=== PATIENT | female | born 1955 | race African-American/Black ===

== ENCOUNTER 2019-05-30 06:00 | Day surgery (SDC) | payer BC, MEDICARE ==
[~2019-05-30 06:00] MED LIST: CLINDAMYCIN 900MG PREMIX 50 ML IV ONE; LOSA25TA54 PO; METF500T16 PO; SIMV10TA15 PO
[2019-05-30] MEDS ORDERED: PROCHLORPERAZINE 10 MG/2 ML VIAL. IV PRN (07:00)
[2019-05-30] MEDS ORDERED: IV RINGERS,LACTATED 1000ML 1,000 ML IV SCH (07:00)
[2019-05-30] MEDS ORDERED: ONDANSETRON PF 4 MG/2 ML VIAL. IV PRN (07:00)
[2019-05-30] MEDS ORDERED: fentaNYL PF VIAL 100 MCG/2 ML VIAL IV PRN ×2 (07:00)
[2019-05-30 07:28] LABS: BASO % 1 % (0-3); EOS # 0.3 x10^3/uL (0.0-0.7); EOS % 6 % (0-3); HEMATOCRIT 36.9 % (36.0-47.0); LYMPH # 2.3 x10^3/uL (1.0-4.8); LYMPH % 49 % (24-48); MEAN CORPUSCULAR HEMOGLOBIN 26 pg (25-35); MEAN CORPUSCULAR HGB CONC 33 g/dL (31-37); MEAN CORPUSCULAR VOLUME 80 fL (79-100); MONO # 0.4 x10^3/uL (0.0-1.1); MONO % 8 % (0-9); NEUT # 1.7 x10^3/uL (1.8-7.7); NEUT % 37 % (31-73); PLATELET COUNT 319 x10^3/uL (140-400); RED BLOOD COUNT 4.61 x10^6/uL (3.50-5.40); RED CELL DISTRIBUTION WIDTH 14.4 % (11.5-14.5); WHITE BLOOD COUNT 4.8 x10^3/uL (4.0-11.0)
[2019-05-30 07:40] LABS: ALBUMIN 3.3 g/dL (3.4-5.0); ALBUMIN/GLOBULIN RATIO 0.9 (1.0-1.7); CALCIUM 9.1 mg/dL (8.5-10.1); CREATININE 0.9 mg/dL (0.6-1.0); GFR 76.3; POTASSIUM 4.2 mmol/L (3.5-5.1); TOTAL BILIRUBIN 0.1 mg/dL (0.2-1.0)
[2019-05-30] MEDS ORDERED: METHYLENE BLUE 0.5% 10ml AMPULE. IJ ONE (07:45)
--- NOTE | 2019-05-30 07:47 | HP ---
ADMIT DATE: HISTORY OF PRESENT ILLNESS: The patient is seen again for a right breast mass and pain. Apparently, she had a mammogram done, which shows a suspicious area in the upper outer quadrant of the right breast. PAST MEDICAL HISTORY: Shows no childhood diseases and she is not being treated for anything that she knows of. She did have a hysterectomy about a year ago and does not know what was done for. ALLERGIES: SHE DOES HAVE ALLERGIES TO PENICILLIN AND WHEN SHE TAKES CODEINE SHE STATES TO BE NAUSEATED. PAST SURGICAL HISTORY: The patient had a recent mammogram and it did show a suspicious area in the upper-outer quadrant of the right breast and that is why she was sent to us. FAMILY HISTORY: Noncontributory. No evidence of breast cancer. SOCIAL HISTORY: Shows that she does not use illicit drugs, smoke or drink alcoholic beverages. She has no children. a REVIEW OF SYSTEMS: Showed pain in the upper outer quadrant of both breasts, no masses are palpable and she has had no previous pathology of her breast to her knowledge. PHYSICAL EXAMINATION: GENERAL: Shows an alert female in no acute distress. HEAD, EYES, NOSE AND THROAT: Grossly normal. CHEST: Clear bilaterally to auscultation with no wheezing, rhonchi or other abnormalities. HEART: Heart had a rate of 70 beats per minute estimated and it was regular. No murmurs were noted. BREASTS: Showed as on the previous examination, no masses or other abnormalities and there was no nipple discharge. There was an ill-defined thickness in the folds but no ill-defined mass in the upper-outer quadrant of the breast. The axillary area was negative. ABDOMEN: Not examined. EXTREMITIES: Grossly normal. IMPRESSION: 1. Right breast mass. 2. She has diabetes. 3. Hypertension for which she has been treated. 4. She has hypercholesterolemia for which she takes statins. PLAN: The plan is to do a right breast biopsy. We did present the needle biopsy possibilities and explained those to her and let the radiologist do that. She wanted to have the mass removed and we will plan the same. CHALINO SAEZ MD DR: RENO/briana JOB#: [id number] / [id number] SEBLE
[2019-05-30 07:54] LABS: PROTHROMBIN TIME PATIENT 12.6 SEC (11.7-14.0)
[2019-05-30] MEDS ORDERED: METHYLENE BLUE 0.5% 10ml AMPULE. ONE (09:17)
--- NOTE | 2019-05-30 09:29 | PDOC ---
SURGICAL PROGRESS NOTE Subjective No change in dicated H&P. Vital Signs Vital Signs Date Time Temp Pulse Resp B/P (MAP) Pulse Ox O2 Delivery O2 Flow Rate FiO2 05/30/19 07:11 97.2 69 20 97 97.2 05/30/19 07:04 139/64 Room Air Labs Laboratory Tests Test 05/30/19 07:15 White Blood Count 4.8 x10^3/uL (4.0-11.0) Red Blood Count 4.61 x10^6/uL (3.50-5.40) Hemoglobin 12.0 g/dL (12.0-15.5) Hematocrit 36.9 % (36.0-47.0) Mean Corpuscular Volume 80 fL (79-100) Mean Corpuscular Hemoglobin 26 pg (25-35) Mean Corpuscular Hemoglobin Concent 33 g/dL (31-37) Red Cell Distribution Width 14.4 % (11.5-14.5) Platelet Count 319 x10^3/uL (140-400) Neutrophils (%) (Auto) 37 % (31-73) Lymphocytes (%) (Auto) 49 % (24-48) Monocytes (%) (Auto) 8 % (0-9) Eosinophils (%) (Auto) 6 % (0-3) Basophils (%) (Auto) 1 % (0-3) Neutrophils # (Auto) 1.7 x10^3/uL (1.8-7.7) Lymphocytes # (Auto) 2.3 x10^3/uL (1.0-4.8) Monocytes # (Auto) 0.4 x10^3/uL (0.0-1.1) Eosinophils # (Auto) 0.3 x10^3/uL (0.0-0.7) Basophils # (Auto) 0.0 x10^3/uL (0.0-0.2) Prothrombin Time 12.6 SEC (11.7-14.0) Prothromb Time International Ratio 1.0 (0.8-1.1) Activated Partial Thromboplast Time 28 SEC (24-38) Sodium Level 143 mmol/L (136-145) Potassium Level 4.2 mmol/L (3.5-5.1) Chloride Level 107 mmol/L (98-107) Carbon Dioxide Level 28 mmol/L (21-32) Anion Gap 8 (6-14) Blood Urea Nitrogen 13 mg/dL (7-20) Creatinine 0.9 mg/dL (0.6-1.0) Estimated GFR (Cockcroft-Gault) 76.3 BUN/Creatinine Ratio 14 (6-20) Glucose Level 165 mg/dL (70-99) Calcium Level 9.1 mg/dL (8.5-10.1) Total Bilirubin 0.1 mg/dL (0.2-1.0) Aspartate Amino Transf (AST/SGOT) 13 U/L (15-37) Alanine Aminotransferase (ALT/SGPT) 19 U/L (14-59) Alkaline Phosphatase 108 U/L (46-116) Total Protein 7.0 g/dL (6.4-8.2) Albumin 3.3 g/dL (3.4-5.0) Albumin/Globulin Ratio 0.9 (1.0-1.7) Laboratory Tests Test 05/30/19 07:15 White Blood Count 4.8 x10^3/uL (4.0-11.0) Red Blood Count 4.61 x10^6/uL (3.50-5.40) Hemoglobin 12.0 g/dL (12.0-15.5) Hematocrit 36.9 % (36.0-47.0) Mean Corpuscular Volume 80 fL (79-100) Mean Corpuscular Hemoglobin 26 pg (25-35) Mean Corpuscular Hemoglobin Concent 33 g/dL (31-37) Red Cell Distribution Width 14.4 % (11.5-14.5) Platelet Count 319 x10^3/uL (140-400) Neutrophils (%) (Auto) 37 % (31-73) Lymphocytes (%) (Auto) 49 % (24-48) Monocytes (%) (Auto) 8 % (0-9) Eosinophils (%) (Auto) 6 % (0-3) Basophils (%) (Auto) 1 % (0-3) Neutrophils # (Auto) 1.7 x10^3/uL (1.8-7.7) Lymphocytes # (Auto) 2.3 x10^3/uL (1.0-4.8) Monocytes # (Auto) 0.4 x10^3/uL (0.0-1.1) Eosinophils # (Auto) 0.3 x10^3/uL (0.0-0.7) Basophils # (Auto) 0.0 x10^3/uL (0.0-0.2) Prothrombin Time 12.6 SEC (11.7-14.0) Prothromb Time International Ratio 1.0 (0.8-1.1) Activated Partial Thromboplast Time 28 SEC (24-38) Sodium Level 143 mmol/L (136-145) Potassium Level 4.2 mmol/L (3.5-5.1) Chloride Level 107 mmol/L (98-107) Carbon Dioxide Level 28 mmol/L (21-32) Anion Gap 8 (6-14) Blood Urea Nitrogen 13 mg/dL (7-20) Creatinine 0.9 mg/dL (0.6-1.0) Estimated GFR (Cockcroft-Gault) 76.3 BUN/Creatinine Ratio 14 (6-20) Glucose Level 165 mg/dL (70-99) Calcium Level 9.1 mg/dL (8.5-10.1) Total Bilirubin 0.1 mg/dL (0.2-1.0) Aspartate Amino Transf (AST/SGOT) 13 U/L (15-37) Alanine Aminotransferase (ALT/SGPT) 19 U/L (14-59) Alkaline Phosphatase 108 U/L (46-116) Total Protein 7.0 g/dL (6.4-8.2) Albumin 3.3 g/dL (3.4-5.0) Albumin/Globulin Ratio 0.9 (1.0-1.7) CHALINO SAEZ MD May 30, 2019 09:29
--- NOTE | 2019-05-30 09:39 | PDOC ---
SURGICAL PROGRESS NOTE Subjective Surgeon: .................................................... ........................... Saez Pre-Op Diagnosis:................................................................... R Breast Biopsy Post-Op Diagnosis:................................................................. R Breast Biopsy Procedure:.......... .................................................................... R Breast Biopsy via needle localization Anesthesia:........ .....................................................................General Estimated Blood Loss: ............................. ...............................5cc [id number]......................................................................... ...........see anesthesia sheet Drains: ................................................................................ ...None Condition:... ............................................................................ Satisfactory Vital Signs Vital Signs Date Time Temp Pulse Resp B/P (MAP) Pulse Ox O2 Delivery O2 Flow Rate FiO2 05/30/19 07:11 97.2 69 20 97 97.2 05/30/19 07:04 139/64 Room Air Labs Laboratory Tests Test 05/30/19 07:15 White Blood Count 4.8 x10^3/uL (4.0-11.0) Red Blood Count 4.61 x10^6/uL (3.50-5.40) Hemoglobin 12.0 g/dL (12.0-15.5) Hematocrit 36.9 % (36.0-47.0) Mean Corpuscular Volume 80 fL (79-100) Mean Corpuscular Hemoglobin 26 pg (25-35) Mean Corpuscular Hemoglobin Concent 33 g/dL (31-37) Red Cell Distribution Width 14.4 % (11.5-14.5) Platelet Count 319 x10^3/uL (140-400) Neutrophils (%) (Auto) 37 % (31-73) Lymphocytes (%) (Auto) 49 % (24-48) Monocytes (%) (Auto) 8 % (0-9) Eosinophils (%) (Auto) 6 % (0-3) Basophils (%) (Auto) 1 % (0-3) Neutrophils # (Auto) 1.7 x10^3/uL (1.8-7.7) Lymphocytes # (Auto) 2.3 x10^3/uL (1.0-4.8) Monocytes # (Auto) 0.4 x10^3/uL (0.0-1.1) Eosinophils # (Auto) 0.3 x10^3/uL (0.0-0.7) Basophils # (Auto) 0.0 x10^3/uL (0.0-0.2) Prothrombin Time 12.6 SEC (11.7-14.0) Prothromb Time International Ratio 1.0 (0.8-1.1) Activated Partial Thromboplast Time 28 SEC (24-38) Sodium Level 143 mmol/L (136-145) Potassium Level 4.2 mmol/L (3.5-5.1) Chloride Level 107 mmol/L (98-107) Carbon Dioxide Level 28 mmol/L (21-32) Anion Gap 8 (6-14) Blood Urea Nitrogen 13 mg/dL (7-20) Creatinine 0.9 mg/dL (0.6-1.0) Estimated GFR (Cockcroft-Gault) 76.3 BUN/Creatinine Ratio 14 (6-20) Glucose Level 165 mg/dL (70-99) Calcium Level 9.1 mg/dL (8.5-10.1) Total Bilirubin 0.1 mg/dL (0.2-1.0) Aspartate Amino Transf (AST/SGOT) 13 U/L (15-37) Alanine Aminotransferase (ALT/SGPT) 19 U/L (14-59) Alkaline Phosphatase 108 U/L (46-116) Total Protein 7.0 g/dL (6.4-8.2) Albumin 3.3 g/dL (3.4-5.0) Albumin/Globulin Ratio 0.9 (1.0-1.7) Laboratory Tests Test 05/30/19 07:15 White Blood Count 4.8 x10^3/uL (4.0-11.0) Red Blood Count 4.61 x10^6/uL (3.50-5.40) Hemoglobin 12.0 g/dL (12.0-15.5) Hematocrit 36.9 % (36.0-47.0) Mean Corpuscular Volume 80 fL (79-100) Mean Corpuscular Hemoglobin 26 pg (25-35) Mean Corpuscular Hemoglobin Concent 33 g/dL (31-37) Red Cell Distribution Width 14.4 % (11.5-14.5) Platelet Count 319 x10^3/uL (140-400) Neutrophils (%) (Auto) 37 % (31-73) Lymphocytes (%) (Auto) 49 % (24-48) Monocytes (%) (Auto) 8 % (0-9) Eosinophils (%) (Auto) 6 % (0-3) Basophils (%) (Auto) 1 % (0-3) Neutrophils # (Auto) 1.7 x10^3/uL (1.8-7.7) Lymphocytes # (Auto) 2.3 x10^3/uL (1.0-4.8) Monocytes # (Auto) 0.4 x10^3/uL (0.0-1.1) Eosinophils # (Auto) 0.3 x10^3/uL (0.0-0.7) Basophils # (Auto) 0.0 x10^3/uL (0.0-0.2) Prothrombin Time 12.6 SEC (11.7-14.0) Prothromb Time International Ratio 1.0 (0.8-1.1) Activated Partial Thromboplast Time 28 SEC (24-38) Sodium Level 143 mmol/L (136-145) Potassium Level 4.2 mmol/L (3.5-5.1) Chloride Level 107 mmol/L (98-107) Carbon Dioxide Level 28 mmol/L (21-32) Anion Gap 8 (6-14) Blood Urea Nitrogen 13 mg/dL (7-20) Creatinine 0.9 mg/dL (0.6-1.0) Estimated GFR (Cockcroft-Gault) 76.3 BUN/Creatinine Ratio 14 (6-20) Glucose Level 165 mg/dL (70-99) Calcium Level 9.1 mg/dL (8.5-10.1) Total Bilirubin 0.1 mg/dL (0.2-1.0) Aspartate Amino Transf (AST/SGOT) 13 U/L (15-37) Alanine Aminotransferase (ALT/SGPT) 19 U/L (14-59) Alkaline Phosphatase 108 U/L (46-116) Total Protein 7.0 g/dL (6.4-8.2) Albumin 3.3 g/dL (3.4-5.0) Albumin/Globulin Ratio 0.9 (1.0-1.7) CHALINO SAEZ MD May 30, 2019 09:39
[2019-05-30] MEDS ORDERED: LIDOCAINE 2% PF 5 ML VIAL. ONE (10:05)
[2019-05-30] MEDS ORDERED: PROPOFOL 20 ML IV ONE (10:05)
[2019-05-30] MEDS ORDERED: fentaNYL PF VIAL 100 MCG/2 ML VIAL ONE ×3 (10:05→12:20)
[2019-05-30] MEDS ORDERED: FAMOTIDINE 20 MG/2 ML VIAL ONE (10:16)
[2019-05-30] MEDS ORDERED: ONDANSETRON PF 4 MG/2 ML VIAL. ONE (10:16)
[2019-05-30] MEDS ORDERED: DEXAMETHASONE SOD PHOS 4 MG/ML VIAL ONE (10:16)
[2019-05-30] MEDS ORDERED: DESFLURANE 61 TO 120 MINUTES IH ONE (10:51)
[2019-05-30] MEDS ORDERED: ePHEDrine PF IN SALINE 50 MG/10 ML SYRINGE. IV ONE (10:58)
[2019-05-30] MEDS ORDERED: HYDR-2759 PO (12:02)
[2019-05-30 12:30] VITALS: BP 116/54
[2019-05-30] MEDS ORDERED: PROCHLORPERAZINE 10 MG/2 ML VIAL. ONE (12:44)
--- NOTE | 2019-05-30 14:07 | RAD ---
Specimen radiograph INDICATION: 63-year-old woman recalled from screening for developing right breast calcifications and recommended for biopsy. Patient elects surgical biopsy over needle core biopsy. She is status post needle localization earlier the same day with subsequent surgical biopsy. Specimen radiograph requested to assess for presence of targeted calcifications. FINDINGS: Single radiograph of the surgical specimen indicates the presence of calcifications clustered over the 11 C grid [place]. IMPRESSION: The calcifications targeted by needle localization are clustered over the 11 C grid position. Electronically signed by: Guzman Mtz MD (05/30/2019 2:04 PM) [facility]
--- NOTE | 2019-05-30 21:58 | OP ---
DATE OF SURGERY: 05/30/2019 SURGEON: Gabriel Saez MD PREOPERATIVE DIAGNOSIS: Suspicious microcalcifications of the right breast. POSTOPERATIVE DIAGNOSIS: Suspicious microcalcifications the right breast. PROCEDURE: Right breast biopsy with needle localization. ANESTHESIA: General. TECHNIQUE: Under general anesthesia, the patient was properly prepped and draped in a routine fashion. She had needle localization of a suspicious area done and the guidewire went into the inferior lateral portion of the right breast. We therefore made an incision close to the guidewire, following the skin lines in the lateral portion of the right breast. We carried this down through the skin with a 15 blade. We then delivered the wire into the subcutaneous and out into the wound. We pulled away the skin edges using Sadiq retractors and grasped the tissue and the guidewire with a clamp. We slowly divided the tissue around the guidewire from the patient using cautery. As it got deeper, we used Lozada retractors and we were able to get probably 2-3 cm in all directions around the guidewire and followed it down past its tip. We did see the methylene blue that had been injected and therefore the area of suspicion was removed. We removed it totally using cautery and bleeding was minimal, probably only 4-5 mL. The specimen was sent to x-ray and I talked to the radiologist who looked at the specimen and had the x-ray of it and the suspicious calcifications seen in the patient preop had been removed and when the specimen that had been removed from her breast. This having been done, we inspected the wound and then approximated the deeper tissues using 3-0 and 4-0 Vicryl, obliterating the space. Once this was done, we used 5-0 subcuticular Vicryl to close the skin. A sterile dressing was applied and the procedure was terminated as she had a good cosmetic result. The blood loss as stated before was about 5 mL or less. No drains were used. FLUIDS GIVEN: Can be obtained from the anesthesia sheet. CONDITION OF THE PATIENT: Satisfactory as she has returned to the recovery room. GABRIEL SAEZ MD DR: RENO/briana JOB#: [id number] / [id number] MTDD
--- NOTE | 2019-05-31 08:32 | RAD ---
Examination: Mammographically guided right breast needle localization INDICATION: Right breast developing calcifications requested for needle localization prior to surgical excisional biopsy. COMPARISON: Bilateral screening mammogram of 03/14/2019 and right diagnostic mammogram of 03/14/2019 TECHNIQUE AND FINDINGS: The annotated cluster of calcifications recommended for biopsy are located in the posterior lateral right breast based on the outside films provided. They are a loose cluster of fine pleomorphic calcifications approximately 9 mm in maximum span that are amenable to stereotactic core needle biopsy but out of deference to patient preference, are targeted for needle localization for excisional biopsy at this visit. I performed an initial right diagnostic preprocedural planning mammogram with 2-D and 3-D technique to confirm the visibility and accessibility of the cluster of calcifications for needle localization as well as determine the optimal procedural approach. Following review of the preprocedural images, I elected to proceed with needle localization from a lateral medial approach. Informed consent was obtained and an appropriate procedural pause observed. Then using standard sterile technique, local anesthesia and mammographic imaging guidance, a 5 Amharic [place] needle was advanced from a lateral approach into the cluster of calcifications in the lateral posterior right breast. Per the referring surgeon's request, a small amount (0.4 mL) of methylene blue was injected through the needle into the planned operative cavity and a hookwire was deployed through the small cluster of calcifications requested for excisional biopsy. Postprocedural CC and LM views of the right breast with 2-D technique confirmed satisfactory positioning of the wire through the cluster of calcifications with no postprocedural complications. Patient was then transported in stable condition to the perioperative anesthesia care unit for further care and management in anticipation of surgery later the same day. IMPRESSION: Successful mammographically guided right breast needle localization of a cluster of calcifications in the lateral posterior right breast. A specimen radiograph is recommended. It should contain the targeted calcifications and localizing wire. No biopsy clip is expected as the targeted calcifications have not previously been biopsied. Discussed with Dr. Montero in person at approximately 9:55 AM on May 30, 2019.
--- NOTE | 2019-06-05 15:52 | PATHOLOGY ---
[facility] Accession Number: [id number] . 01 Material submitted: . breast - RIGHT BREAST MASS. Modifiers: right . 01 Clinical history: . Breast tumor. . 02 Diagnosis: Breast tissue, wire localized right breast biopsy: - Ancient fibroadenoma, with associated calcifications. - Fibrocystic changes, focal, with mild duct ectasia and apocrine metaplasia. . (JPM:mml; 06/01/2019) [facility] 06/05/2019 1419 Local . 02 Comment: There is no atypia or evidence of malignancy. . (JPM:mml; 06/01/2019) . 02 Electronically signed: . Deshawn Reyes MD, Pathologist NPI- [id number] . 01 Gross description: . Received in formalin labeled "Lauren Pinto, right breast mass calcs at 11-C see rad report" is an unoriented lumpectomy specimen weighing 21 g and measuring 6.5 x 6.1 x 1.0 cm. Green ink is used to indicate the area of calcifications seen on radiograph. The remainder of the external surface is inked black. A guidewire extends from one aspect of the specimen. The specimen is serially sectioned into 11 slices to reveal a yellow-rausch homogeneous cut surface without definitive lesions or masses. The area of calcifications seen on radiograph is located within slices 6-9. No biopsy clips are grossly identified. The specimen is submitted entirely as follows: A1-A2 slice 1, perpendicular sections A3-A4 slice 2 A5-A6 slice 3 A7-A8 slice 4 A9-A10 slice 5 A11-A12 slice 6 A13-A14 slice 7 A15-A16 slice 8 A17 slice 9 A18 slice 10 A19-A20 slice 11, perpendicular sections The specimen is removed from the patient at 1049 and placed in formalin at 1120 on 05/30/2019. The specimen is removed from formalin at 2340 on 05/30/2019. ([facility]; 05/30/2019) [facility] 05/30/2019 1719 Local . 02 Pathologist provided ICD-10: D24.1, N60.11, N60.41, N60.81 . 02 CPT . 026812 Specimen Comment: A courtesy copy of this report has been sent to [phone], [phone] Specimen Comment: [id number] Specimen Comment: Report sent to / DR VENTURA Performed at: 01 [facility] [address], [place] [id number] MD Wilberto Odell MD Phone: [phone] Performed at: 02 [facility] [address], [place] [id number] MD Deshawn Reyes MD Phone: [phone]
== END 2019-05-30 13:25 | disposition home or self-care (01) ==
LOC: US 06:00
PROVIDERS: ATTEND Specialist
DX: R92.0 Mammographic microcalcification found on diagnostic imaging of breast (principal); D24.1 Benign neoplasm of right breast; N60.11 Diffuse cystic mastopathy of right breast; E11.9 Type 2 diabetes mellitus without complications; I10 Essential (primary) hypertension; E78.00 Pure hypercholesterolemia, unspecified; Z79.01 Long term (current) use of anticoagulants; Z88.0 Allergy status to penicillin; Z79.84 Long term (current) use of oral hypoglycemic drugs
CPT/HCPCS: 19281; 19301; 36415; 76098; 80053; 85025; 85610; 85730; 88307; A7015; J0171; J0780; J1100; J2001; J2405; J2704; J3010; J3490; J7120

== ENCOUNTER 2019-09-29 16:57 | Inpatient (IN) | payer BC ==
[~2019-09-29] VITALS: Ht 167.6 cm; Wt 81.8 kg
[~2019-09-29 16:57] MED LIST changes: -CLINDAMYCIN 900MG PREMIX 50 ML IV ONE; +HYDR-2759 PO
[2019-09-29] MEDS ORDERED: fentaNYL PF VIAL 100 MCG/2 ML VIAL IVP ONE ×2 (17:45→19:45)
[2019-09-29] MEDS ORDERED: FAMOTIDINE 20 MG/2 ML VIAL IVP ONE (17:45)
[2019-09-29] MEDS ORDERED: IV NORMAL SALINE 1000ML BAG 1,000 ML IV ONE ×2 (17:45→21:30)
[2019-09-29 17:54] LABS: BASO # 0.1 x10^3/uL (0.0-0.2); BASO % 1 % (0-3); EOS % 0 % (0-3); HEMATOCRIT 38.9 % (36.0-47.0); HEMOGLOBIN 12.8 g/dL (12.0-15.5); LYMPH # 1.3 x10^3/uL (1.0-4.8); LYMPH % 14 % (24-48); MEAN CORPUSCULAR HEMOGLOBIN 27 pg (25-35); MEAN CORPUSCULAR HGB CONC 33 g/dL (31-37); MEAN CORPUSCULAR VOLUME 81 fL (79-100); MONO # 0.7 x10^3/uL (0.0-1.1); MONO % 7 % (0-9); NEUT # 7.6 x10^3/uL (1.8-7.7); NEUT % 79 % (31-73); PLATELET COUNT 316 x10^3/uL (140-400); RED BLOOD COUNT 4.83 x10^6/uL (3.50-5.40); RED CELL DISTRIBUTION WIDTH 13.9 % (11.5-14.5); WHITE BLOOD COUNT 9.7 x10^3/uL (4.0-11.0)
[2019-09-29 18:36] LABS: CALCIUM 8.8 mg/dL (8.5-10.1); CREATININE 0.9 mg/dL (0.6-1.0); POTASSIUM 3.8 mmol/L (3.5-5.1)
[2019-09-29 18:42] LABS: ALBUMIN 3.5 g/dL (3.4-5.0); MAGNESIUM 1.1 mg/dL (1.8-2.4); TOTAL BILIRUBIN 0.4 mg/dL (0.2-1.0); TOTAL PROTEIN 6.9 g/dL (6.4-8.2)
[2019-09-29] MEDS ORDERED: IOHEXOL 300 MG/ML 100ML VIAL. IV ONE (19:00)
[2019-09-29] MEDS ORDERED: CONTRAST GIVEN. MC PRN (19:00)
[2019-09-29 19:27] LABS: BILIRUBIN,URINE NEGATIVE (NEG); CLARITY,URINE CLEAR; COLOR,URINE YELLOW; NITRITE,URINE NEGATIVE (NEG); PROTEIN,URINE NEGATIVE (NEG-TRACE); UROBILINOGEN,URINE 0.2 mg/dL (0.2 mg/dL)
[2019-09-29] MEDS ORDERED: MAGNESIUM SULFATE 1GM 100 ML IV ONE (19:30)
[2019-09-29 19:32] LABS: BARBITURATES NEG (NEG); BENZODIAZEPINES NEG (NEG); CANNABINOIDS NEG (NEG); COCAINE NEG (NEG); METHADONE NEG (NEG); OPIATES NEG (NEG); PHENCYCLIDINE NEG (NEG)
[2019-09-29 19:37] LABS: AMPHETAMINE/METHAMPHETAMINE NEG (NEG); BACTERIA,URINE FEW /HPF (0-FEW); RBC,URINE RARE /HPF (0-2); SQUAMOUS EPITHELIAL CELL,UR FEW /LPF; WBC,URINE RARE /HPF (0-4)
--- NOTE | 2019-09-29 19:45 | PHYS DOC ---
Past Medical History Past Medical History: Bipolar, Diabetes-Type II, GERD, Hypertension, Other Additional Past Medical Histor: stomach ulcers (JOSE EDUARDO WILEY APRN) Past Surgical History: Hysterectomy, Other Additional Past Surgical Histo: Hernia (JOSE EDUARDO WILEY APRN) Smoking Status: Former Smoker Alcohol Use: None Drug Use: None (JOSE EDUARDO WILEY APRN) General Adult EDM: Chief Complaint: NAUSEA/VOMITING/DIARRHA HPI: HPI: Patient is a 64 year old female with history of acid reflux, stomach ulcers, diabetes type 2, hypertension, bipolar, who presents the ED today complaining of nausea, vomiting, diarrhea, symptoms began 2 weeks ago. Patient denies any hematemesis or melena. She reports following up with her PCP who put her on medication but she states is not helping. She is also complaining of mild intermittent abdominal pain described as mild burning. (JOSE EDUARDO WILEY APRN) Review of Systems: Review of Systems: Constitutional: Denies fever or chills. [] Eyes: Denies change in visual acuity. [] HENT: Denies nasal congestion or sore throat. [] Respiratory: Denies cough or shortness of breath. [] Cardiovascular: Denies chest pain or edema. [] GI: Reports abdominal pain, nausea vomiting and diarrhea [] : Denies dysuria. [] Musculoskeletal: Denies back pain or joint pain. [] Integument: Denies rash. [] Neurologic: Denies headache, focal weakness or sensory changes. [] Psychiatric: Denies depression or anxiety. [] (JOSE EDUARDO WILEY APRN) Heart Score: Risk Factors: Risk Factors: DM, Current or recent (<one month) smoker, HTN, HLP, family history of CAD, obesity. Risk Scores: Score 0 - 3: 2.5% MACE over next 6 weeks - Discharge Home Score 4 - 6: 20.3% MACE over next 6 weeks - Admit for Clinical Observation Score 7 - 10: 72.7% MACE over next 6 weeks - Early Invasive Strategies (JOSE EDUARDO WILEY APRN) Current Medications: Current Medications Medications (Trade) Dose Ordered Sig/Ketty Start Time Stop Time Status Last Admin Dose Admin Famotidine (Pepcid Vial) 20 mg 1X ONCE 09/29/19 17:45 09/29/19 17:46 DC 09/29/19 18:01 20 MG Fentanyl Citrate (Fentanyl 2ml Vial) 50 mcg 1X ONCE 09/29/19 19:45 09/29/19 19:46 Info (CONTRAST GIVEN -- Rx MONITORING) 1 each PRN DAILY PRN 09/29/19 19:00 10/01/19 18:59 Iohexol (Omnipaque 300 Mg/ml) 75 ml 1X ONCE 09/29/19 19:00 09/29/19 19:01 DC 09/29/19 19:26 75 ML Magnesium Sulfate/ Dextrose 100 ml @ 100 mls/hr 1X ONCE 09/29/19 19:30 09/29/19 20:29 Sodium Chloride 1,000 ml @ 1,000 mls/hr 1X ONCE 09/29/19 17:45 09/29/19 18:44 DC 09/29/19 17:59 1,000 MLS/HR (MUTUNGA,JOSE EDUARDO DENT[employer] APPLIANCE MECHANIC) Allergies: Allergies: Allergies Coded Allergies Type Severity Reaction Last Updated Verified Penicillins Allergy Intermediate 05/30/19 Yes codeine Allergy Intermediate 05/30/19 Yes (MUTUNGA,JOSE EDUARDO [employer] APPLIANCE MECHANIC) Physical Exam: PE: Constitutional: Well developed, well nourished, no acute distress, non-toxic appearance. [] HENT: Normocephalic, atraumatic, bilateral external ears normal, oropharynx moist, no oral exudates, nose normal. [] Eyes: PERRLA, EOMI, conjunctiva normal, no discharge. [] Neck: Normal range of motion, no tenderness, supple, no stridor. [] Cardiovascular:Heart rate regular rhythm, no murmur [] Lungs & Thorax: Bilateral breath sounds clear to auscultation [] Abdomen: Bowel sounds normal, soft, no tenderness, no masses, no pulsatile masses. [] Skin: Warm, dry, no erythema, no rash. [] Back: No tenderness, no CVA tenderness. [] Extremities: No tenderness, no cyanosis, no clubbing, ROM intact, no edema. [] Neurologic: Alert and oriented X 3, normal motor function, normal sensory function, no focal deficits noted. [] Psychologic: Flat affect (MUTUNGA,JOSE EDUARDO [employer] APPLIANCE MECHANIC) Current Patient Data: Labs: Laboratory Tests Test 09/29/19 17:30 09/29/19 18:15 09/29/19 19:15 White Blood Count 9.7 x10^3/uL (4.0-11.0) Red Blood Count 4.83 x10^6/uL (3.50-5.40) Hemoglobin 12.8 g/dL (12.0-15.5) Hematocrit 38.9 % (36.0-47.0) Mean Corpuscular Volume 81 fL (79-100) Mean Corpuscular Hemoglobin 27 pg (25-35) Mean Corpuscular Hemoglobin Concent 33 g/dL (31-37) Red Cell Distribution Width 13.9 % (11.5-14.5) Platelet Count 316 x10^3/uL (140-400) Neutrophils (%) (Auto) 79 % (31-73) H Lymphocytes (%) (Auto) 14 % (24-48) L Monocytes (%) (Auto) 7 % (0-9) Eosinophils (%) (Auto) 0 % (0-3) Basophils (%) (Auto) 1 % (0-3) Neutrophils # (Auto) 7.6 x10^3/uL (1.8-7.7) Lymphocytes # (Auto) 1.3 x10^3/uL (1.0-4.8) Monocytes # (Auto) 0.7 x10^3/uL (0.0-1.1) Eosinophils # (Auto) 0.0 x10^3/uL (0.0-0.7) Basophils # (Auto) 0.1 x10^3/uL (0.0-0.2) Sodium Level 136 mmol/L (136-145) Potassium Level 3.8 mmol/L (3.5-5.1) Chloride Level 102 mmol/L (98-107) Carbon Dioxide Level 26 mmol/L (21-32) Anion Gap 8 (6-14) Blood Urea Nitrogen 9 mg/dL (7-20) Creatinine 0.9 mg/dL (0.6-1.0) Estimated GFR (Cockcroft-Gault) 76.0 BUN/Creatinine Ratio 10 (6-20) Glucose Level 205 mg/dL (70-99) H Calcium Level 8.8 mg/dL (8.5-10.1) Magnesium Level 1.1 mg/dL (1.8-2.4) L Total Bilirubin 0.4 mg/dL (0.2-1.0) Aspartate Amino Transferase (AST) 14 U/L (15-37) L Alanine Aminotransferase (ALT) 22 U/L (14-59) Alkaline Phosphatase 99 U/L (46-116) Total Protein 6.9 g/dL (6.4-8.2) Albumin 3.5 g/dL (3.4-5.0) Albumin/Globulin Ratio 1.0 (1.0-1.7) Lipase 280 U/L (73-393) Ethyl Alcohol Level < 10 mg/dL (0-10) Urine Collection Type Void Urine Color Yellow Urine Clarity Clear Urine pH 6.0 (<5.0-8.0) Urine Specific Truman 1.020 (1.000-1.030) Urine Protein Negative mg/dL (NEG-TRACE) Urine Glucose (UA) 500 mg/dL (NEG) Urine Ketones (Stick) 15 mg/dL (NEG) Urine Blood Negative (NEG) Urine Nitrite Negative (NEG) Urine Bilirubin Negative (NEG) Urine Urobilinogen Dipstick 0.2 mg/dL (0.2 mg/dL) Urine Leukocyte Esterase Negative (NEG) Urine RBC Rare /HPF (0-2) Urine WBC Rare /HPF (0-4) Urine Squamous Epithelial Cells Few /LPF Urine Bacteria Few /HPF (0-FEW) Urine Mucus Slight /LPF Urine Opiates Screen Neg (NEG) Urine Methadone Screen Neg (NEG) Urine Barbiturates Neg (NEG) Urine Phencyclidine Screen Neg (NEG) Urine Amphetamine/Methamphetamine Neg (NEG) Urine Benzodiazepines Screen Neg (NEG) Urine Cocaine Screen Neg (NEG) Urine Cannabinoids Screen Neg (NEG) Urine Ethyl Alcohol Neg (NEG) Laboratory Tests 09/29/19 17:30 Laboratory Tests 09/29/19 18:15 Vital Signs: Vital Signs Date Time Temp Pulse Resp B/P (MAP) Pulse Ox O2 Delivery O2 Flow Rate FiO2 09/29/19 18:02 24 98 Room Air 09/29/19 17:20 98.4 82 203/93 (129) 98.4 (JOSE EDUARDO WILEY APRN) EKG: EKG: [] (JOSE EDUARDO WILEY APRN) Radiology/Procedures: Radiology/Procedures: []PROCEDURE: CT ABD PELV W/ IV CONTRST ONLY CT SCAN OF THE ABDOMEN AND PELVIS WITH IV CONTRAST. History: Nausea and vomiting Comparison:January 23, 2014. Procedure: Contiguous axial images of the abdomen and pelvis were performed after the administration of 75 cc of Omni 300 IV contrast. Oral contrast: No. Findings: There is mild pleural effusions in the lung bases. The gallbladder is distended and is mild wall thickening and enhancement with minimal surrounding inflammation. The appendix is normal. There is mild wall thickening of the left colon. There is a trace of free fluid in the pelvis. Liver: Unremarkable Spleen: Unremarkable Pancreas: Unremarkable Adrenal Glands: Unremarkable Kidneys: Unremarkable There is no mass or lymphadenopathy. There is no free air. The urinary bladder appears normal. Impression: 1. Mild acute cholecystitis. 2. Mild wall thickening of the left colon could be secondary to inflammatory or infectious colitis. There is no diverticulitis. There is no air in colon suggest ischemic colitis. 3. Mild bilateral pleural effusions. 4. Trace of free fluid in the pelvis. End impression PQRS Compliance Statement: One or more of the following individualized dose reduction techniques were utilized for this examination: 1. Automated exposure control 2. Adjustment of the mA and/or kV according to patient size 3. Use of iterative reconstruction technique Electronically signed by: Ryan Stinson III, MD (09/29/2019 7:52 PM) [id number] DICTATED and SIGNED BY: RYAN STINSON III, MD DATE: 09/29/191951 (JOSE EDUARDO WILEY APRN) Course & Med Decision Making: Course & Med Decision Making Pertinent Labs and Imaging studies reviewed. (See chart for details) This is a 64-year-old female patient presenting to the ED today complaining of nausea vomiting abdominal pain and diarrhea that began 2 weeks ago. Has been seen by the PCP. Reports no improvement in symptoms. CBC, UA-no acute findings, glucose 205, anion gap is normal. History of diabetes type 2 BPs 200s/[address] of the abdomen and pelvis was positive for acute cholecystitis. Started on levaquin and flagyl allergic to PCN spoke with Dr. Jacobson general surgery Spoke with Dr. Caballero who accepted patient for admission COVID 19 testing ordered for pre-op (JOSE EDUARDO WILEY APRN) Bernadine Disclaimer: Bernadine Disclaimer: This electronic medical record was generated, in whole or in part, using a voice recognition dictation system. (JOSE EDUARDO WILEY APRN) Departure Departure Impression: Primary Impression: Acute cholecystitis Additional Impression: Hyperglycemia Disposition: 09 ADMITTED INPATIENT Condition: STABLE Referrals: JODIE VENTURA (PCP) Justicifation of Admission Dx: Justifications for Admission: Justification of Admission Dx: Yes Comments: acute cholecystitis. (JOSE EDUARDO WILEY APRN) Attending Signature Attending Signature I have participated in the care of this patient and I have reviewed and agree with all pertinent clinical information above including history, exam, and recommendations. (ROSIE EAST DO) JOSE EDUARDO WILEY APRN Sep 29, 2019 19:45 ROSIE EAST DO Sep 29, 2019 22:29
--- NOTE | 2019-09-29 19:55 | RAD ---
CT SCAN OF THE ABDOMEN AND PELVIS WITH IV CONTRAST. History: Nausea and vomiting Comparison:January 23, 2014. Procedure: Contiguous axial images of the abdomen and pelvis were performed after the administration of 75 cc of Omni 300 IV contrast. Oral contrast: No. Findings: There is mild pleural effusions in the lung bases. The gallbladder is distended and is mild wall thickening and enhancement with minimal surrounding inflammation. The appendix is normal. There is mild wall thickening of the left colon. There is a trace of free fluid in the pelvis. Liver: Unremarkable Spleen: Unremarkable Pancreas: Unremarkable Adrenal Glands: Unremarkable Kidneys: Unremarkable There is no mass or lymphadenopathy. There is no free air. The urinary bladder appears normal. Impression: 1. Mild acute cholecystitis. 2. Mild wall thickening of the left colon could be secondary to inflammatory or infectious colitis. There is no diverticulitis. There is no air in colon suggest ischemic colitis. 3. Mild bilateral pleural effusions. 4. Trace of free fluid in the pelvis. End impression PQRS Compliance Statement: One or more of the following individualized dose reduction techniques were utilized for this examination: 1. Automated exposure control 2. Adjustment of the mA and/or kV according to patient size 3. Use of iterative reconstruction technique Electronically signed by: Parrish Norton III, MD (09/29/2019 7:52 PM) [id number]
[2019-09-29] MEDS ORDERED: ONDANSETRON PF 4 MG/2 ML VIAL. IV PRN (21:15)
[2019-09-29] MEDS ORDERED: LABETALOL 20 MG/4 ML DISP.SYRIN. IVP PRN (21:15)
[2019-09-29] MEDS ORDERED: LABETALOL 20 MG/4 ML DISP.SYRIN. IVP ONE (21:30)
[2019-09-29 21:45] VITALS: BP 165/87
--- NOTE | 2019-09-29 21:58 | HP ---
ADMIT DATE: 09/29/2019 CHIEF COMPLAINT: Nausea, vomiting, and diarrhea. HISTORY OF PRESENT ILLNESS: The patient is a pleasant 64-year-old female who presented with nausea, vomiting, and diarrhea that has been occurring for a couple of days, worse with food, better with no food. She states she has not ate since yesterday. While in the ER, we noted that her abdominal CT is showing cholecystitis. I discussed the case with ER physician. We are going to admit the patient and consult General Surgery. PAST MEDICAL HISTORY: Bipolar, diabetes, gastroesophageal reflux disease, hypertension, peptic ulcer disease, hysterectomy and hernia repair. ALLERGIES: PENICILLIN AND CODEINE. FAMILY HISTORY: Diabetes. SOCIAL HISTORY: She does not drink, smoke or take drugs. MEDICATIONS: Reviewed. Please refer to the MRAD. REVIEW OF SYSTEMS: GENERAL: No history of weight change, weakness or fevers. SKIN: No bruising, hair changes or rashes. EYES: No blurred, double or loss of vision. NOSE AND THROAT: No history of nosebleeds, hoarseness or sore throat. HEART: No history of palpitations, chest pain or shortness of breath on exertion. LUNGS: Denies cough, hemoptysis, wheezing or shortness of breath. GASTROINTESTINAL: She complains of nausea, vomiting, and abdominal pain. GENITOURINARY: No history of frequency, urgency, hesitancy or nocturia. NEUROLOGIC: Denies history of numbness, tingling, tremor or weakness. PSYCHIATRIC: No history of panic, anxiety or depression. ENDOCRINE: No history of heat or cold intolerance, polyuria or polydipsia. EXTREMITIES: Denies muscle weakness, joint pain, pain on walking or stiffness. PHYSICAL EXAMINATION: VITALS: Within normal limits and are stable. GENERAL: No apparent distress. Alert and oriented. HEENT: Normal cephalic atraumatic, external auditory canals are patent EYES: Extraocular muscles are intact, pupils are equally round and reactive to light and accommodation MUSCULOSKELETAL: Well developed, well nourished, good range of motion ENDOCRINE: No thyromegaly was palpated LYMPHATICS: No cervical chain or axillary nodes were noted HEMATOPOIETIC: No bruising NECK: Supple, no JVD, no thyromegaly was noted. LUNGS: Clear to auscultation in all lung del real without rhonchi or wheezing. HEART: RRR, S1, S2 present. Peripheral pulses intact, no obvious murmurs were noted. ABDOMEN: She has decreased bowel sounds and it is tender to touch. EXTREMITIES: Without any cyanosis, clubbing, or edema. Pedal pulses intact, Homans sign is negative. NEUROLOGIC: Normal speech, normal tone. A & O x3, moves all extremities, no obvious focal deficits. PSYCHIATRIC: Normal affect, normal mood. Stable. SKIN: No ulcerations or rashes, good skin turgor, no jaundice. VASCULAR: Good capillary refill, neurovascular bundle appears to be intact. LABORATORY DATA: White count 9. Electrolytes are normal. Drug screen negative. Urinalysis negative. CT of the abdomen is showing cholecystitis and possible colitis. ASSESSMENT AND PLAN: Cholecystitis. The patient will be admitted. We are consulting General Surgery. IV antibiotics, IV fluids, home meds, and DVT prophylaxis. Full code. MARIA ESTHER CHA DO DR: DEVAUGHN/briana JOB#: [id number] / [id number]
[2019-09-29] MEDS: fentaNYL PF VIAL 100 MCG/2 ML VIAL IV PRN (22:20)
[2019-09-29 23:00] VITALS: BP 160/78
[2019-09-30] VITALS (7 sets, daily range): BP systolic 135–198; BP diastolic 63–87
[2019-09-30] MEDS: fentaNYL PF VIAL 100 MCG/2 ML VIAL IV PRN ×8 (00:29→20:09)
[2019-09-30] MEDS ORDERED: HYDR25CA75 PO (04:26)
[2019-09-30] MEDS ORDERED: ILOP6TAB2 PO (04:26)
[2019-09-30] MEDS ORDERED: OMEP40CA45 PO (04:26)
[2019-09-30 10:32] LABS: BASO % 0 % (0-3); EOS % 0 % (0-3); HEMATOCRIT 35.2 % (36.0-47.0); HEMOGLOBIN 11.7 g/dL (12.0-15.5); LYMPH # 0.8 x10^3/uL (1.0-4.8); LYMPH % 8 % (24-48); MEAN CORPUSCULAR HEMOGLOBIN 26 pg (25-35); MEAN CORPUSCULAR HGB CONC 33 g/dL (31-37); MEAN CORPUSCULAR VOLUME 80 fL (79-100); MONO % 10 % (0-9); NEUT # 8.2 x10^3/uL (1.8-7.7); NEUT % 82 % (31-73); PLATELET COUNT 291 x10^3/uL (140-400); RED BLOOD COUNT 4.42 x10^6/uL (3.50-5.40); RED CELL DISTRIBUTION WIDTH 13.7 % (11.5-14.5)
[2019-09-30 10:40] LABS: CALCIUM 8.4 mg/dL (8.5-10.1); CREATININE 0.8 mg/dL (0.6-1.0); GFR 87.1; POTASSIUM 4.1 mmol/L (3.5-5.1)
--- NOTE | 2019-09-30 11:13 | PDOC ---
PROGRESS NOTES History of Present Illness History of Present Illness ASSESSMENT AND PLAN: ACUTE Cholecystitis. DIABETES admitted. consult General Surgery. IV antibiotics, IV fluids, home meds, DVT prophylaxis. Full code. GLUCOSE CONTROL d/w RN Vitals Vitals Vital Signs Date Time Temp Pulse Resp B/P (MAP) Pulse Ox O2 Delivery O2 Flow Rate FiO2 09/30/19 09:03 96 Room Air 09/30/19 08:22 95 198/87 09/30/19 07:00 99.5 16 99.5 Physical Exam Physical Exam ITALS: Within normal limits and are stable. GENERAL: No apparent distress. Alert and oriented. HEENT: Normal cephalic atraumatic, external auditory canals are patent EYES: Extraocular muscles are intact, pupils are equally round and reactive to light and accommodation MUSCULOSKELETAL: Well developed, well nourished, good range of motion ENDOCRINE: No thyromegaly was palpated LYMPHATICS: No cervical chain or axillary nodes were noted HEMATOPOIETIC: No bruising NECK: Supple, no JVD, no thyromegaly was noted. LUNGS: Clear to auscultation in all lung del real without rhonchi or wheezing. HEART: RRR, S1, S2 present. Peripheral pulses intact, no obvious murmurs were noted. ABDOMEN: She has decreased bowel sounds and it is tender to touch. EXTREMITIES: Without any cyanosis, clubbing, or edema. Pedal pulses intact, Homans sign is negative. NEUROLOGIC: Normal speech, normal tone. A & O x3, moves all extremities, no obvious focal deficits. PSYCHIATRIC: Normal affect, normal mood. Stable. SKIN: No ulcerations or rashes, good skin turgor, no jaundice. VASCULAR: Good capillary refill, neurovascular bundle appears to be intact. General: Alert, Oriented X3, Cooperative, No acute distress Heart: Regular rate Lungs: Clear Abdomen: Normal bowel sounds Extremities: No clubbing, No cyanosis Labs LABS CT SCAN OF THE ABDOMEN AND PELVIS WITH IV CONTRAST. History: Nausea and vomiting Comparison:January 23, 2014. Procedure: Contiguous axial images of the abdomen and pelvis were performed after the administration of 75 cc of Omni 300 IV contrast. Oral contrast: No. Findings: There is mild pleural effusions in the lung bases. The gallbladder is distended and is mild wall thickening and enhancement with minimal surrounding inflammation. The appendix is normal. There is mild wall thickening of the left colon. There is a trace of free fluid in the pelvis. Liver: Unremarkable Spleen: Unremarkable Pancreas: Unremarkable Adrenal Glands: Unremarkable Kidneys: Unremarkable There is no mass or lymphadenopathy. There is no free air. The urinary bladder appears normal. Impression: 1. Mild acute cholecystitis. 2. Mild wall thickening of the left colon could be secondary to inflammatory or infectious colitis. There is no diverticulitis. There is no air in colon suggest ischemic colitis. 3. Mild bilateral pleural effusions. 4. Trace of free fluid in the pelvis. End impression PQRS Compliance Statement: Laboratory Tests Test 09/29/19 17:30 09/29/19 18:15 09/29/19 19:15 09/30/19 07:33 White Blood Count 9.7 x10^3/uL (4.0-11.0) Red Blood Count 4.83 x10^6/uL (3.50-5.40) Hemoglobin 12.8 g/dL (12.0-15.5) Hematocrit 38.9 % (36.0-47.0) Mean Corpuscular Volume 81 fL (79-100) Mean Corpuscular Hemoglobin 27 pg (25-35) Mean Corpuscular Hemoglobin Concent 33 g/dL (31-37) Red Cell Distribution Width 13.9 % (11.5-14.5) Platelet Count 316 x10^3/uL (140-400) Neutrophils (%) (Auto) 79 % (31-73) Lymphocytes (%) (Auto) 14 % (24-48) Monocytes (%) (Auto) 7 % (0-9) Eosinophils (%) (Auto) 0 % (0-3) Basophils (%) (Auto) 1 % (0-3) Neutrophils # (Auto) 7.6 x10^3/uL (1.8-7.7) Lymphocytes # (Auto) 1.3 x10^3/uL (1.0-4.8) Monocytes # (Auto) 0.7 x10^3/uL (0.0-1.1) Eosinophils # (Auto) 0.0 x10^3/uL (0.0-0.7) Basophils # (Auto) 0.1 x10^3/uL (0.0-0.2) Sodium Level 136 mmol/L (136-145) Potassium Level 3.8 mmol/L (3.5-5.1) Chloride Level 102 mmol/L (98-107) Carbon Dioxide Level 26 mmol/L (21-32) Anion Gap 8 (6-14) Blood Urea Nitrogen 9 mg/dL (7-20) Creatinine 0.9 mg/dL (0.6-1.0) Estimated GFR (Cockcroft-Gault) 76.0 BUN/Creatinine Ratio 10 (6-20) Glucose Level 205 mg/dL (70-99) Calcium Level 8.8 mg/dL (8.5-10.1) Magnesium Level 1.1 mg/dL (1.8-2.4) Total Bilirubin 0.4 mg/dL (0.2-1.0) Aspartate Amino Transf (AST/SGOT) 14 U/L (15-37) Alanine Aminotransferase (ALT/SGPT) 22 U/L (14-59) Alkaline Phosphatase 99 U/L (46-116) Total Protein 6.9 g/dL (6.4-8.2) Albumin 3.5 g/dL (3.4-5.0) Albumin/Globulin Ratio 1.0 (1.0-1.7) Lipase 280 U/L (73-393) Ethyl Alcohol Level < 10 mg/dL (0-10) Urine Collection Type Void Urine Color Yellow Urine Clarity Clear Urine pH 6.0 (<5.0-8.0) Urine Specific [place] 1.020 (1.000-1.030) Urine Protein Negative mg/dL (NEG-TRACE) Urine Glucose (UA) 500 mg/dL (NEG) Urine Ketones (Stick) 15 mg/dL (NEG) Urine Blood Negative (NEG) Urine Nitrite Negative (NEG) Urine Bilirubin Negative (NEG) Urine Urobilinogen Dipstick 0.2 mg/dL (0.2 mg/dL) Urine Leukocyte Esterase Negative (NEG) Urine RBC Rare /HPF (0-2) Urine WBC Rare /HPF (0-4) Urine Squamous Epithelial Cells Few /LPF Urine Bacteria Few /HPF (0-FEW) Urine Mucus Slight /LPF Urine Opiates Screen Neg (NEG) Urine Methadone Screen Neg (NEG) Urine Barbiturates Neg (NEG) Urine Phencyclidine Screen Neg (NEG) Urine Amphetamine/Methamphetamine Neg (NEG) Urine Benzodiazepines Screen Neg (NEG) Urine Cocaine Screen Neg (NEG) Urine Cannabinoids Screen Neg (NEG) Urine Ethyl Alcohol Neg (NEG) Glucose (Fingerstick) 187 mg/dL (70-99) Test 09/30/19 10:15 White Blood Count 10.0 x10^3/uL (4.0-11.0) Red Blood Count 4.42 x10^6/uL (3.50-5.40) Hemoglobin 11.7 g/dL (12.0-15.5) Hematocrit 35.2 % (36.0-47.0) Mean Corpuscular Volume 80 fL (79-100) Mean Corpuscular Hemoglobin 26 pg (25-35) Mean Corpuscular Hemoglobin Concent 33 g/dL (31-37) Red Cell Distribution Width 13.7 % (11.5-14.5) Platelet Count 291 x10^3/uL (140-400) Neutrophils (%) (Auto) 82 % (31-73) Lymphocytes (%) (Auto) 8 % (24-48) Monocytes (%) (Auto) 10 % (0-9) Eosinophils (%) (Auto) 0 % (0-3) Basophils (%) (Auto) 0 % (0-3) Neutrophils # (Auto) 8.2 x10^3/uL (1.8-7.7) Lymphocytes # (Auto) 0.8 x10^3/uL (1.0-4.8) Monocytes # (Auto) 1.0 x10^3/uL (0.0-1.1) Eosinophils # (Auto) 0.0 x10^3/uL (0.0-0.7) Basophils # (Auto) 0.0 x10^3/uL (0.0-0.2) Sodium Level 133 mmol/L (136-145) Potassium Level 4.1 mmol/L (3.5-5.1) Chloride Level 98 mmol/L (98-107) Carbon Dioxide Level 24 mmol/L (21-32) Anion Gap 11 (6-14) Blood Urea Nitrogen 6 mg/dL (7-20) Creatinine 0.8 mg/dL (0.6-1.0) Estimated GFR (Cockcroft-Gault) 87.1 Glucose Level 208 mg/dL (70-99) Calcium Level 8.4 mg/dL (8.5-10.1) Assessment and Plan Assessmemt and Plan Problems Medical Problems: (1) Acute cholecystitis Status: Acute (2) Hyperglycemia Status: Acute Comment Review of Relevant I have reviewed the following items coleman (where applicable) has been applied. Labs Laboratory Tests Test 09/29/19 17:30 09/29/19 18:15 09/29/19 19:15 09/30/19 07:33 White Blood Count 9.7 x10^3/uL (4.0-11.0) Red Blood Count 4.83 x10^6/uL (3.50-5.40) Hemoglobin 12.8 g/dL (12.0-15.5) Hematocrit 38.9 % (36.0-47.0) Mean Corpuscular Volume 81 fL (79-100) Mean Corpuscular Hemoglobin 27 pg (25-35) Mean Corpuscular Hemoglobin Concent 33 g/dL (31-37) Red Cell Distribution Width 13.9 % (11.5-14.5) Platelet Count 316 x10^3/uL (140-400) Neutrophils (%) (Auto) 79 % (31-73) Lymphocytes (%) (Auto) 14 % (24-48) Monocytes (%) (Auto) 7 % (0-9) Eosinophils (%) (Auto) 0 % (0-3) Basophils (%) (Auto) 1 % (0-3) Neutrophils # (Auto) 7.6 x10^3/uL (1.8-7.7) Lymphocytes # (Auto) 1.3 x10^3/uL (1.0-4.8) Monocytes # (Auto) 0.7 x10^3/uL (0.0-1.1) Eosinophils # (Auto) 0.0 x10^3/uL (0.0-0.7) Basophils # (Auto) 0.1 x10^3/uL (0.0-0.2) Sodium Level 136 mmol/L (136-145) Potassium Level 3.8 mmol/L (3.5-5.1) Chloride Level 102 mmol/L (98-107) Carbon Dioxide Level 26 mmol/L (21-32) Anion Gap 8 (6-14) Blood Urea Nitrogen 9 mg/dL (7-20) Creatinine 0.9 mg/dL (0.6-1.0) Estimated GFR (Cockcroft-Gault) 76.0 BUN/Creatinine Ratio 10 (6-20) Glucose Level 205 mg/dL (70-99) Calcium Level 8.8 mg/dL (8.5-10.1) Magnesium Level 1.1 mg/dL (1.8-2.4) Total Bilirubin 0.4 mg/dL (0.2-1.0) Aspartate Amino Transf (AST/SGOT) 14 U/L (15-37) Alanine Aminotransferase (ALT/SGPT) 22 U/L (14-59) Alkaline Phosphatase 99 U/L (46-116) Total Protein 6.9 g/dL (6.4-8.2) Albumin 3.5 g/dL (3.4-5.0) Albumin/Globulin Ratio 1.0 (1.0-1.7) Lipase 280 U/L (73-393) Ethyl Alcohol Level < 10 mg/dL (0-10) Urine Collection Type Void Urine Color Yellow Urine Clarity Clear Urine pH 6.0 (<5.0-8.0) Urine Specific [place] 1.020 (1.000-1.030) Urine Protein Negative mg/dL (NEG-TRACE) Urine Glucose (UA) 500 mg/dL (NEG) Urine Ketones (Stick) 15 mg/dL (NEG) Urine Blood Negative (NEG) Urine Nitrite Negative (NEG) Urine Bilirubin Negative (NEG) Urine Urobilinogen Dipstick 0.2 mg/dL (0.2 mg/dL) Urine Leukocyte Esterase Negative (NEG) Urine RBC Rare /HPF (0-2) Urine WBC Rare /HPF (0-4) Urine Squamous Epithelial Cells Few /LPF Urine Bacteria Few /HPF (0-FEW) Urine Mucus Slight /LPF Urine Opiates Screen Neg (NEG) Urine Methadone Screen Neg (NEG) Urine Barbiturates Neg (NEG) Urine Phencyclidine Screen Neg (NEG) Urine Amphetamine/Methamphetamine Neg (NEG) Urine Benzodiazepines Screen Neg (NEG) Urine Cocaine Screen Neg (NEG) Urine Cannabinoids Screen Neg (NEG) Urine Ethyl Alcohol Neg (NEG) Glucose (Fingerstick) 187 mg/dL (70-99) Test 09/30/19 10:15 White Blood Count 10.0 x10^3/uL (4.0-11.0) Red Blood Count 4.42 x10^6/uL (3.50-5.40) Hemoglobin 11.7 g/dL (12.0-15.5) Hematocrit 35.2 % (36.0-47.0) Mean Corpuscular Volume 80 fL (79-100) Mean Corpuscular Hemoglobin 26 pg (25-35) Mean Corpuscular Hemoglobin Concent 33 g/dL (31-37) Red Cell Distribution Width 13.7 % (11.5-14.5) Platelet Count 291 x10^3/uL (140-400) Neutrophils (%) (Auto) 82 % (31-73) Lymphocytes (%) (Auto) 8 % (24-48) Monocytes (%) (Auto) 10 % (0-9) Eosinophils (%) (Auto) 0 % (0-3) Basophils (%) (Auto) 0 % (0-3) Neutrophils # (Auto) 8.2 x10^3/uL (1.8-7.7) Lymphocytes # (Auto) 0.8 x10^3/uL (1.0-4.8) Monocytes # (Auto) 1.0 x10^3/uL (0.0-1.1) Eosinophils # (Auto) 0.0 x10^3/uL (0.0-0.7) Basophils # (Auto) 0.0 x10^3/uL (0.0-0.2) Sodium Level 133 mmol/L (136-145) Potassium Level 4.1 mmol/L (3.5-5.1) Chloride Level 98 mmol/L (98-107) Carbon Dioxide Level 24 mmol/L (21-32) Anion Gap 11 (6-14) Blood Urea Nitrogen 6 mg/dL (7-20) Creatinine 0.8 mg/dL (0.6-1.0) Estimated GFR (Cockcroft-Gault) 87.1 Glucose Level 208 mg/dL (70-99) Calcium Level 8.4 mg/dL (8.5-10.1) Laboratory Tests Test 09/29/19 17:30 09/29/19 18:15 09/29/19 19:15 09/30/19 07:33 White Blood Count 9.7 x10^3/uL (4.0-11.0) Red Blood Count 4.83 x10^6/uL (3.50-5.40) Hemoglobin 12.8 g/dL (12.0-15.5) Hematocrit 38.9 % (36.0-47.0) Mean Corpuscular Volume 81 fL (79-100) Mean Corpuscular Hemoglobin 27 pg (25-35) Mean Corpuscular Hemoglobin Concent 33 g/dL (31-37) Red Cell Distribution Width 13.9 % (11.5-14.5) Platelet Count 316 x10^3/uL (140-400) Neutrophils (%) (Auto) 79 % (31-73) Lymphocytes (%) (Auto) 14 % (24-48) Monocytes (%) (Auto) 7 % (0-9) Eosinophils (%) (Auto) 0 % (0-3) Basophils (%) (Auto) 1 % (0-3) Neutrophils # (Auto) 7.6 x10^3/uL (1.8-7.7) Lymphocytes # (Auto) 1.3 x10^3/uL (1.0-4.8) Monocytes # (Auto) 0.7 x10^3/uL (0.0-1.1) Eosinophils # (Auto) 0.0 x10^3/uL (0.0-0.7) Basophils # (Auto) 0.1 x10^3/uL (0.0-0.2) Sodium Level 136 mmol/L (136-145) Potassium Level 3.8 mmol/L (3.5-5.1) Chloride Level 102 mmol/L (98-107) Carbon Dioxide Level 26 mmol/L (21-32) Anion Gap 8 (6-14) Blood Urea Nitrogen 9 mg/dL (7-20) Creatinine 0.9 mg/dL (0.6-1.0) Estimated GFR (Cockcroft-Gault) 76.0 BUN/Creatinine Ratio 10 (6-20) Glucose Level 205 mg/dL (70-99) Calcium Level 8.8 mg/dL (8.5-10.1) Magnesium Level 1.1 mg/dL (1.8-2.4) Total Bilirubin 0.4 mg/dL (0.2-1.0) Aspartate Amino Transf (AST/SGOT) 14 U/L (15-37) Alanine Aminotransferase (ALT/SGPT) 22 U/L (14-59) Alkaline Phosphatase 99 U/L (46-116) Total Protein 6.9 g/dL (6.4-8.2) Albumin 3.5 g/dL (3.4-5.0) Albumin/Globulin Ratio 1.0 (1.0-1.7) Lipase 280 U/L (73-393) Ethyl Alcohol Level < 10 mg/dL (0-10) Urine Collection Type Void Urine Color Yellow Urine Clarity Clear Urine pH 6.0 (<5.0-8.0) Urine Specific [place] 1.020 (1.000-1.030) Urine Protein Negative mg/dL (NEG-TRACE) Urine Glucose (UA) 500 mg/dL (NEG) Urine Ketones (Stick) 15 mg/dL (NEG) Urine Blood Negative (NEG) Urine Nitrite Negative (NEG) Urine Bilirubin Negative (NEG) Urine Urobilinogen Dipstick 0.2 mg/dL (0.2 mg/dL) Urine Leukocyte Esterase Negative (NEG) Urine RBC Rare /HPF (0-2) Urine WBC Rare /HPF (0-4) Urine Squamous Epithelial Cells Few /LPF Urine Bacteria Few /HPF (0-FEW) Urine Mucus Slight /LPF Urine Opiates Screen Neg (NEG) Urine Methadone Screen Neg (NEG) Urine Barbiturates Neg (NEG) Urine Phencyclidine Screen Neg (NEG) Urine Amphetamine/Methamphetamine Neg (NEG) Urine Benzodiazepines Screen Neg (NEG) Urine Cocaine Screen Neg (NEG) Urine Cannabinoids Screen Neg (NEG) Urine Ethyl Alcohol Neg (NEG) Glucose (Fingerstick) 187 mg/dL (70-99) Test 09/30/19 10:15 White Blood Count 10.0 x10^3/uL (4.0-11.0) Red Blood Count 4.42 x10^6/uL (3.50-5.40) Hemoglobin 11.7 g/dL (12.0-15.5) Hematocrit 35.2 % (36.0-47.0) Mean Corpuscular Volume 80 fL (79-100) Mean Corpuscular Hemoglobin 26 pg (25-35) Mean Corpuscular Hemoglobin Concent 33 g/dL (31-37) Red Cell Distribution Width 13.7 % (11.5-14.5) Platelet Count 291 x10^3/uL (140-400) Neutrophils (%) (Auto) 82 % (31-73) Lymphocytes (%) (Auto) 8 % (24-48) Monocytes (%) (Auto) 10 % (0-9) Eosinophils (%) (Auto) 0 % (0-3) Basophils (%) (Auto) 0 % (0-3) Neutrophils # (Auto) 8.2 x10^3/uL (1.8-7.7) Lymphocytes # (Auto) 0.8 x10^3/uL (1.0-4.8) Monocytes # (Auto) 1.0 x10^3/uL (0.0-1.1) Eosinophils # (Auto) 0.0 x10^3/uL (0.0-0.7) Basophils # (Auto) 0.0 x10^3/uL (0.0-0.2) Sodium Level 133 mmol/L (136-145) Potassium Level 4.1 mmol/L (3.5-5.1) Chloride Level 98 mmol/L (98-107) Carbon Dioxide Level 24 mmol/L (21-32) Anion Gap 11 (6-14) Blood Urea Nitrogen 6 mg/dL (7-20) Creatinine 0.8 mg/dL (0.6-1.0) Estimated GFR (Cockcroft-Gault) 87.1 Glucose Level 208 mg/dL (70-99) Calcium Level 8.4 mg/dL (8.5-10.1) Medications Current Medications Sodium Chloride 1,000 ml @ 1,000 mls/hr 1X ONCE IV Last administered on 09/29/19at 17:59; Start 09/29/19 at 17:45; Stop 09/29/19 at 18:44; Status DC Famotidine (Pepcid Vial) 20 mg 1X ONCE IVP Last administered on 09/29/19at 18:01; Start 09/29/19 at 17:45; Stop 09/29/19 at 17:46; Status DC Fentanyl Citrate (Fentanyl 2ml Vial) 50 mcg 1X ONCE IVP Last administered on 09/29/19at 18:02; Start 09/29/19 at 17:45; Stop 09/29/19 at 17:46; Status DC Iohexol (Omnipaque 300 Mg/ml) 75 ml 1X ONCE IV Last administered on 09/29/19at 19:26; Start 09/29/19 at 19:00; Stop 09/29/19 at 19:01; Status DC Info (CONTRAST GIVEN -- Rx MONITORING) 1 each PRN DAILY PRN MC SEE COMMENTS; Start 09/29/19 at 19:00; Stop 10/01/19 at 18:59 Magnesium Sulfate/ Dextrose 100 ml @ 100 mls/hr 1X ONCE IV Last administered on 09/29/19at 19:43; Start 09/29/19 at 19:30; Stop 09/29/19 at 20:29; Status DC Fentanyl Citrate (Fentanyl 2ml Vial) 50 mcg 1X ONCE IVP Last administered on 09/29/19at 19:50; Start 09/29/19 at 19:45; Stop 09/29/19 at 19:46; Status DC Levofloxacin/ Dextrose 100 ml @ 100 mls/hr 1X ONCE IV Last administered on 09/29/19at 21:30; Start 09/29/19 at 21:30; Stop 09/29/19 at 22:29; Status DC Ondansetron HCl (Zofran) 4 mg PRN Q8HRS PRN IV NAUSEA/VOMITING; Start 09/29/19 at 21:15; Stop 09/30/19 at 21:14 Fentanyl Citrate (Fentanyl 2ml Vial) 50 mcg PRN Q1HR PRN IV SEVERE PAIN 7-10 Last administered on 09/30/19at 08:19; Start 09/29/19 at 21:15; Stop 09/30/19 at 21:14 Sodium Chloride 1,000 ml @ 125 mls/hr 1X ONCE IV Last administered on 09/29/19at 21:30; Start 09/29/19 at 21:30; Stop 09/30/19 at 05:29; Status DC Labetalol HCl (Normodyne Iv Push) 10 mg PRN Q6HRS PRN IVP HYPERTENSION Last administered on 09/30/19at 08:22; Start 09/29/19 at 21:15 Labetalol HCl (Normodyne Iv Push) 10 mg 1X ONCE IVP Last administered on 09/29/19at 21:29; Start 09/29/19 at 21:30; Stop 09/29/19 at 21:31; Status DC Levofloxacin/ Dextrose 100 ml @ 100 mls/hr Q24H IV ; Start 09/30/19 at 21:00 Metronidazole 100 ml @ 100 mls/hr Q12HR IV Last administered on 09/30/19at 09:12; Start 09/30/19 at 09:00 Fentanyl Citrate (Fentanyl 2ml Vial) 25 mcg PRN Q5MIN PRN IV MILD PAIN 1-3; Start 10/01/19 at 07:00; Stop 10/02/19 at 06:59 Fentanyl Citrate (Fentanyl 2ml Vial) 50 mcg PRN Q5MIN PRN IV MODERATE TO SEVERE PAIN; Start 10/01/19 at 07:00; Stop 10/02/19 at 06:59 Ringer's Solution 1,000 ml @ 30 mls/hr Q24H IV ; Start 10/01/19 at 07:00; Stop 10/01/19 at 18:59 Prochlorperazine Edisylate (Compazine) 5 mg PACU PRN PRN IV NAUSEA, MRX1; Start 10/01/19 at 07:00; Stop 10/02/19 at 06:59 Insulin Human Lispro (HumaLOG VIAL for OP,RR ONLY) 0-10 units PRN Q1HR PRN SQ PER PROTOCOL; Start 09/30/19 at 09:30; Stop 10/01/19 at 09:29 Active Scripts Active Reported Hydroxyzine Pamoate 25 Mg Capsule 25 Mg PO QIDPRN PRN Omeprazole 40 Mg Capsule.dr 1 Cap PO DAILY Fanapt (Iloperidone) 6 Mg Tablet 1 Tab PO HS 30 Days Losartan Potassium (Losartan Potassium) 25 Mg Tablet 25 Mg PO DAILY Simvastatin 10 Mg Tablet 10 Mg PO HS Metformin Hcl 500 Mg Tablet 500 Mg PO BIDWMEALS Vitals/I & O Vital Sign - Last 24 Hours 09/29/19 09/29/19 09/29/19 09/29/19 17:20 17:52 17:56 18:02 Temp 98.4 98.4 Pulse 82 84 80 Resp 16 16 19 24 B/P (MAP) 203/93 (129) 212/86 (128) 205/84 (124) Pulse Ox 97 98 97 98 O2 Delivery Room Air Room Air Room Air Room Air 09/29/19 09/29/19 09/29/19 09/29/19 18:22 18:52 19:50 20:08 Pulse 80 72 74 Resp 24 21 17 20 B/P (MAP) 200/83 (122) 209/84 (125) 200/84 (122) Pulse Ox 97 98 99 98 O2 Delivery Room Air Room Air Room Air Room Air 09/29/19 09/29/19 09/29/19 09/29/19 20:31 21:01 21:29 21:31 Pulse 87 Resp 21 18 18 B/P (MAP) 195/78 (117) 195/84 (121) 195/84 204/84 (124) Pulse Ox 98 98 99 O2 Delivery Room Air Room Air Room Air 09/29/19 09/29/19 09/29/19 09/29/19 21:45 21:45 22:20 23:00 Temp 98.9 99.0 98.9 99.0 Pulse 80 80 Resp 18 16 B/P (MAP) 165/87 (113) 160/78 (105) Pulse Ox 98 98 O2 Delivery Room Air Room Air 09/30/19 09/30/19 09/30/19 09/30/19 00:29 00:31 01:33 02:00 O2 Delivery Room Air Room Air Room Air Room Air 09/30/19 09/30/19 09/30/19 09/30/19 02:30 03:00 03:41 05:11 Temp 99.4 99.4 Pulse 92 Resp 18 B/P (MAP) 167/82 (110) Pulse Ox 96 O2 Delivery Room Air Room Air Room Air 09/30/19 09/30/19 09/30/19 09/30/19 05:14 05:48 07:00 07:42 Temp 99.5 99.5 Pulse 95 Resp 16 B/P (MAP) 198/87 (124) Pulse Ox 97 O2 Delivery Room Air Room Air Room Air Room Air 09/30/19 09/30/19 09/30/19 08:19 08:22 09:03 Pulse 95 B/P (MAP) 198/87 Pulse Ox 96 96 O2 Delivery Room Air Room Air Intake and Output 09/29/19 09/29/19 09/30/19 15:00 23:00 07:00 Intake Total 1100 ml 0 ml Balance 1100 ml 0 ml VIJI OLSON MD Sep 30, 2019 11:13
--- NOTE | 2019-09-30 12:24 | PDOC2 ---
CONSULT Date of Consult Date of Consult DATE: 09/30/19 TIME: 12:20 History of Present Illness Reason for Visit: The patient is a 64 year old female who reported to the ER with upper abdominal and jaw pain. The pain has been present for about 2 weeks. The pain was off and on, but now is more severe and persistent. The pain does radiate to her chest and back. Past Medical History Past Medical History HTN, DM, Bipolar, hypercholesterolemia Past Surgical History Past Surgical History hysterectomy, umbilical hernia repair Social History No Lives: Alone Current Problem List Problem List Problems Medical Problems: (1) Acute cholecystitis Status: Acute (2) Hyperglycemia Status: Acute Current Medications Current Medications Current Medications Sodium Chloride 1,000 ml @ 1,000 mls/hr 1X ONCE IV Last administered on 09/29/19at 17:59; Start 09/29/19 at 17:45; Stop 09/29/19 at 18:44; Status DC Famotidine (Pepcid Vial) 20 mg 1X ONCE IVP Last administered on 09/29/19at 18:01; Start 09/29/19 at 17:45; Stop 09/29/19 at 17:46; Status DC Fentanyl Citrate (Fentanyl 2ml Vial) 50 mcg 1X ONCE IVP Last administered on 09/29/19at 18:02; Start 09/29/19 at 17:45; Stop 09/29/19 at 17:46; Status DC Iohexol (Omnipaque 300 Mg/ml) 75 ml 1X ONCE IV Last administered on 09/29/19at 19:26; Start 09/29/19 at 19:00; Stop 09/29/19 at 19:01; Status DC Info (CONTRAST GIVEN -- Rx MONITORING) 1 each PRN DAILY PRN MC SEE COMMENTS; Start 09/29/19 at 19:00; Stop 10/01/19 at 18:59 Magnesium Sulfate/ Dextrose 100 ml @ 100 mls/hr 1X ONCE IV Last administered on 09/29/19at 19:43; Start 09/29/19 at 19:30; Stop 09/29/19 at 20:29; Status DC Fentanyl Citrate (Fentanyl 2ml Vial) 50 mcg 1X ONCE IVP Last administered on 09/29/19at 19:50; Start 09/29/19 at 19:45; Stop 09/29/19 at 19:46; Status DC Levofloxacin/ Dextrose 100 ml @ 100 mls/hr 1X ONCE IV Last administered on 09/29/19at 21:30; Start 09/29/19 at 21:30; Stop 09/29/19 at 22:29; Status DC Ondansetron HCl (Zofran) 4 mg PRN Q8HRS PRN IV NAUSEA/VOMITING; Start 09/29/19 at 21:15; Stop 09/30/19 at 21:14 Fentanyl Citrate (Fentanyl 2ml Vial) 50 mcg PRN Q1HR PRN IV SEVERE PAIN 7-10 Last administered on 09/30/19at 08:19; Start 09/29/19 at 21:15; Stop 09/30/19 at 21:14 Sodium Chloride 1,000 ml @ 125 mls/hr 1X ONCE IV Last administered on 09/29/19at 21:30; Start 09/29/19 at 21:30; Stop 09/30/19 at 05:29; Status DC Labetalol HCl (Normodyne Iv Push) 10 mg PRN Q6HRS PRN IVP HYPERTENSION Last administered on 09/30/19at 08:22; Start 09/29/19 at 21:15 Labetalol HCl (Normodyne Iv Push) 10 mg 1X ONCE IVP Last administered on 09/29/19at 21:29; Start 09/29/19 at 21:30; Stop 09/29/19 at 21:31; Status DC Levofloxacin/ Dextrose 100 ml @ 100 mls/hr Q24H IV ; Start 09/30/19 at 21:00 Metronidazole 100 ml @ 100 mls/hr Q12HR IV Last administered on 09/30/19at 09:12; Start 09/30/19 at 09:00 Fentanyl Citrate (Fentanyl 2ml Vial) 25 mcg PRN Q5MIN PRN IV MILD PAIN 1-3; Start 10/01/19 at 07:00; Stop 10/02/19 at 06:59 Fentanyl Citrate (Fentanyl 2ml Vial) 50 mcg PRN Q5MIN PRN IV MODERATE TO SEVERE PAIN; Start 10/01/19 at 07:00; Stop 10/02/19 at 06:59 Ringer's Solution 1,000 ml @ 30 mls/hr Q24H IV ; Start 10/01/19 at 07:00; Stop 10/01/19 at 18:59 Prochlorperazine Edisylate (Compazine) 5 mg PACU PRN PRN IV NAUSEA, MRX1; Start 10/01/19 at 07:00; Stop 10/02/19 at 06:59 Insulin Human Lispro (HumaLOG VIAL for OP,RR ONLY) 0-10 units PRN Q1HR PRN SQ PER PROTOCOL; Start 09/30/19 at 09:30; Stop 10/01/19 at 09:29 Active Scripts Active Reported Hydroxyzine Pamoate 25 Mg Capsule 25 Mg PO QIDPRN PRN Omeprazole 40 Mg Capsule.dr 1 Cap PO DAILY Fanapt (Iloperidone) 6 Mg Tablet 1 Tab PO HS 30 Days Losartan Potassium (Losartan Potassium) 25 Mg Tablet 25 Mg PO DAILY Simvastatin 10 Mg Tablet 10 Mg PO HS Metformin Hcl 500 Mg Tablet 500 Mg PO BIDWMEALS Allergies Allergies: Coded Allergies: Penicillins (Verified Allergy, Intermediate, 05/30/19) codeine (Verified Allergy, Intermediate, 05/30/19) ROS General: No: Chills, Night Sweats, Fatigue, Malaise, Appetite, Other PSYCHOLOGICAL ROS: No: Anxiety, Behavioral Disorder, Concentration difficultie, Decreased libido, Depression, Disorientation, Hallucinations, Hostility, Irritablity, Memory difficulties, Mood Swings, Obsessive thoughts, Physical abuse, Sexual abuse, Sleep disturbances, Suicidal ideation, Other Eyes: No Blurry vision, No Decreased vision, No Double vision, No Dry eyes, No Excessive tearing, No Eye Pain, No Itchy Eyes, No Loss of vision, No Photophobia, No Scotomata, No Uses contacts, No Uses glasses, No Other HEENT: No: Heacaches, Visual Changes, Hearing change, Nasal congestion, Nasal discharge, Oral lesions, Sinus pain, Sore Throat, Epistaxis, Sneezing, Snoring, Tinnitus, Vertigo, Vocal changes, Other ALLERGY AND IMMUNOLOGY: No: Hives, Insect Bite Sensitivity, Itchy/Watery Eyes, Nasal Congestion, Post Nasal Drip, Seasonal Allergies, Other Hematological and Lymphatic: No: Bleeding Problems, Blood Clots, Blood Transfusions, Brusing, Night Sweats, Pallor, Swollen Lymph Nodes, Other ENDOCRINE: No: Breast Changes, Galactorrhea, Hair Pattern Changes, Hot Flashes, Malaise/lethargy, Mood Swings, Palpitations, Polydipsia/polyuria, Skin Changes, Temperature Intolerance, Unexpected Weight Changes, Other Respiratory: No: Cough, Hemoptysis, Orthopnea, Pleuritic Pain, Shortness of breath, SOB with excertion, Sputum Changes, Stridor, Tachypnea, Wheezing, Other Cardiovascular: yes Chest Pain Gastrointestinal: Yes Nausea, Yes Abdominal Pain Genitourinary: No Dysuria, No Frequency, No Incontinence, No Hematuria, No Retention, No Discharge, No Urgency, No Pain, No Flank Pain, No Other, No , No , No , No , No , No , No Musculoskeletal: No Gait Disturbance, No Joint Pain, No Joint Stiffness, No Joint Swelling, No Muscle Pain, No Muscular Weakness, No Pain In:, No Swelling In:, No Other Neurological: No Behavorial Changes, No Bowel/Bladder ControlChng, No Confusion, No Dizziness, No Gait Disturbance, No Headaches, No Impaired Coord/balance, No Memory Loss, No Numbness/Tingling, No Seizures, No Speech Problems, No Tremors, No Visual Changes, No Weakness, No Other Skin: No Dry Skin, No Eczema, No Hair Changes, No Lumps, No Mole Changes, No Mottling, No Nail Changes, No Pruritus, No Rash, No Skin Lesion Changes, No Other, No Acne Physical Exam General: Alert, Cooperative HEENT: PERRLA Lungs: Clear to auscultation Heart: Regular rate Abdomen: Soft (tender RUQ) Extremities: No clubbing, No cyanosis Skin: No rashes Neuro: Normal speech Psych/Mental Status: Mental status NL MUSCULOSKELETAL: No joint tenderness Vitals VITALS Vital Signs Date Time Temp Pulse Resp B/P (MAP) Pulse Ox O2 Delivery O2 Flow Rate FiO2 09/30/19 11:46 99 168/86 (113) 09/30/19 11:00 99.7 18 100 Room Air 99.7 Labs Labs Laboratory Tests Test 09/29/19 17:30 09/29/19 18:15 09/29/19 19:15 09/30/19 07:33 White Blood Count 9.7 x10^3/uL (4.0-11.0) Red Blood Count 4.83 x10^6/uL (3.50-5.40) Hemoglobin 12.8 g/dL (12.0-15.5) Hematocrit 38.9 % (36.0-47.0) Mean Corpuscular Volume 81 fL (79-100) Mean Corpuscular Hemoglobin 27 pg (25-35) Mean Corpuscular Hemoglobin Concent 33 g/dL (31-37) Red Cell Distribution Width 13.9 % (11.5-14.5) Platelet Count 316 x10^3/uL (140-400) Neutrophils (%) (Auto) 79 % (31-73) Lymphocytes (%) (Auto) 14 % (24-48) Monocytes (%) (Auto) 7 % (0-9) Eosinophils (%) (Auto) 0 % (0-3) Basophils (%) (Auto) 1 % (0-3) Neutrophils # (Auto) 7.6 x10^3/uL (1.8-7.7) Lymphocytes # (Auto) 1.3 x10^3/uL (1.0-4.8) Monocytes # (Auto) 0.7 x10^3/uL (0.0-1.1) Eosinophils # (Auto) 0.0 x10^3/uL (0.0-0.7) Basophils # (Auto) 0.1 x10^3/uL (0.0-0.2) Sodium Level 136 mmol/L (136-145) Potassium Level 3.8 mmol/L (3.5-5.1) Chloride Level 102 mmol/L (98-107) Carbon Dioxide Level 26 mmol/L (21-32) Anion Gap 8 (6-14) Blood Urea Nitrogen 9 mg/dL (7-20) Creatinine 0.9 mg/dL (0.6-1.0) Estimated GFR (Cockcroft-Gault) 76.0 BUN/Creatinine Ratio 10 (6-20) Glucose Level 205 mg/dL (70-99) Calcium Level 8.8 mg/dL (8.5-10.1) Magnesium Level 1.1 mg/dL (1.8-2.4) Total Bilirubin 0.4 mg/dL (0.2-1.0) Aspartate Amino Transf (AST/SGOT) 14 U/L (15-37) Alanine Aminotransferase (ALT/SGPT) 22 U/L (14-59) Alkaline Phosphatase 99 U/L (46-116) Total Protein 6.9 g/dL (6.4-8.2) Albumin 3.5 g/dL (3.4-5.0) Albumin/Globulin Ratio 1.0 (1.0-1.7) Lipase 280 U/L (73-393) Ethyl Alcohol Level < 10 mg/dL (0-10) Urine Collection Type Void Urine Color Yellow Urine Clarity Clear Urine pH 6.0 (<5.0-8.0) Urine Specific [place] 1.020 (1.000-1.030) Urine Protein Negative mg/dL (NEG-TRACE) Urine Glucose (UA) 500 mg/dL (NEG) Urine Ketones (Stick) 15 mg/dL (NEG) Urine Blood Negative (NEG) Urine Nitrite Negative (NEG) Urine Bilirubin Negative (NEG) Urine Urobilinogen Dipstick 0.2 mg/dL (0.2 mg/dL) Urine Leukocyte Esterase Negative (NEG) Urine RBC Rare /HPF (0-2) Urine WBC Rare /HPF (0-4) Urine Squamous Epithelial Cells Few /LPF Urine Bacteria Few /HPF (0-FEW) Urine Mucus Slight /LPF Urine Opiates Screen Neg (NEG) Urine Methadone Screen Neg (NEG) Urine Barbiturates Neg (NEG) Urine Phencyclidine Screen Neg (NEG) Urine Amphetamine/Methamphetamine Neg (NEG) Urine Benzodiazepines Screen Neg (NEG) Urine Cocaine Screen Neg (NEG) Urine Cannabinoids Screen Neg (NEG) Urine Ethyl Alcohol Neg (NEG) Glucose (Fingerstick) 187 mg/dL (70-99) Test 09/30/19 10:15 09/30/19 11:55 White Blood Count 10.0 x10^3/uL (4.0-11.0) Red Blood Count 4.42 x10^6/uL (3.50-5.40) Hemoglobin 11.7 g/dL (12.0-15.5) Hematocrit 35.2 % (36.0-47.0) Mean Corpuscular Volume 80 fL (79-100) Mean Corpuscular Hemoglobin 26 pg (25-35) Mean Corpuscular Hemoglobin Concent 33 g/dL (31-37) Red Cell Distribution Width 13.7 % (11.5-14.5) Platelet Count 291 x10^3/uL (140-400) Neutrophils (%) (Auto) 82 % (31-73) Lymphocytes (%) (Auto) 8 % (24-48) Monocytes (%) (Auto) 10 % (0-9) Eosinophils (%) (Auto) 0 % (0-3) Basophils (%) (Auto) 0 % (0-3) Neutrophils # (Auto) 8.2 x10^3/uL (1.8-7.7) Lymphocytes # (Auto) 0.8 x10^3/uL (1.0-4.8) Monocytes # (Auto) 1.0 x10^3/uL (0.0-1.1) Eosinophils # (Auto) 0.0 x10^3/uL (0.0-0.7) Basophils # (Auto) 0.0 x10^3/uL (0.0-0.2) Sodium Level 133 mmol/L (136-145) Potassium Level 4.1 mmol/L (3.5-5.1) Chloride Level 98 mmol/L (98-107) Carbon Dioxide Level 24 mmol/L (21-32) Anion Gap 11 (6-14) Blood Urea Nitrogen 6 mg/dL (7-20) Creatinine 0.8 mg/dL (0.6-1.0) Estimated GFR (Cockcroft-Gault) 87.1 Glucose Level 208 mg/dL (70-99) Calcium Level 8.4 mg/dL (8.5-10.1) Glucose (Fingerstick) 192 mg/dL (70-99) Laboratory Tests Test 09/29/19 17:30 09/29/19 18:15 09/29/19 19:15 09/30/19 07:33 White Blood Count 9.7 x10^3/uL (4.0-11.0) Red Blood Count 4.83 x10^6/uL (3.50-5.40) Hemoglobin 12.8 g/dL (12.0-15.5) Hematocrit 38.9 % (36.0-47.0) Mean Corpuscular Volume 81 fL (79-100) Mean Corpuscular Hemoglobin 27 pg (25-35) Mean Corpuscular Hemoglobin Concent 33 g/dL (31-37) Red Cell Distribution Width 13.9 % (11.5-14.5) Platelet Count 316 x10^3/uL (140-400) Neutrophils (%) (Auto) 79 % (31-73) Lymphocytes (%) (Auto) 14 % (24-48) Monocytes (%) (Auto) 7 % (0-9) Eosinophils (%) (Auto) 0 % (0-3) Basophils (%) (Auto) 1 % (0-3) Neutrophils # (Auto) 7.6 x10^3/uL (1.8-7.7) Lymphocytes # (Auto) 1.3 x10^3/uL (1.0-4.8) Monocytes # (Auto) 0.7 x10^3/uL (0.0-1.1) Eosinophils # (Auto) 0.0 x10^3/uL (0.0-0.7) Basophils # (Auto) 0.1 x10^3/uL (0.0-0.2) Sodium Level 136 mmol/L (136-145) Potassium Level 3.8 mmol/L (3.5-5.1) Chloride Level 102 mmol/L (98-107) Carbon Dioxide Level 26 mmol/L (21-32) Anion Gap 8 (6-14) Blood Urea Nitrogen 9 mg/dL (7-20) Creatinine 0.9 mg/dL (0.6-1.0) Estimated GFR (Cockcroft-Gault) 76.0 BUN/Creatinine Ratio 10 (6-20) Glucose Level 205 mg/dL (70-99) Calcium Level 8.8 mg/dL (8.5-10.1) Magnesium Level 1.1 mg/dL (1.8-2.4) Total Bilirubin 0.4 mg/dL (0.2-1.0) Aspartate Amino Transf (AST/SGOT) 14 U/L (15-37) Alanine Aminotransferase (ALT/SGPT) 22 U/L (14-59) Alkaline Phosphatase 99 U/L (46-116) Total Protein 6.9 g/dL (6.4-8.2) Albumin 3.5 g/dL (3.4-5.0) Albumin/Globulin Ratio 1.0 (1.0-1.7) Lipase 280 U/L (73-393) Ethyl Alcohol Level < 10 mg/dL (0-10) Urine Collection Type Void Urine Color Yellow Urine Clarity Clear Urine pH 6.0 (<5.0-8.0) Urine Specific Alanson 1.020 (1.000-1.030) Urine Protein Negative mg/dL (NEG-TRACE) Urine Glucose (UA) 500 mg/dL (NEG) Urine Ketones (Stick) 15 mg/dL (NEG) Urine Blood Negative (NEG) Urine Nitrite Negative (NEG) Urine Bilirubin Negative (NEG) Urine Urobilinogen Dipstick 0.2 mg/dL (0.2 mg/dL) Urine Leukocyte Esterase Negative (NEG) Urine RBC Rare /HPF (0-2) Urine WBC Rare /HPF (0-4) Urine Squamous Epithelial Cells Few /LPF Urine Bacteria Few /HPF (0-FEW) Urine Mucus Slight /LPF Urine Opiates Screen Neg (NEG) Urine Methadone Screen Neg (NEG) Urine Barbiturates Neg (NEG) Urine Phencyclidine Screen Neg (NEG) Urine Amphetamine/Methamphetamine Neg (NEG) Urine Benzodiazepines Screen Neg (NEG) Urine Cocaine Screen Neg (NEG) Urine Cannabinoids Screen Neg (NEG) Urine Ethyl Alcohol Neg (NEG) Glucose (Fingerstick) 187 mg/dL (70-99) Test 09/30/19 10:15 09/30/19 11:55 White Blood Count 10.0 x10^3/uL (4.0-11.0) Red Blood Count 4.42 x10^6/uL (3.50-5.40) Hemoglobin 11.7 g/dL (12.0-15.5) Hematocrit 35.2 % (36.0-47.0) Mean Corpuscular Volume 80 fL (79-100) Mean Corpuscular Hemoglobin 26 pg (25-35) Mean Corpuscular Hemoglobin Concent 33 g/dL (31-37) Red Cell Distribution Width 13.7 % (11.5-14.5) Platelet Count 291 x10^3/uL (140-400) Neutrophils (%) (Auto) 82 % (31-73) Lymphocytes (%) (Auto) 8 % (24-48) Monocytes (%) (Auto) 10 % (0-9) Eosinophils (%) (Auto) 0 % (0-3) Basophils (%) (Auto) 0 % (0-3) Neutrophils # (Auto) 8.2 x10^3/uL (1.8-7.7) Lymphocytes # (Auto) 0.8 x10^3/uL (1.0-4.8) Monocytes # (Auto) 1.0 x10^3/uL (0.0-1.1) Eosinophils # (Auto) 0.0 x10^3/uL (0.0-0.7) Basophils # (Auto) 0.0 x10^3/uL (0.0-0.2) Sodium Level 133 mmol/L (136-145) Potassium Level 4.1 mmol/L (3.5-5.1) Chloride Level 98 mmol/L (98-107) Carbon Dioxide Level 24 mmol/L (21-32) Anion Gap 11 (6-14) Blood Urea Nitrogen 6 mg/dL (7-20) Creatinine 0.8 mg/dL (0.6-1.0) Estimated GFR (Cockcroft-Gault) 87.1 Glucose Level 208 mg/dL (70-99) Calcium Level 8.4 mg/dL (8.5-10.1) Glucose (Fingerstick) 192 mg/dL (70-99) Assessment/Plan Assessment/Plan 64 year old female with abdominal pain, CT showing cholecystitis; recommend lap anurag; Covid test pending, will add on for tomorrow GROVER PARIS MD Sep 30, 2019 12:24
[2019-09-30] MEDS ORDERED: hydrALAZINE 20 MG/ML VIAL. IVP PRN (12:45)
[2019-09-30] MEDS ORDERED: 0.9 % SODIUM CHLORIDE 10 ML DISP.SYRIN. IV PRN (13:30)
[2019-09-30] MEDS ORDERED: ACETAMINOPHEN 650 MG SUPP.RECT. PR PRN (13:30)
[2019-09-30] MEDS ORDERED: guaiFENesin ORAL 200 MG/10 ML LIQUID. PO PRN (13:30)
[2019-09-30] MEDS ORDERED: DOCUSATE SODIUM 100 MG CAPSULE. PO PRN (13:30)
[2019-09-30] MEDS ORDERED: cloNIDine HCL 0.1 MG TABLET PO PRN (13:30)
[2019-09-30] MEDS ORDERED: SODIUM PHOSPHATES 19/7GM 133 ML ENEMA. PR PRN (13:30)
[2019-09-30] MEDS: IV NORMAL SALINE 1000ML BAG 1,000 ML IV SCH (13:48)
[2019-09-30] MEDS: LOSARTAN POTASSIUM 25 MG TABLET. PO SCH (13:48)
[2019-09-30] MEDS: ENOXAPARIN 40 MG/0.4 ML SYRINGE. SQ SCH (13:50)
--- NOTE | 2019-09-30 14:22 | EKG ---
[facility] [address] [place] [address] Test Date: 2019-09-30 Test Time: 14:14:51 Pat Name: JEANNIE LEWIS Department: Room: 434 1 Gender: F [employer] Loan [employer]: : 1955 Requested By: EVI CASIANO Order Number: [id number] Reading MD: Ganesh Knox MD Measurements Intervals [place] Rate: 104 P: 11 SC: 184 QRS: 39 QRSD: 78 T: 47 QT: 388 QTc: 517 Interpretive Statements SINUS TACHYCARDIA Electronically Signed On 10-05-2019 11:46:30 CDT by Ganesh Knox MD
[2019-09-30] MEDS: ACETAMINOPHEN 325 MG TABLET. PO PRN ×2 (16:08→23:56)
[2019-09-30] MEDS: PANTOPRAZOLE 40 MG TABLET.DR. PO SCH (16:08)
[2019-09-30] MEDS: SIMVASTATIN 10 MG TABLET PO SCH (20:11)
[2019-09-30] MEDS: ILOPERIDONE 6 MG PO SCH (20:11)
[2019-10-01] VITALS (11 sets, daily range): BP systolic 100–157; BP diastolic 45–73
[2019-10-01] MEDS ORDERED: IV RINGERS,LACTATED 1000ML 1,000 ML IV SCH (07:00)
[2019-10-01] MEDS ORDERED: PROCHLORPERAZINE 10 MG/2 ML VIAL. IV PRN (07:00)
[2019-10-01] MEDS: PANTOPRAZOLE 40 MG TABLET.DR. PO SCH (07:30)
[2019-10-01] MEDS: ACETAMINOPHEN 325 MG TABLET. PO PRN (07:40)
[2019-10-01] MEDS: LOSARTAN POTASSIUM 25 MG TABLET. PO SCH (08:01)
[2019-10-01] MEDS: IV NORMAL SALINE 1000ML BAG 1,000 ML IV SCH ×2 (08:13→20:06)
[2019-10-01] MEDS ORDERED: DEXAMETHASONE SOD PHOS 4 MG/ML VIAL ONE (08:34)
[2019-10-01] MEDS ORDERED: LIDOCAINE 2% PF 5 ML VIAL. ONE (08:34)
[2019-10-01] MEDS ORDERED: ONDANSETRON PF 4 MG/2 ML VIAL. ONE (08:34)
[2019-10-01] MEDS ORDERED: PROPOFOL 10 MG/ML (20ML) VIAL. IV ONE (08:34)
[2019-10-01] MEDS ORDERED: GLYCOPYRROLATE 1 MG/5 ML VIAL. ONE ×2 (08:35→12:03)
[2019-10-01] MEDS ORDERED: ePHEDrine PF IN SALINE 50 MG/10 ML SYRINGE. IV ONE (08:35)
[2019-10-01] MEDS ORDERED: NEOSTIGMINE METHYLSULFATE 5 MG/5 ML SYRINGE. ONE ×2 (08:38→12:02)
[2019-10-01] MEDS ORDERED: ROCURONIUM 50 MG/5 ML VIAL. ONE (08:38)
[2019-10-01] MEDS ORDERED: SUCCINYLCHOLINE 200 MG/10 ML VIAL. ONE (08:39)
[2019-10-01] MEDS ORDERED: fentaNYL PF VIAL 100 MCG/2 ML VIAL ONE ×3 (08:40→13:31)
[2019-10-01] MEDS ORDERED: IOHEXOL 300 MG/ML 50 ML VIAL. ONE (10:24)
[2019-10-01] MEDS ORDERED: SURGICEL HEMOSTAT 4X8 EACH. ONE (10:24)
[2019-10-01] MEDS ORDERED: BUPIVACAINE MPF 0.5% 30 ML VIAL. ONE (10:24)
[2019-10-01] MEDS: INSULIN LISPRO 100 UNIT/ML 3ML VIAL for OP,RR ONLY. SQ PRN ×2 (10:37→13:47)
[2019-10-01] MEDS ORDERED: VASOPRESSIN 20 UNIT/ML VIAL. ONE (11:13)
--- NOTE | 2019-10-01 11:31 | PDOC ---
PROGRESS NOTES History of Present Illness History of Present Illness ASSESSMENT AND PLAN: ACUTE Cholecystitis. DIABETES admitted. consult General Surgery. IV antibiotics, IV fluids, home meds, DVT prophylaxis. Full code. GLUCOSE CONTROL d/w RN Operative Note Operative Note Operative Note: Preoperative Diagnosis: Acute cholecystitis Postoperative Diagnosis: Severe acute cholecystitis Procedure: Laparoscopic cholecystectomy with intraoperative cholangiogram Surgeons: Kavon Staff Midwife: Isaura HEARD Anesthesia: Gen. Estimated Blood Loss: 40 mL Specimen: Gallbladder to pathology Drains: None Complications: None Vitals Vitals Vital Signs Date Time Temp Pulse Resp B/P (MAP) Pulse Ox O2 Delivery O2 Flow Rate FiO2 10/01/19 07:31 Room Air 10/01/19 07:00 101.1 119 18 157/64 (95) 97 101.1 Physical Exam Physical Exam ITALS: Within normal limits and are stable. GENERAL: No apparent distress. Alert and oriented. HEENT: Normal cephalic atraumatic, external auditory canals are patent EYES: Extraocular muscles are intact, pupils are equally round and reactive to light and accommodation MUSCULOSKELETAL: Well developed, well nourished, good range of motion ENDOCRINE: No thyromegaly was palpated LYMPHATICS: No cervical chain or axillary nodes were noted HEMATOPOIETIC: No bruising NECK: Supple, no JVD, no thyromegaly was noted. LUNGS: Clear to auscultation in all lung del real without rhonchi or wheezing. HEART: RRR, S1, S2 present. Peripheral pulses intact, no obvious murmurs were noted. ABDOMEN: She has decreased bowel sounds and it is tender to touch. EXTREMITIES: Without any cyanosis, clubbing, or edema. Pedal pulses intact, Homans sign is negative. NEUROLOGIC: Normal speech, normal tone. A & O x3, moves all extremities, no obvious focal deficits. PSYCHIATRIC: Normal affect, normal mood. Stable. SKIN: No ulcerations or rashes, good skin turgor, no jaundice. VASCULAR: Good capillary refill, neurovascular bundle appears to be intact. General: Alert, Oriented X3, Cooperative, No acute distress Heart: Regular rate, Normal S1 Lungs: Clear Abdomen: Normal bowel sounds Extremities: No clubbing, No cyanosis Skin: No rashes Labs LABS CT SCAN OF THE ABDOMEN AND PELVIS WITH IV CONTRAST. History: Nausea and vomiting Comparison:January 23, 2014. Procedure: Contiguous axial images of the abdomen and pelvis were performed after the administration of 75 cc of Omni 300 IV contrast. Oral contrast: No. Findings: There is mild pleural effusions in the lung bases. The gallbladder is distended and is mild wall thickening and enhancement with minimal surrounding inflammation. The appendix is normal. There is mild wall thickening of the left colon. There is a trace of free fluid in the pelvis. Liver: Unremarkable Spleen: Unremarkable Pancreas: Unremarkable Adrenal Glands: Unremarkable Kidneys: Unremarkable There is no mass or lymphadenopathy. There is no free air. The urinary bladder appears normal. Impression: 1. Mild acute cholecystitis. 2. Mild wall thickening of the left colon could be secondary to inflammatory or infectious colitis. There is no diverticulitis. There is no air in colon suggest ischemic colitis. 3. Mild bilateral pleural effusions. 4. Trace of free fluid in the pelvis. End impression PQRS Compliance Statement: One or more of the following individualized dose reduction techniques were utilized for this examination: 1. Automated exposure control 2. Adjustment of the mA and/or kV according to patient size 3. Use of iterative reconstruction technique Electronically signed by: Ryan Stinson III, MD (09/29/2019 7:52 PM) [id number] DICTATED and SIGNED BY: RYAN STINSON III, MD DATE: 09/29/191951 Laboratory Tests Test 09/30/19 11:55 09/30/19 16:41 09/30/19 20:24 10/01/19 01:15 Glucose (Fingerstick) 192 mg/dL (70-99) 213 mg/dL (70-99) 165 mg/dL (70-99) Lactic Acid Level 1.5 mmol/L (0.4-2.0) Test 10/01/19 07:45 10/01/19 10:31 Glucose (Fingerstick) 179 mg/dL (70-99) 162 mg/dL (70-99) Assessment and Plan Assessmemt and Plan Problems Medical Problems: (1) Acute cholecystitis Status: Acute (2) Hyperglycemia Status: Acute Comment Review of Relevant I have reviewed the following items coleman (where applicable) has been applied. Labs Laboratory Tests Test 09/29/19 17:30 09/29/19 18:15 09/29/19 19:15 09/29/19 21:35 White Blood Count 9.7 x10^3/uL (4.0-11.0) Red Blood Count 4.83 x10^6/uL (3.50-5.40) Hemoglobin 12.8 g/dL (12.0-15.5) Hematocrit 38.9 % (36.0-47.0) Mean Corpuscular Volume 81 fL (79-100) Mean Corpuscular Hemoglobin 27 pg (25-35) Mean Corpuscular Hemoglobin Concent 33 g/dL (31-37) Red Cell Distribution Width 13.9 % (11.5-14.5) Platelet Count 316 x10^3/uL (140-400) Neutrophils (%) (Auto) 79 % (31-73) Lymphocytes (%) (Auto) 14 % (24-48) Monocytes (%) (Auto) 7 % (0-9) Eosinophils (%) (Auto) 0 % (0-3) Basophils (%) (Auto) 1 % (0-3) Neutrophils # (Auto) 7.6 x10^3/uL (1.8-7.7) Lymphocytes # (Auto) 1.3 x10^3/uL (1.0-4.8) Monocytes # (Auto) 0.7 x10^3/uL (0.0-1.1) Eosinophils # (Auto) 0.0 x10^3/uL (0.0-0.7) Basophils # (Auto) 0.1 x10^3/uL (0.0-0.2) Sodium Level 136 mmol/L (136-145) Potassium Level 3.8 mmol/L (3.5-5.1) Chloride Level 102 mmol/L (98-107) Carbon Dioxide Level 26 mmol/L (21-32) Anion Gap 8 (6-14) Blood Urea Nitrogen 9 mg/dL (7-20) Creatinine 0.9 mg/dL (0.6-1.0) Estimated GFR (Cockcroft-Gault) 76.0 BUN/Creatinine Ratio 10 (6-20) Glucose Level 205 mg/dL (70-99) Calcium Level 8.8 mg/dL (8.5-10.1) Magnesium Level 1.1 mg/dL (1.8-2.4) Total Bilirubin 0.4 mg/dL (0.2-1.0) Aspartate Amino Transf (AST/SGOT) 14 U/L (15-37) Alanine Aminotransferase (ALT/SGPT) 22 U/L (14-59) Alkaline Phosphatase 99 U/L (46-116) Total Protein 6.9 g/dL (6.4-8.2) Albumin 3.5 g/dL (3.4-5.0) Albumin/Globulin Ratio 1.0 (1.0-1.7) Lipase 280 U/L (73-393) Ethyl Alcohol Level < 10 mg/dL (0-10) Urine Collection Type Void Urine Color Yellow Urine Clarity Clear Urine pH 6.0 (<5.0-8.0) Urine Specific [place] 1.020 (1.000-1.030) Urine Protein Negative mg/dL (NEG-TRACE) Urine Glucose (UA) 500 mg/dL (NEG) Urine Ketones (Stick) 15 mg/dL (NEG) Urine Blood Negative (NEG) Urine Nitrite Negative (NEG) Urine Bilirubin Negative (NEG) Urine Urobilinogen Dipstick 0.2 mg/dL (0.2 mg/dL) Urine Leukocyte Esterase Negative (NEG) Urine RBC Rare /HPF (0-2) Urine WBC Rare /HPF (0-4) Urine Squamous Epithelial Cells Few /LPF Urine Bacteria Few /HPF (0-FEW) Urine Mucus Slight /LPF Urine Opiates Screen Neg (NEG) Urine Methadone Screen Neg (NEG) Urine Barbiturates Neg (NEG) Urine Phencyclidine Screen Neg (NEG) Urine Amphetamine/Methamphetamine Neg (NEG) Urine Benzodiazepines Screen Neg (NEG) Urine Cocaine Screen Neg (NEG) Urine Cannabinoids Screen Neg (NEG) Urine Ethyl Alcohol Neg (NEG) Coronavirus (COVID-19)(PCR) Negative (NEGATIVE) Test 09/30/19 07:33 09/30/19 10:15 09/30/19 11:55 09/30/19 16:41 Glucose (Fingerstick) 187 mg/dL (70-99) 192 mg/dL (70-99) 213 mg/dL (70-99) White Blood Count 10.0 x10^3/uL (4.0-11.0) Red Blood Count 4.42 x10^6/uL (3.50-5.40) Hemoglobin 11.7 g/dL (12.0-15.5) Hematocrit 35.2 % (36.0-47.0) Mean Corpuscular Volume 80 fL (79-100) Mean Corpuscular Hemoglobin 26 pg (25-35) Mean Corpuscular Hemoglobin Concent 33 g/dL (31-37) Red Cell Distribution Width 13.7 % (11.5-14.5) Platelet Count 291 x10^3/uL (140-400) Neutrophils (%) (Auto) 82 % (31-73) Lymphocytes (%) (Auto) 8 % (24-48) Monocytes (%) (Auto) 10 % (0-9) Eosinophils (%) (Auto) 0 % (0-3) Basophils (%) (Auto) 0 % (0-3) Neutrophils # (Auto) 8.2 x10^3/uL (1.8-7.7) Lymphocytes # (Auto) 0.8 x10^3/uL (1.0-4.8) Monocytes # (Auto) 1.0 x10^3/uL (0.0-1.1) Eosinophils # (Auto) 0.0 x10^3/uL (0.0-0.7) Basophils # (Auto) 0.0 x10^3/uL (0.0-0.2) Sodium Level 133 mmol/L (136-145) Potassium Level 4.1 mmol/L (3.5-5.1) Chloride Level 98 mmol/L (98-107) Carbon Dioxide Level 24 mmol/L (21-32) Anion Gap 11 (6-14) Blood Urea Nitrogen 6 mg/dL (7-20) Creatinine 0.8 mg/dL (0.6-1.0) Estimated GFR (Cockcroft-Gault) 87.1 Glucose Level 208 mg/dL (70-99) Calcium Level 8.4 mg/dL (8.5-10.1) Test 09/30/19 20:24 10/01/19 01:15 10/01/19 07:45 10/01/19 10:31 Glucose (Fingerstick) 165 mg/dL (70-99) 179 mg/dL (70-99) 162 mg/dL (70-99) Lactic Acid Level 1.5 mmol/L (0.4-2.0) Laboratory Tests Test 09/30/19 11:55 09/30/19 16:41 09/30/19 20:24 10/01/19 01:15 Glucose (Fingerstick) 192 mg/dL (70-99) 213 mg/dL (70-99) 165 mg/dL (70-99) Lactic Acid Level 1.5 mmol/L (0.4-2.0) Test 10/01/19 07:45 10/01/19 10:31 Glucose (Fingerstick) 179 mg/dL (70-99) 162 mg/dL (70-99) Medications Current Medications Sodium Chloride 1,000 ml @ 1,000 mls/hr 1X ONCE IV Last administered on 09/29/19at 17:59; Start 09/29/19 at 17:45; Stop 09/29/19 at 18:44; Status DC Famotidine (Pepcid Vial) 20 mg 1X ONCE IVP Last administered on 09/29/19at 18:01; Start 09/29/19 at 17:45; Stop 09/29/19 at 17:46; Status DC Fentanyl Citrate (Fentanyl 2ml Vial) 50 mcg 1X ONCE IVP Last administered on 09/29/19at 18:02; Start 09/29/19 at 17:45; Stop 09/29/19 at 17:46; Status DC Iohexol (Omnipaque 300 Mg/ml) 75 ml 1X ONCE IV Last administered on 09/29/19at 19:26; Start 09/29/19 at 19:00; Stop 09/29/19 at 19:01; Status DC Info (CONTRAST GIVEN -- Rx MONITORING) 1 each PRN DAILY PRN MC SEE COMMENTS; Start 09/29/19 at 19:00; Stop 10/01/19 at 18:59 Magnesium Sulfate/ Dextrose 100 ml @ 100 mls/hr 1X ONCE IV Last administered on 09/29/19at 19:43; Start 09/29/19 at 19:30; Stop 09/29/19 at 20:29; Status DC Fentanyl Citrate (Fentanyl 2ml Vial) 50 mcg 1X ONCE IVP Last administered on 09/29/19at 19:50; Start 09/29/19 at 19:45; Stop 09/29/19 at 19:46; Status DC Levofloxacin/ Dextrose 100 ml @ 100 mls/hr 1X ONCE IV Last administered on 09/29/19at 21:30; Start 09/29/19 at 21:30; Stop 09/29/19 at 22:29; Status DC Ondansetron HCl (Zofran) 4 mg PRN Q8HRS PRN IV NAUSEA/VOMITING; Start 09/29/19 at 21:15; Stop 09/30/19 at 21:14; Status DC Fentanyl Citrate (Fentanyl 2ml Vial) 50 mcg PRN Q1HR PRN IV SEVERE PAIN 7-10 Last administered on 09/30/19at 20:09; Start 09/29/19 at 21:15; Stop 09/30/19 at 21:14; Status DC Sodium Chloride 1,000 ml @ 125 mls/hr 1X ONCE IV Last administered on 09/29/19at 21:30; Start 09/29/19 at 21:30; Stop 09/30/19 at 05:29; Status DC Labetalol HCl (Normodyne Iv Push) 10 mg PRN Q6HRS PRN IVP HYPERTENSION Last administered on 09/30/19at 08:22; Start 09/29/19 at 21:15 Labetalol HCl (Normodyne Iv Push) 10 mg 1X ONCE IVP Last administered on 09/29/19at 21:29; Start 09/29/19 at 21:30; Stop 09/29/19 at 21:31; Status DC Levofloxacin/ Dextrose 100 ml @ 100 mls/hr Q24H IV Last administered on 10/01/19at 00:37; Start 09/30/19 at 21:00 Metronidazole 100 ml @ 100 mls/hr Q12HR IV Last administered on 10/01/19at 08:14; Start 09/30/19 at 09:00 Fentanyl Citrate (Fentanyl 2ml Vial) 25 mcg PRN Q5MIN PRN IV MILD PAIN 1-3; Start 10/01/19 at 07:00; Stop 10/01/19 at 19:00 Fentanyl Citrate (Fentanyl 2ml Vial) 50 mcg PRN Q5MIN PRN IV MODERATE TO SEVERE PAIN; Start 10/01/19 at 07:00; Stop 10/01/19 at 19:00 Ringer's Solution 1,000 ml @ 30 mls/hr Q24H IV ; Start 10/01/19 at 07:00; Stop 10/01/19 at 18:59 Prochlorperazine Edisylate (Compazine) 5 mg PACU PRN PRN IV NAUSEA, MRX1; Start 10/01/19 at 07:00; Stop 10/01/19 at 19:00 Insulin Human Lispro (HumaLOG VIAL for OP,RR ONLY) 0-10 units PRN Q1HR PRN SQ PER PROTOCOL Last administered on 10/01/19at 10:37; Start 09/30/19 at 09:30; Stop 10/01/19 at 19:00 Hydralazine HCl (Apresoline Inj) 10 mg PRN Q4HRS PRN IVP ELEVATED BP, SEE COMMENTS Last administered on 09/30/19at 15:48; Start 09/30/19 at 12:45 Sodium Chloride (Normal Saline Flush) 3 ml QSHIFT PRN IV AFTER MEDS AND BLOOD DRAWS; Start 09/30/19 at 13:30 Sodium Chloride 1,000 ml @ 65 mls/hr [id number] IV Last administered on 10/01/19at 08:13; Start 09/30/19 at 13:18 Acetaminophen (Tylenol Supp) 650 mg PRN Q4HRS PRN MT TEMP OVER 100.4F OR MILD PAIN; Start 09/30/19 at 13:30 Clonidine HCl (Catapres) 0.1 mg PRN Q6HRS PRN PO SBP>160 OR DBP>90; Start 09/30/19 at 13:30 Sodium Monofluorophosphate (Fleet Adult) 133 ml PRN DAILY PRN MT CONSTIPATION; Start 09/30/19 at 13:30 Docusate Sodium (Colace) 100 mg PRN BID PRN PO HARD STOOLS; Start 09/30/19 at 13:30 Albuterol Sulfate (Ventolin Neb Soln) 2.5 mg PRN Q4HRS PRN NEB SHORTNESS OF BREATH; Start 09/30/19 at 13:30 Guaifenesin (Robitussin) 200 mg PRN Q4HRS PRN PO COUGH; Start 09/30/19 at 13:30 Enoxaparin Sodium (Lovenox 40mg Syringe) 40 mg Q24H SQ Last administered on 09/30/19at 13:50; Start 09/30/19 at 14:00 Losartan Potassium (Cozaar) 25 mg DAILY PO Last administered on 09/30/19at 13:48; Start 09/30/19 at 14:00 Simvastatin (Zocor) 10 mg HS PO Last administered on 6/6/20at 20:11; Start 09/30/19 at 21:00 Hydroxyzine HCl (Atarax) 25 mg PRN QID PRN PO ITCHING; Start 09/30/19 at 14:00 Non-Formulary Medication (Iloperidone (Fanapt)) 1 tab HS PO Last administered on 09/30/19at 20:11; Start 09/30/19 at 21:00 Pantoprazole Sodium (Protonix) 40 mg DAILYAC PO Last administered on 09/30/19at 16:08; Start 09/30/19 at 16:30 Acetaminophen (Tylenol) 650 mg PRN Q4HRS PRN PO MILD PAIN 1-3 Last administered on 10/01/19at 07:40; Start 09/30/19 at 16:15 Propofol (Diprivan) 200 mg STK-MED ONCE IV ; Start 10/01/19 at 08:34; Stop 10/01/19 at 08:35; Status DC Lidocaine HCl (Lidocaine Pf 2% Vial) 5 ml STK-MED ONCE .ROUTE ; Start 10/01/19 at 08:34; Stop 10/01/19 at 08:35; Status DC Dexamethasone Sodium Phosphate (Decadron) 4 mg STK-MED ONCE .ROUTE ; Start 10/01/19 at 08:34; Stop 10/01/19 at 08:35; Status DC Ondansetron HCl (Zofran) 4 mg STK-MED ONCE .ROUTE ; Start 10/01/19 at 08:34; Stop 10/01/19 at 08:35; Status DC Ephedrine Sulfate (ePHEDrine PF IN SALINE SYRINGE) 50 mg STK-MED ONCE IV ; Start 10/01/19 at 08:35; Stop 10/01/19 at 08:36; Status DC Glycopyrrolate (Robinul) 1 mg STK-MED ONCE .ROUTE ; Start 10/01/19 at 08:35; Stop 10/01/19 at 08:36; Status DC Neostigmine [place] (Neostigmine Methylsulfate) 5 mg STK-MED ONCE .ROUTE ; Start 10/01/19 at 08:38; Stop 10/01/19 at 08:39; Status DC Rocuronium [place] (Zemuron) 50 mg STK-MED ONCE .ROUTE ; Start 10/01/19 at 08:38; Stop 10/01/19 at 08:39; Status DC Succinylcholine Chloride (Anectine) 200 mg STK-MED ONCE .ROUTE ; Start 10/01/19 at 08:39; Stop 10/01/19 at 08:39; Status DC Fentanyl Citrate (Fentanyl 2ml Vial) 100 mcg STK-MED ONCE .ROUTE ; Start 10/01/19 at 08:40; Stop 10/01/19 at 08:40; Status DC Iohexol (Omnipaque 300 Mg/ml) 50 ml STK-MED ONCE .ROUTE ; Start 10/01/19 at 10:24; Stop 10/01/19 at 10:24; Status DC Cellulose (Surgicel Hemostat 4x8) 1 each STK-MED ONCE .ROUTE ; Start 10/01/19 at 10:24; Stop 10/01/19 at 10:24; Status DC Bupivacaine HCl (Sensorcaine Mpf 0.5%) 30 ml STK-MED ONCE .ROUTE ; Start 10/01/19 at 10:24; Stop 10/01/19 at 10:25; Status DC Vasopressin (Vasostrict) 20 unit STK-MED ONCE .ROUTE ; Start 10/01/19 at 11:13; Stop 10/01/19 at 11:13; Status DC Active Scripts Active Reported Hydroxyzine Pamoate 25 Mg Capsule 25 Mg PO QIDPRN PRN Omeprazole 40 Mg Capsule.dr 1 Cap PO DAILY Fanapt (Iloperidone) 6 Mg Tablet 1 Tab PO HS 30 Days Losartan Potassium (Losartan Potassium) 25 Mg Tablet 25 Mg PO DAILY Simvastatin 10 Mg Tablet 10 Mg PO HS Metformin Hcl 500 Mg Tablet 500 Mg PO BIDWMEALS Vitals/I & O Vital Sign - Last 24 Hours 09/30/19 09/30/19 09/30/19 09/30/19 11:46 13:48 15:00 15:48 Temp 100.1 100.1 Pulse 99 99 103 111 Resp 18 B/P (MAP) 168/86 (113) 168/86 178/81 (113) 178/81 Pulse Ox 97 09/30/19 09/30/19 09/30/19 09/30/19 16:18 16:48 18:43 19:00 Temp 99.0 99.0 Pulse 113 Resp 22 B/P (MAP) 157/68 (97) Pulse Ox 97 97 97 97 O2 Delivery Room Air Room Air Room Air Room Air 09/30/19 09/30/19 09/30/19 09/30/19 19:30 19:53 20:09 23:00 Temp 101.1 101.1 Pulse 121 Resp 20 B/P (MAP) 135/63 (87) Pulse Ox 99 O2 Delivery Room Air Room Air Room Air Room Air 10/01/19 10/01/19 10/01/19 10/01/19 00:45 01:56 03:00 07:00 Temp 100.1 99.7 97.9 101.1 100.1 99.7 97.9 101.1 Pulse 117 119 Resp 20 18 B/P (MAP) 135/57 (83) 157/64 (95) Pulse Ox 98 97 O2 Delivery Room Air Room Air 10/01/19 07:31 O2 Delivery Room Air Intake and Output 09/30/19 09/30/19 10/01/19 15:00 23:00 07:00 Intake Total 240 ml 240 ml 100 ml Output Total 1 ml Balance 240 ml 239 ml 100 ml VIJI OLSON MD Oct 01, 2019 11:31
[2019-10-01] MEDS ORDERED: SEVOFLURANE 61 TO 120 MINUTES. IH ONE (12:02)
--- NOTE | 2019-10-01 12:52 | RAD ---
Intraoperative cholangiogram fluoroscopy 10/01/2019 12:00 AM INDICATION: Cholangiogram COMPARISON: CT abdomen/pelvis September 29, 2019 TECHNIQUE: 3 fluoroscopic spot views are provided. Fluoroscopy time: 0.3 minutes FINDINGS: Fluoroscopy is provided for intraoperative use. Contrast opacification of the biliary tree including the cystic duct, hepatic ducts and common bile duct. There is extrinsic mass effect on the junction of the hepatic duct and common bile duct which may be secondary to an adjacent bowel loop. There is minimal filling of the main pancreatic duct. No intrinsic filling defects are visualized. IMPRESSION: 1. Intraoperative cholangiogram utilizing fluoroscopy. 2. Please refer to the separate operative report for further details. Electronically signed by: Cristal Powers MD (10/01/2019 12:49 PM) BRANDY
--- NOTE | 2019-10-01 13:01 | PDOC4 ---
Operative Note Operative Note Operative Note: Preoperative Diagnosis: Acute cholecystitis Postoperative Diagnosis: Severe acute cholecystitis Procedure: Laparoscopic cholecystectomy with intraoperative cholangiogram Surgeons: Kavon Jackhammer Operator: Isaura HEARD Anesthesia: Gen. Estimated Blood Loss: 40 mL Specimen: Gallbladder to pathology Drains: None Complications: None Indications: The patient is a 64-year-old female presented with abdominal pain. Her evaluation is consistent with acute cholecystitis. Surgical treatment was offered by means of a laparoscopic cholecystectomy. The risks of surgery were discussed which include bleeding, infection, bile duct injury, bile leak, pain, the potential for additional surgeries or procedures. The patient understands and would like to proceed. Description: The patient was taken to the operating room and laid supine on the operating table. General anesthesia was performed. The abdomen was prepped with ChloraPrep and draped in a standard surgical fashion. A small infraumbilical incision was made with a scalpel. The Veress needle was then inserted and a pneumoperitoneum was then created. A 5 mm trocar was then inserted and the laparoscope was introduced. In the upper midabdomen a 12 mm trocar was inserted and in the right upper quadrant two 5 mm trocar were inserted. The gallbladder was initially obscured by adherent omentum. This was peeled away revealing a markedly inflamed fibrotic and distended gallbladder. The gallbladder was aspirated with retrieval of derek pus. The gallbladder was retracted cephalad which was difficult due to the fibrotic changes of the wall. We began dissection along the inferior aspect of the gallbladder. The region of the cystic duct showed marked inflammatory change as well. This made clear identification of the cystic duct very difficult. We were able to dissect around the area of the cystic duct. It was very fibrotic and enlarged and we attempted to control it with a stapler device as we didn't feel that clips would hold. The tissues fractured however and the duct remained open. Through the op ening we did obtain a cholangiogram. This did confirm that this was a cystic duct and no other major ductal abnormalities were identified. Contrast did pass into the duodenum. The clip and catheter were both withdrawn and we were able to secure the cystic duct with large clips. The cystic artery was then identified, dissected free, doubly clipped and divided as well. The gallbladder was then mobilized away from the liver with cautery. A Surgicel pack was placed on the gallbladder fossa to assist with hemostasis. A 19 Greek round Mitchell drain was left in the right upper quadrant with an exit site in the right lateral port. This was secured to the skin with 2-0 silk. The gallbladder was then placed in an endoscopic bag and extracted at the superior incisional site. The fascia there was closed with an 0 PDS sutures. All blood and irrigation fluid was suctioned and hemostasis was good. The remaining ports were removed and the pneumoperitoneum was relieved. The skin incisions were injected with half percent Marcaine with epinephrine, and all were closed using 4-0 Monocryl suture. Steri-Strips and dressings were then applied. The patient tolerated the procedure well and was sent to the recovery room in stable condition. At the end of the case all counts were correct. GROVER PARIS MD Oct 01, 2019 13:01
[2019-10-01] MEDS: fentaNYL PF VIAL 100 MCG/2 ML VIAL IV PRN ×5 (13:10→13:44)
[2019-10-01] MEDS: HYDROcodone/APAP 5/325MG 1 TAB TABLET PO PRN ×3 (15:00→21:59)
[2019-10-01] MEDS: SIMVASTATIN 10 MG TABLET PO SCH (20:38)
[2019-10-01] MEDS: ENOXAPARIN 40 MG/0.4 ML SYRINGE. SQ SCH (21:00)
[2019-10-01] MEDS: ILOPERIDONE 6 MG PO SCH (21:55)
[2019-10-02] MEDS: HYDROcodone/APAP 5/325MG 1 TAB TABLET PO PRN ×4 (02:47→16:22)
[2019-10-02 03:00] VITALS: BP 125/60
[2019-10-02 06:01] LABS: BASO % 0 % (0-3); EOS % 0 % (0-3); HEMATOCRIT 29.1 % (36.0-47.0); HEMOGLOBIN 9.9 g/dL (12.0-15.5); LYMPH # 0.7 x10^3/uL (1.0-4.8); LYMPH % 7 % (24-48); MEAN CORPUSCULAR HEMOGLOBIN 27 pg (25-35); MEAN CORPUSCULAR HGB CONC 34 g/dL (31-37); MEAN CORPUSCULAR VOLUME 79 fL (79-100); MONO % 10 % (0-9); NEUT # 8.4 x10^3/uL (1.8-7.7); NEUT % 83 % (31-73); PLATELET COUNT 255 x10^3/uL (140-400); RED BLOOD COUNT 3.67 x10^6/uL (3.50-5.40); RED CELL DISTRIBUTION WIDTH 14.2 % (11.5-14.5); WHITE BLOOD COUNT 10.1 x10^3/uL (4.0-11.0)
[2019-10-02 06:03] LABS: ALBUMIN 2.3 g/dL (3.4-5.0); ALBUMIN/GLOBULIN RATIO 0.5 (1.0-1.7); CALCIUM 8.4 mg/dL (8.5-10.1); CREATININE 0.9 mg/dL (0.6-1.0); POTASSIUM 3.7 mmol/L (3.5-5.1); TOTAL BILIRUBIN 0.2 mg/dL (0.2-1.0); TOTAL PROTEIN 6.5 g/dL (6.4-8.2)
[2019-10-02] MEDS: PANTOPRAZOLE 40 MG TABLET.DR. PO SCH (06:30)
[2019-10-02] MEDS: IV NORMAL SALINE 1000ML BAG 1,000 ML IV SCH ×2 (06:41→23:47)
[2019-10-02 07:10] VITALS: BP 140/62
[2019-10-02] MEDS: LOSARTAN POTASSIUM 25 MG TABLET. PO SCH (08:28)
--- NOTE | 2019-10-02 09:26 | PDOC ---
MARLEY DUNNE GASOLINE ATTENDANT 10/02/19 0925: SURGICAL PROGRESS NOTE Subjective nausea after breakfast pain managed Vital Signs Vital Signs Date Time Temp Pulse Resp B/P (MAP) Pulse Ox O2 Delivery O2 Flow Rate FiO2 10/02/19 08:28 84 140/62 10/02/19 07:53 Room Air 10/02/19 07:10 98.4 20 94 98.4 10/01/19 21:59 3.0 I&O Intake and Output 10/02/19 07:00 Intake Total 680 ml Output Total 190 ml Balance 490 ml Intake Oral 680 ml Output Urine Total 150 ml Estimated Blood Loss 40 ml # Voids 3 General: Alert, Oriented X3, Cooperative Abdomen: Soft, Other (lap dressings dry, drain serosang) Labs Laboratory Tests Test 09/30/19 10:15 09/30/19 11:55 09/30/19 16:41 09/30/19 20:24 White Blood Count 10.0 x10^3/uL (4.0-11.0) Red Blood Count 4.42 x10^6/uL (3.50-5.40) Hemoglobin 11.7 g/dL (12.0-15.5) Hematocrit 35.2 % (36.0-47.0) Mean Corpuscular Volume 80 fL (79-100) Mean Corpuscular Hemoglobin 26 pg (25-35) Mean Corpuscular Hemoglobin Concent 33 g/dL (31-37) Red Cell Distribution Width 13.7 % (11.5-14.5) Platelet Count 291 x10^3/uL (140-400) Neutrophils (%) (Auto) 82 % (31-73) Lymphocytes (%) (Auto) 8 % (24-48) Monocytes (%) (Auto) 10 % (0-9) Eosinophils (%) (Auto) 0 % (0-3) Basophils (%) (Auto) 0 % (0-3) Neutrophils # (Auto) 8.2 x10^3/uL (1.8-7.7) Lymphocytes # (Auto) 0.8 x10^3/uL (1.0-4.8) Monocytes # (Auto) 1.0 x10^3/uL (0.0-1.1) Eosinophils # (Auto) 0.0 x10^3/uL (0.0-0.7) Basophils # (Auto) 0.0 x10^3/uL (0.0-0.2) Sodium Level 133 mmol/L (136-145) Potassium Level 4.1 mmol/L (3.5-5.1) Chloride Level 98 mmol/L (98-107) Carbon Dioxide Level 24 mmol/L (21-32) Anion Gap 11 (6-14) Blood Urea Nitrogen 6 mg/dL (7-20) Creatinine 0.8 mg/dL (0.6-1.0) Estimated GFR (Cockcroft-Gault) 87.1 Glucose Level 208 mg/dL (70-99) Calcium Level 8.4 mg/dL (8.5-10.1) Glucose (Fingerstick) 192 mg/dL (70-99) 213 mg/dL (70-99) 165 mg/dL (70-99) Test 10/01/19 01:15 10/01/19 07:45 10/01/19 10:31 10/01/19 13:43 Lactic Acid Level 1.5 mmol/L (0.4-2.0) Glucose (Fingerstick) 179 mg/dL (70-99) 162 mg/dL (70-99) 178 mg/dL (70-99) Test 10/01/19 16:55 10/01/19 20:25 10/02/19 05:23 10/02/19 07:11 Glucose (Fingerstick) 145 mg/dL (70-99) 195 mg/dL (70-99) 160 mg/dL (70-99) White Blood Count 10.1 x10^3/uL (4.0-11.0) Red Blood Count 3.67 x10^6/uL (3.50-5.40) Hemoglobin 9.9 g/dL (12.0-15.5) Hematocrit 29.1 % (36.0-47.0) Mean Corpuscular Volume 79 fL (79-100) Mean Corpuscular Hemoglobin 27 pg (25-35) Mean Corpuscular Hemoglobin Concent 34 g/dL (31-37) Red Cell Distribution Width 14.2 % (11.5-14.5) Platelet Count 255 x10^3/uL (140-400) Neutrophils (%) (Auto) 83 % (31-73) Lymphocytes (%) (Auto) 7 % (24-48) Monocytes (%) (Auto) 10 % (0-9) Eosinophils (%) (Auto) 0 % (0-3) Basophils (%) (Auto) 0 % (0-3) Neutrophils # (Auto) 8.4 x10^3/uL (1.8-7.7) Lymphocytes # (Auto) 0.7 x10^3/uL (1.0-4.8) Monocytes # (Auto) 1.0 x10^3/uL (0.0-1.1) Eosinophils # (Auto) 0.0 x10^3/uL (0.0-0.7) Basophils # (Auto) 0.0 x10^3/uL (0.0-0.2) Sodium Level 138 mmol/L (136-145) Potassium Level 3.7 mmol/L (3.5-5.1) Chloride Level 105 mmol/L (98-107) Carbon Dioxide Level 24 mmol/L (21-32) Anion Gap 9 (6-14) Blood Urea Nitrogen 9 mg/dL (7-20) Creatinine 0.9 mg/dL (0.6-1.0) Estimated GFR (Cockcroft-Gault) 76.0 BUN/Creatinine Ratio 10 (6-20) Glucose Level 180 mg/dL (70-99) Calcium Level 8.4 mg/dL (8.5-10.1) Total Bilirubin 0.2 mg/dL (0.2-1.0) Aspartate Amino Transf (AST/SGOT) 43 U/L (15-37) Alanine Aminotransferase (ALT/SGPT) 59 U/L (14-59) Alkaline Phosphatase 88 U/L (46-116) Total Protein 6.5 g/dL (6.4-8.2) Albumin 2.3 g/dL (3.4-5.0) Albumin/Globulin Ratio 0.5 (1.0-1.7) Laboratory Tests Test 10/01/19 10:31 10/01/19 13:43 10/01/19 16:55 10/01/19 20:25 Glucose (Fingerstick) 162 mg/dL (70-99) 178 mg/dL (70-99) 145 mg/dL (70-99) 195 mg/dL (70-99) Test 10/02/19 05:23 10/02/19 07:11 White Blood Count 10.1 x10^3/uL (4.0-11.0) Red Blood Count 3.67 x10^6/uL (3.50-5.40) Hemoglobin 9.9 g/dL (12.0-15.5) Hematocrit 29.1 % (36.0-47.0) Mean Corpuscular Volume 79 fL (79-100) Mean Corpuscular Hemoglobin 27 pg (25-35) Mean Corpuscular Hemoglobin Concent 34 g/dL (31-37) Red Cell Distribution Width 14.2 % (11.5-14.5) Platelet Count 255 x10^3/uL (140-400) Neutrophils (%) (Auto) 83 % (31-73) Lymphocytes (%) (Auto) 7 % (24-48) Monocytes (%) (Auto) 10 % (0-9) Eosinophils (%) (Auto) 0 % (0-3) Basophils (%) (Auto) 0 % (0-3) Neutrophils # (Auto) 8.4 x10^3/uL (1.8-7.7) Lymphocytes # (Auto) 0.7 x10^3/uL (1.0-4.8) Monocytes # (Auto) 1.0 x10^3/uL (0.0-1.1) Eosinophils # (Auto) 0.0 x10^3/uL (0.0-0.7) Basophils # (Auto) 0.0 x10^3/uL (0.0-0.2) Sodium Level 138 mmol/L (136-145) Potassium Level 3.7 mmol/L (3.5-5.1) Chloride Level 105 mmol/L (98-107) Carbon Dioxide Level 24 mmol/L (21-32) Anion Gap 9 (6-14) Blood Urea Nitrogen 9 mg/dL (7-20) Creatinine 0.9 mg/dL (0.6-1.0) Estimated GFR (Cockcroft-Gault) 76.0 BUN/Creatinine Ratio 10 (6-20) Glucose Level 180 mg/dL (70-99) Calcium Level 8.4 mg/dL (8.5-10.1) Total Bilirubin 0.2 mg/dL (0.2-1.0) Aspartate Amino Transf (AST/SGOT) 43 U/L (15-37) Alanine Aminotransferase (ALT/SGPT) 59 U/L (14-59) Alkaline Phosphatase 88 U/L (46-116) Total Protein 6.5 g/dL (6.4-8.2) Albumin 2.3 g/dL (3.4-5.0) Albumin/Globulin Ratio 0.5 (1.0-1.7) Glucose (Fingerstick) 160 mg/dL (70-99) Problem List Problems Medical Problems: (1) Acute cholecystitis Status: Acute (2) Hyperglycemia Status: Acute Assessment/Plan s/p anurag drain nausea meds Justicifation of Admission Dx: Justifications for Admission: Justification of Admission Dx: Yes Comments: cholecystitis GROVER PARIS MD 10/02/19 1234: SURGICAL PROGRESS NOTE Assessment/Plan Agree with above MARLEY DUNNE APRN Oct 02, 2019 09:25 GROVER PARIS MD Oct 02, 2019 12:34
[2019-10-02] MEDS ORDERED: ONDANSETRON PF 4 MG/2 ML VIAL. IVP PRN (09:30)
[2019-10-02] MEDS: ACETAMINOPHEN 325 MG TABLET. PO PRN ×2 (09:30→14:41)
[2019-10-02 10:31] VITALS: BP 126/62
[2019-10-02] MEDS ORDERED: fentaNYL PF VIAL 100 MCG/2 ML VIAL IVP PRN (14:15)
[2019-10-02 15:00] VITALS: BP 128/63
[2019-10-02] MEDS: FLUTICASONE 50MCG/NASAL SPRAY 16GM BOTTLE. NS SCH (17:43)
[2019-10-02] MEDS: ALBUTEROL SULFATE 2.5 MG/3 ML NEBU. NEB PRN (18:06)
[2019-10-02 19:00] VITALS: BP 121/56
[2019-10-02] MEDS: ILOPERIDONE 6 MG PO SCH (21:00)
[2019-10-02] MEDS: SIMVASTATIN 10 MG TABLET PO SCH (21:05)
[2019-10-02] MEDS: LACTOBACILLUS RHAMNOSUS GG 1 CAPSULE. PO SCH (21:05)
[2019-10-02] MEDS: ENOXAPARIN 40 MG/0.4 ML SYRINGE. SQ SCH (21:08)
[2019-10-02 23:00] VITALS: BP 151/74
[2019-10-03 03:00] VITALS: BP 153/61
[2019-10-03 06:50] VITALS: BP 143/65
[2019-10-03] MEDS: PANTOPRAZOLE 40 MG TABLET.DR. PO SCH (07:26)
[2019-10-03] MEDS: HYDROcodone/APAP 5/325MG 1 TAB TABLET PO PRN ×2 (07:26→16:36)
[2019-10-03] MEDS: LACTOBACILLUS RHAMNOSUS GG 1 CAPSULE. PO SCH ×2 (08:35→21:22)
[2019-10-03] MEDS: FLUTICASONE 50MCG/NASAL SPRAY 16GM BOTTLE. NS SCH (08:36)
[2019-10-03] MEDS: LOSARTAN POTASSIUM 25 MG TABLET. PO SCH (08:36)
[2019-10-03] MEDS: hydrOXYzine 25 MG TABLET PO PRN ×2 (08:41→18:02)
[2019-10-03 10:23] VITALS: BP 129/55
--- NOTE | 2019-10-03 12:58 | PDOC ---
PROGRESS NOTES Chief Complaint Chief Complaint LATE ENTRY, seen 10/02 ACUTE Cholecystitis. severe noted on surg note, DIABETES 2 overweight, BMI 29 weakness, and nausea and pain History of Present Illness History of Present Illness s/p surg on 09/30 pain, nausea : Laparoscopic cholecystectomy with intraoperative cholangiogram Vitals Vitals Vital Signs Date Time Temp Pulse Resp B/P (MAP) Pulse Ox O2 Delivery O2 Flow Rate FiO2 10/03/19 10:23 98.5 106 17 129/55 (79) 94 Room Air 98.5 Physical Exam Physical Exam ITALS: Within normal limits and are stable. GENERAL: No apparent distress. Alert and oriented. HEENT: Normal cephalic atraumatic, external auditory canals are patent EYES: Extraocular muscles are intact, pupils are equally round and reactive to light and accommodation MUSCULOSKELETAL: Well developed, well nourished, good range of motion ENDOCRINE: No thyromegaly was palpated LYMPHATICS: No cervical chain or axillary nodes were noted HEMATOPOIETIC: No bruising NECK: Supple, no JVD, no thyromegaly was noted. LUNGS: Clear to auscultation in all lung del real without rhonchi or wheezing. HEART: RRR, S1, S2 present. Peripheral pulses intact, no obvious murmurs were noted. ABDOMEN: She has decreased bowel sounds and it is tender to touch. EXTREMITIES: Without any cyanosis, clubbing, or edema. Pedal pulses intact, Homans sign is negative. NEUROLOGIC: Normal speech, normal tone. A & O x3, moves all extremities, no obvious focal deficits. PSYCHIATRIC: Normal affect, normal mood. Stable. SKIN: No ulcerations or rashes, good skin turgor, no jaundice. VASCULAR: Good capillary refill, neurovascular bundle appears to be intact. General: Alert, Oriented X3, Cooperative Heart: Regular rate, Normal S1 Lungs: Clear Abdomen: Soft, Other (lap dressings dry, drain serosang) Extremities: No clubbing, No cyanosis Skin: No rashes Labs LABS Laboratory Tests Test 10/02/19 16:47 10/02/19 20:41 10/03/19 06:56 10/03/19 11:22 Glucose (Fingerstick) 148 mg/dL (70-99) 154 mg/dL (70-99) 143 mg/dL (70-99) 187 mg/dL (70-99) Assessment and Plan Assessmemt and Plan Problems Medical Problems: (1) Acute cholecystitis Status: Acute (2) Hyperglycemia Status: Acute Comment Review of Relevant I have reviewed the following items coleman (where applicable) has been applied. Labs Laboratory Tests Test 10/01/19 13:43 10/01/19 16:55 10/01/19 20:25 10/02/19 05:23 Glucose (Fingerstick) 178 mg/dL (70-99) 145 mg/dL (70-99) 195 mg/dL (70-99) White Blood Count 10.1 x10^3/uL (4.0-11.0) Red Blood Count 3.67 x10^6/uL (3.50-5.40) Hemoglobin 9.9 g/dL (12.0-15.5) Hematocrit 29.1 % (36.0-47.0) Mean Corpuscular Volume 79 fL (79-100) Mean Corpuscular Hemoglobin 27 pg (25-35) Mean Corpuscular Hemoglobin Concent 34 g/dL (31-37) Red Cell Distribution Width 14.2 % (11.5-14.5) Platelet Count 255 x10^3/uL (140-400) Neutrophils (%) (Auto) 83 % (31-73) Lymphocytes (%) (Auto) 7 % (24-48) Monocytes (%) (Auto) 10 % (0-9) Eosinophils (%) (Auto) 0 % (0-3) Basophils (%) (Auto) 0 % (0-3) Neutrophils # (Auto) 8.4 x10^3/uL (1.8-7.7) Lymphocytes # (Auto) 0.7 x10^3/uL (1.0-4.8) Monocytes # (Auto) 1.0 x10^3/uL (0.0-1.1) Eosinophils # (Auto) 0.0 x10^3/uL (0.0-0.7) Basophils # (Auto) 0.0 x10^3/uL (0.0-0.2) Sodium Level 138 mmol/L (136-145) Potassium Level 3.7 mmol/L (3.5-5.1) Chloride Level 105 mmol/L (98-107) Carbon Dioxide Level 24 mmol/L (21-32) Anion Gap 9 (6-14) Blood Urea Nitrogen 9 mg/dL (7-20) Creatinine 0.9 mg/dL (0.6-1.0) Estimated GFR (Cockcroft-Gault) 76.0 BUN/Creatinine Ratio 10 (6-20) Glucose Level 180 mg/dL (70-99) Calcium Level 8.4 mg/dL (8.5-10.1) Total Bilirubin 0.2 mg/dL (0.2-1.0) Aspartate Amino Transf (AST/SGOT) 43 U/L (15-37) Alanine Aminotransferase (ALT/SGPT) 59 U/L (14-59) Alkaline Phosphatase 88 U/L (46-116) Total Protein 6.5 g/dL (6.4-8.2) Albumin 2.3 g/dL (3.4-5.0) Albumin/Globulin Ratio 0.5 (1.0-1.7) Test 10/02/19 07:11 10/02/19 10:42 10/02/19 16:47 10/02/19 20:41 Glucose (Fingerstick) 160 mg/dL (70-99) 184 mg/dL (70-99) 148 mg/dL (70-99) 154 mg/dL (70-99) Test 10/03/19 06:56 10/03/19 11:22 Glucose (Fingerstick) 143 mg/dL (70-99) 187 mg/dL (70-99) Laboratory Tests Test 10/02/19 16:47 10/02/19 20:41 10/03/19 06:56 10/03/19 11:22 Glucose (Fingerstick) 148 mg/dL (70-99) 154 mg/dL (70-99) 143 mg/dL (70-99) 187 mg/dL (70-99) Microbiology 10/01/19 Blood Culture - Preliminary, Resulted NO GROWTH AFTER 2 DAYS Medications Current Medications Sodium Chloride 1,000 ml @ 1,000 mls/hr 1X ONCE IV Last administered on 09/29/19at 17:59; Start 09/29/19 at 17:45; Stop 09/29/19 at 18:44; Status DC Famotidine (Pepcid Vial) 20 mg 1X ONCE IVP Last administered on 09/29/19at 18:01; Start 09/29/19 at 17:45; Stop 09/29/19 at 17:46; Status DC Fentanyl Citrate (Fentanyl 2ml Vial) 50 mcg 1X ONCE IVP Last administered on 09/29/19at 18:02; Start 09/29/19 at 17:45; Stop 09/29/19 at 17:46; Status DC Iohexol (Omnipaque 300 Mg/ml) 75 ml 1X ONCE IV Last administered on 09/29/19at 19:26; Start 09/29/19 at 19:00; Stop 09/29/19 at 19:01; Status DC Info (CONTRAST GIVEN -- Rx MONITORING) 1 each PRN DAILY PRN MC SEE COMMENTS; Start 09/29/19 at 19:00; Stop 10/01/19 at 18:59; Status DC Magnesium Sulfate/ Dextrose 100 ml @ 100 mls/hr 1X ONCE IV Last administered on 09/29/19at 19:43; Start 09/29/19 at 19:30; Stop 09/29/19 at 20:29; Status DC Fentanyl Citrate (Fentanyl 2ml Vial) 50 mcg 1X ONCE IVP Last administered on 09/29/19at 19:50; Start 09/29/19 at 19:45; Stop 09/29/19 at 19:46; Status DC Levofloxacin/ Dextrose 100 ml @ 100 mls/hr 1X ONCE IV Last administered on 09/29/19at 21:30; Start 09/29/19 at 21:30; Stop 09/29/19 at 22:29; Status DC Ondansetron HCl (Zofran) 4 mg PRN Q8HRS PRN IV NAUSEA/VOMITING; Start 09/29/19 at 21:15; Stop 09/30/19 at 21:14; Status DC Fentanyl Citrate (Fentanyl 2ml Vial) 50 mcg PRN Q1HR PRN IV SEVERE PAIN 7-10 Last administered on 09/30/19at 20:09; Start 09/29/19 at 21:15; Stop 09/30/19 at 21:14; Status DC Sodium Chloride 1,000 ml @ 125 mls/hr 1X ONCE IV Last administered on 09/29/19at 21:30; Start 09/29/19 at 21:30; Stop 09/30/19 at 05:29; Status DC Labetalol HCl (Normodyne Iv Push) 10 mg PRN Q6HRS PRN IVP HYPERTENSION, 2ND CHOICE Last administered on 09/30/19 08:22; Start 09/29/19 at 21:15 Labetalol HCl (Normodyne Iv Push) 10 mg 1X ONCE IVP Last administered on 09/29/19 21:29; Start 09/29/19 at 21:30; Stop 09/29/19 at 21:31; Status DC Levofloxacin/ Dextrose 100 ml @ 100 mls/hr Q24H IV Last administered on 10/02/19at 21:04; Start 09/30/19 at 21:00 Metronidazole 100 ml @ 100 mls/hr Q12HR IV Last administered on 10/03/19at 08 :37; Start 09/30/19 at 09:00 Fentanyl Citrate (Fentanyl 2ml Vial) 25 mcg PRN Q5MIN PRN IV MILD PAIN 1-3 Last administered on 10/01/19 13:24; Start 10/01/19 at 07:00; Stop 10/01/19 at 14:59; Status DC Fentanyl Citrate (Fentanyl 2ml Vial) 50 mcg PRN Q5MIN PRN IV MODERATE TO SEVERE PAIN Last administered on 10/01/19at 13:44; Start 10/01/19 at 07:00; Stop 10/01/19 at 14:59; Status DC Ringer's Solution 1,000 ml @ 30 mls/hr Q24H IV ; Start 10/01/19 at 07:00; Stop 10/01/19 at 14:59; Status DC Prochlorperazine Edisylate (Compazine) 5 mg PACU PRN PRN IV NAUSEA, MRX1 Last administered on 10/01/19at 13:23; Start 10/01/19 at 07:00; Stop 10/01/19 at 14:59; Status DC Insulin Human Lispro (HumaLOG VIAL for OP,RR ONLY) 0-10 units PRN Q1HR PRN SQ PER PROTOCOL Last administered on 10/01/19at 13:47; Start 09/30/19 at 09:30; Stop 10/01/19 at 14:59; Status DC Hydralazine HCl (Apresoline Inj) 10 mg PRN Q4HRS PRN IVP ELEVATED BP, 1ST CHOICE Last administered on 09/30/19at 15:48; Start 09/30/19 at 12:45 Sodium Chloride (Normal Saline Flush) 3 ml QSHIFT PRN IV AFTER MEDS AND BLOOD DRAWS; Start 09/30/19 at 13:30 Sodium Chloride 1,000 ml @ 65 mls/hr [id number] IV Last administered on 10/02/19 23:47; Start 09/30/19 at 13:18 Acetaminophen (Tylenol Supp) 650 mg PRN Q4HRS PRN SD TEMP OVER 100.4F OR MILD PAIN; Start 09/30/19 at 13:30 Clonidine HCl (Catapres) 0.1 mg PRN Q6HRS PRN PO SBP>160 OR DBP>90; Start 09/30/19 at 13:30 Sodium Monofluorophosphate (Fleet Adult) 133 ml PRN DAILY PRN SD CONSTIPATION; Start 09/30/19 at 13:30 Docusate Sodium (Colace) 100 mg PRN BID PRN PO HARD STOOLS; Start 09/30/19 at 13:30 Albuterol Sulfate (Ventolin Neb Soln) 2.5 mg PRN Q4HRS PRN NEB SHORTNESS OF BREATH Last administered on 10/02/19 18:06; Start 09/30/19 at 13:30 Guaifenesin (Robitussin) 200 mg PRN Q4HRS PRN PO COUGH; Start 09/30/19 at 13:30 Enoxaparin Sodium (Lovenox 40mg Syringe) 40 mg Q24H SQ Last administered on 10/02/19 21:08; Start 09/30/19 at 14:00 Losartan Potassium (Cozaar) 25 mg DAILY PO Last administered on 10/03/19 08:36; Start 09/30/19 at 14:00 Simvastatin (Zocor) 10 mg HS PO Last administered on 10/02/19 21:05; Start 09/30/19 at 21:00 Hydroxyzine HCl (Atarax) 25 mg PRN QID PRN PO ITCHING Last administered on 10/03/19 08:41; Start 09/30/19 at 14:00 Non-Formulary Medication (Iloperidone (Fanapt)) 1 tab HS PO Last administered on 10/02/19 21:00; Start 09/30/19 at 21:00 Pantoprazole Sodium (Protonix) 40 mg DAILYAC PO Last administered on 6/9/20at 07:26; Start 09/30/19 at 16:30 Acetaminophen (Tylenol) 650 mg PRN Q4HRS PRN PO MILD PAIN 1-3 Last administered on 10/02/19at 14:41; Start 09/30/19 at 16:15 Propofol (Diprivan) 200 mg STK-MED ONCE IV ; Start 10/01/19 at 08:34; Stop 10/01/19 at 08:35; Status DC Lidocaine HCl (Lidocaine Pf 2% Vial) 5 ml STK-MED ONCE .ROUTE ; Start 10/01/19 at 08:34; Stop 10/01/19 at 08:35; Status DC Dexamethasone Sodium Phosphate (Decadron) 4 mg STK-MED ONCE .ROUTE ; Start 10/01/19 at 08:34; Stop 10/01/19 at 08:35; Status DC Ondansetron HCl (Zofran) 4 mg STK-MED ONCE .ROUTE ; Start 10/01/19 at 08:34; Stop 10/01/19 at 08:35; Status DC Ephedrine Sulfate (ePHEDrine PF IN SALINE SYRINGE) 50 mg STK-MED ONCE IV ; Start 10/01/19 at 08:35; Stop 10/01/19 at 08:36; Status DC Glycopyrrolate (Robinul) 1 mg STK-MED ONCE .ROUTE ; Start 10/01/19 at 08:35; Stop 10/01/19 at 08:36; Status DC Neostigmine [place] (Neostigmine Methylsulfate) 5 mg STK-MED ONCE .ROUTE ; Start 10/01/19 at 08:38; Stop 10/01/19 at 08:39; Status DC Rocuronium [place] (Zemuron) 50 mg STK-MED ONCE .ROUTE ; Start 10/01/19 at 08:38; Stop 10/01/19 at 08:39; Status DC Succinylcholine Chloride (Anectine) 200 mg STK-MED ONCE .ROUTE ; Start 10/01/19 at 08:39; Stop 10/01/19 at 08:39; Status DC Fentanyl Citrate (Fentanyl 2ml Vial) 100 mcg STK-MED ONCE .ROUTE ; Start 10/01/19 at 08:40; Stop 10/01/19 at 08:40; Status DC Iohexol (Omnipaque 300 Mg/ml) 50 ml STK-MED ONCE .ROUTE Last administered on 10/01/19at 12:00; Start 10/01/19 at 10:24; Stop 10/01/19 at 10:24; Status DC Cellulose (Surgicel Hemostat 4x8) 1 each STK-MED ONCE .ROUTE Last administered on 10/01/19at 12:14; Start 10/01/19 at 10:24; Stop 10/01/19 at 10:24; Status DC Bupivacaine HCl (Sensorcaine Mpf 0.5%) 30 ml STK-MED ONCE .ROUTE Last administered on 10/01/19at 11:21; Start 10/01/19 at 10:24; Stop 10/01/19 at 10:25; Status DC Vasopressin (Vasostrict) 20 unit STK-MED ONCE .ROUTE ; Start 10/01/19 at 11:13; Stop 10/01/19 at 11:13; Status DC Sevoflurane (Ultane) 60 ml STK-MED ONCE IH ; Start 10/01/19 at 12:02; Stop 10/01/19 at 12:02; Status DC Neostigmine [place] (Neostigmine Methylsulfate) 5 mg STK-MED ONCE .ROUTE ; Start 10/01/19 at 12:02; Stop 10/01/19 at 12:02; Status DC Glycopyrrolate (Robinul) 1 mg STK-MED ONCE .ROUTE ; Start 10/01/19 at 12:03; Stop 10/01/19 at 12:03; Status DC Acetaminophen/ Hydrocodone Bitart (Lortab 5/325) 1 tab PRN Q4HRS PRN PO MODERATE PAIN Last administered on 10/03/19at 07:26; Start 10/01/19 at 13:15 Fentanyl Citrate (Fentanyl 2ml Vial) 100 mcg STK-MED ONCE .ROUTE ; Start 10/01/19 at 13:07; Stop 10/01/19 at 13:07; Status DC Acetaminophen/ Hydrocodone Bitart (Lortab 5/325) 2 tab PRN Q4HRS PRN PO SEVERE PAIN Last administered on 10/02/19at 16:22; Start 10/01/19 at 13:15 Fentanyl Citrate (Fentanyl 2ml Vial) 100 mcg STK-MED ONCE .ROUTE ; Start 10/01/19 at 13:31; Stop 10/01/19 at 13:31; Status DC Ondansetron HCl (Zofran) 4 mg PRN Q8HRS PRN IVP NAUSEA/VOMITING Last administered on 10/02/19at 09:30; Start 10/02/19 at 09:30 Lactobacillus Rhamnosus (Culturelle) 1 cap BID PO Last administered on 10/03/19at 08:35; Start 10/02/19 at 21:00 Fentanyl Citrate (Fentanyl 2ml Vial) 50 mcg PRN Q2HR PRN IVP PAIN Last administered on 10/03/19at 08:40; Start 10/02/19 at 14:15 Fluticasone Propionate (Flonase) 2 spray DAILY NS Last administered on 10/03/19at 08:36; Start 10/02/19 at 16:30 Active Scripts Active Reported Hydroxyzine Pamoate 25 Mg Capsule 25 Mg PO QIDPRN PRN Omeprazole 40 Mg Capsule. 1 Cap PO DAILY Fanapt (Iloperidone) 6 Mg Tablet 1 Tab PO HS 30 Days Losartan Potassium (Losartan Potassium) 25 Mg Tablet 25 Mg PO DAILY Simvastatin 10 Mg Tablet 10 Mg PO HS Metformin Hcl 500 Mg Tablet 500 Mg PO BIDWMEALS Vitals/I & O Vital Sign - Last 24 Hours 10/02/19 10/02/19 10/02/19 10/02/19 13:28 15:00 16:22 17:43 Temp 97.9 97.9 Pulse 85 Resp 18 B/P (MAP) 128/63 (84) Pulse Ox 95 O2 Delivery Room Air Room Air Room Air Room Air 10/02/19 10/02/19 10/02/19 10/02/19 18:06 19:00 19:40 23:00 Temp 98.0 98.3 98.0 98.3 Pulse 94 77 Resp 18 18 B/P (MAP) 121/56 (77) 151/74 (99) Pulse Ox 95 96 93 O2 Delivery Room Air Room Air Room Air Room Air 10/03/19 10/03/19 10/03/19 10/03/19 03:00 06:50 07:20 07:26 Temp 98.3 98.7 98.3 98.7 Pulse 72 100 Resp 18 16 B/P (MAP) 153/61 (91) 143/65 (91) Pulse Ox 94 96 O2 Delivery Room Air Room Air Room Air Room Air 10/03/19 10/03/19 10/03/19 10/03/19 07:34 08:36 08:40 08:42 Pulse 100 B/P (MAP) 143/65 Pulse Ox 96 O2 Delivery Room Air Room Air Room Air 10/03/19 10/03/19 09:41 10:23 Temp 98.5 98.5 Pulse 106 Resp 17 B/P (MAP) 129/55 (79) Pulse Ox 94 O2 Delivery Room Air Room Air Intake and Output 10/02/19 10/02/19 10/03/19 15:00 23:00 07:00 Intake Total 240 ml 180 ml 1800 ml Balance 240 ml 180 ml 1800 ml ROCIO SAWYER MD Oct 03, 2019 12:57
[2019-10-03] MEDS ORDERED: POLYETHYLENE GLYCOL 3350 17 GM PACKET. PO ONE (13:00)
[2019-10-03] MEDS ORDERED: oxyCODONE IR 5 MG TABLET PO ONE (13:00)
--- NOTE | 2019-10-03 13:03 | PDOC ---
PROGRESS NOTES Chief Complaint Chief Complaint acute abd pain, ACUTE Cholecystitis. severe noted on surg note, DIABETES 2 overweight, BMI 29 weakness, and nausea and pain History of Present Illness History of Present Illness still having pain, try to DC s/p surg on 09/30 pain, nausea : Laparoscopic cholecystectomy with intraoperative cholangiogram Vitals Vitals Vital Signs Date Time Temp Pulse Resp B/P (MAP) Pulse Ox O2 Delivery O2 Flow Rate FiO2 10/03/19 10:23 98.5 106 17 129/55 (79) 94 Room Air 98.5 Physical Exam Physical Exam ITALS: Within normal limits and are stable. GENERAL: No apparent distress. Alert and oriented. HEENT: Normal cephalic atraumatic, external auditory canals are patent EYES: Extraocular muscles are intact, pupils are equally round and reactive to light and accommodation MUSCULOSKELETAL: Well developed, well nourished, good range of motion ENDOCRINE: No thyromegaly was palpated LYMPHATICS: No cervical chain or axillary nodes were noted HEMATOPOIETIC: No bruising NECK: Supple, no JVD, no thyromegaly was noted. LUNGS: Clear to auscultation in all lung del real without rhonchi or wheezing. HEART: RRR, S1, S2 present. Peripheral pulses intact, no obvious murmurs were noted. ABDOMEN: She has decreased bowel sounds and it is tender to touch. EXTREMITIES: Without any cyanosis, clubbing, or edema. Pedal pulses intact, Homans sign is negative. NEUROLOGIC: Normal speech, normal tone. A & O x3, moves all extremities, no obvious focal deficits. PSYCHIATRIC: Normal affect, normal mood. Stable. SKIN: No ulcerations or rashes, good skin turgor, no jaundice. VASCULAR: Good capillary refill, neurovascular bundle appears to be intact. General: Alert, Oriented X3, Cooperative Heart: Regular rate, Normal S1 Lungs: Clear Abdomen: Soft, Other (lap dressings dry, drain serosang) Extremities: No clubbing, No cyanosis Skin: No rashes Labs LABS Laboratory Tests Test 10/02/19 16:47 10/02/19 20:41 10/03/19 06:56 10/03/19 11:22 Glucose (Fingerstick) 148 mg/dL (70-99) 154 mg/dL (70-99) 143 mg/dL (70-99) 187 mg/dL (70-99) Assessment and Plan Assessmemt and Plan Problems Medical Problems: (1) Acute cholecystitis Status: Acute (2) Hyperglycemia Status: Acute Comment Review of Relevant I have reviewed the following items coleman (where applicable) has been applied. Labs Laboratory Tests Test 10/01/19 13:43 10/01/19 16:55 10/01/19 20:25 10/02/19 05:23 Glucose (Fingerstick) 178 mg/dL (70-99) 145 mg/dL (70-99) 195 mg/dL (70-99) White Blood Count 10.1 x10^3/uL (4.0-11.0) Red Blood Count 3.67 x10^6/uL (3.50-5.40) Hemoglobin 9.9 g/dL (12.0-15.5) Hematocrit 29.1 % (36.0-47.0) Mean Corpuscular Volume 79 fL (79-100) Mean Corpuscular Hemoglobin 27 pg (25-35) Mean Corpuscular Hemoglobin Concent 34 g/dL (31-37) Red Cell Distribution Width 14.2 % (11.5-14.5) Platelet Count 255 x10^3/uL (140-400) Neutrophils (%) (Auto) 83 % (31-73) Lymphocytes (%) (Auto) 7 % (24-48) Monocytes (%) (Auto) 10 % (0-9) Eosinophils (%) (Auto) 0 % (0-3) Basophils (%) (Auto) 0 % (0-3) Neutrophils # (Auto) 8.4 x10^3/uL (1.8-7.7) Lymphocytes # (Auto) 0.7 x10^3/uL (1.0-4.8) Monocytes # (Auto) 1.0 x10^3/uL (0.0-1.1) Eosinophils # (Auto) 0.0 x10^3/uL (0.0-0.7) Basophils # (Auto) 0.0 x10^3/uL (0.0-0.2) Sodium Level 138 mmol/L (136-145) Potassium Level 3.7 mmol/L (3.5-5.1) Chloride Level 105 mmol/L (98-107) Carbon Dioxide Level 24 mmol/L (21-32) Anion Gap 9 (6-14) Blood Urea Nitrogen 9 mg/dL (7-20) Creatinine 0.9 mg/dL (0.6-1.0) Estimated GFR (Cockcroft-Gault) 76.0 BUN/Creatinine Ratio 10 (6-20) Glucose Level 180 mg/dL (70-99) Calcium Level 8.4 mg/dL (8.5-10.1) Total Bilirubin 0.2 mg/dL (0.2-1.0) Aspartate Amino Transf (AST/SGOT) 43 U/L (15-37) Alanine Aminotransferase (ALT/SGPT) 59 U/L (14-59) Alkaline Phosphatase 88 U/L (46-116) Total Protein 6.5 g/dL (6.4-8.2) Albumin 2.3 g/dL (3.4-5.0) Albumin/Globulin Ratio 0.5 (1.0-1.7) Test 10/02/19 07:11 10/02/19 10:42 10/02/19 16:47 10/02/19 20:41 Glucose (Fingerstick) 160 mg/dL (70-99) 184 mg/dL (70-99) 148 mg/dL (70-99) 154 mg/dL (70-99) Test 10/03/19 06:56 10/03/19 11:22 Glucose (Fingerstick) 143 mg/dL (70-99) 187 mg/dL (70-99) Laboratory Tests Test 10/02/19 16:47 10/02/19 20:41 10/03/19 06:56 10/03/19 11:22 Glucose (Fingerstick) 148 mg/dL (70-99) 154 mg/dL (70-99) 143 mg/dL (70-99) 187 mg/dL (70-99) Microbiology 10/01/19 Blood Culture - Preliminary, Resulted NO GROWTH AFTER 2 DAYS Medications Current Medications Sodium Chloride 1,000 ml @ 1,000 mls/hr 1X ONCE IV Last administered on 09/29/19at 17:59; Start 09/29/19 at 17:45; Stop 09/29/19 at 18:44; Status DC Famotidine (Pepcid Vial) 20 mg 1X ONCE IVP Last administered on 09/29/19at 18:01; Start 09/29/19 at 17:45; Stop 09/29/19 at 17:46; Status DC Fentanyl Citrate (Fentanyl 2ml Vial) 50 mcg 1X ONCE IVP Last administered on 09/29/19at 18:02; Start 09/29/19 at 17:45; Stop 09/29/19 at 17:46; Status DC Iohexol (Omnipaque 300 Mg/ml) 75 ml 1X ONCE IV Last administered on 09/29/19at 19:26; Start 09/29/19 at 19:00; Stop 09/29/19 at 19:01; Status DC Info (CONTRAST GIVEN -- Rx MONITORING) 1 each PRN DAILY PRN MC SEE COMMENTS; Start 09/29/19 at 19:00; Stop 10/01/19 at 18:59; Status DC Magnesium Sulfate/ Dextrose 100 ml @ 100 mls/hr 1X ONCE IV Last administered on 09/29/19at 19:43; Start 09/29/19 at 19:30; Stop 09/29/19 at 20:29; Status DC Fentanyl Citrate (Fentanyl 2ml Vial) 50 mcg 1X ONCE IVP Last administered on 09/29/19at 19:50; Start 09/29/19 at 19:45; Stop 09/29/19 at 19:46; Status DC Levofloxacin/ Dextrose 100 ml @ 100 mls/hr 1X ONCE IV Last administered on 09/29/19at 21:30; Start 09/29/19 at 21:30; Stop 09/29/19 at 22:29; Status DC Ondansetron HCl (Zofran) 4 mg PRN Q8HRS PRN IV NAUSEA/VOMITING; Start 09/29/19 at 21:15; Stop 09/30/19 at 21:14; Status DC Fentanyl Citrate (Fentanyl 2ml Vial) 50 mcg PRN Q1HR PRN IV SEVERE PAIN 7-10 Last administered on 09/30/19at 20:09; Start 09/29/19 at 21:15; Stop 09/30/19 at 21:14; Status DC Sodium Chloride 1,000 ml @ 125 mls/hr 1X ONCE IV Last administered on 09/29/19at 21:30; Start 09/29/19 at 21:30; Stop 09/30/19 at 05:29; Status DC Labetalol HCl (Normodyne Iv Push) 10 mg PRN Q6HRS PRN IVP HYPERTENSION, 2ND CHOICE Last administered on 09/30/19 08:22; Start 09/29/19 at 21:15 Labetalol HCl (Normodyne Iv Push) 10 mg 1X ONCE IVP Last administered on 09/29/19at 21:29; Start 09/29/19 at 21:30; Stop 09/29/19 at 21:31; Status DC Levofloxacin/ Dextrose 100 ml @ 100 mls/hr Q24H IV Last administered on 10/02/19at 21:04; Start 09/30/19 at 21:00 Metronidazole 100 ml @ 100 mls/hr Q12HR IV Last administered on 10/03/19at 08:37; Start 09/30/19 at 09:00 Fentanyl Citrate (Fentanyl 2ml Vial) 25 mcg PRN Q5MIN PRN IV MILD PAIN 1-3 Last administered on 10/01/19 13:24; Start 10/01/19 at 07:00; Stop 10/01/19 at 14:59; Status DC Fentanyl Citrate (Fentanyl 2ml Vial) 50 mcg PRN Q5MIN PRN IV MODERATE TO SEVERE PAIN Last administered on 10/01/19at 13:44; Start 10/01/19 at 07:00; Stop 10/01/19 at 14:59; Status DC Ringer's Solution 1,000 ml @ 30 mls/hr Q24H IV ; Start 10/01/19 at 07:00; Stop 10/01/19 at 14:59; Status DC Prochlorperazine Edisylate (Compazine) 5 mg PACU PRN PRN IV NAUSEA, MRX1 Last administered on 10/01/19at 13:23; Start 10/01/19 at 07:00; Stop 10/01/19 at 14:59; Status DC Insulin Human Lispro (HumaLOG VIAL for OP,RR ONLY) 0-10 units PRN Q1HR PRN SQ PER PROTOCOL Last administered on 10/01/19 13:47; Start 09/30/19 at 09:30; Stop 10/01/19 at 14:59; Status DC Hydralazine HCl (Apresoline Inj) 10 mg PRN Q4HRS PRN IVP ELEVATED BP, 1ST CHOICE Last administered on 09/30/19at 15:48; Start 09/30/19 at 12:45 Sodium Chloride (Normal Saline Flush) 3 ml QSHIFT PRN IV AFTER MEDS AND BLOOD DRAWS; Start 09/30/19 at 13:30 Sodium Chloride 1,000 ml @ 65 mls/hr [id number] IV Last administered on 10/02/19 23:47; Start 09/30/19 at 13:18 Acetaminophen (Tylenol Supp) 650 mg PRN Q4HRS PRN W[place] TEMP OVER 100.4F OR MILD PAIN; Start 09/30/19 at 13:30 Clonidine HCl (Catapres) 0.1 mg PRN Q6HRS PRN PO SBP>160 OR DBP>90; Start 09/30/19 at 13:30 Sodium Monofluorophosphate (Fleet Adult) 133 ml PRN DAILY PRN [place] CONSTIPATION; Start 09/30/19 at 13:30 Docusate Sodium (Colace) 100 mg PRN BID PRN PO HARD STOOLS; Start 09/30/19 at 13:30 Albuterol Sulfate (Ventolin Neb Soln) 2.5 mg PRN Q4HRS PRN NEB SHORTNESS OF BREATH Last administered on 10/02/19 18:06; Start 09/30/19 at 13:30 Guaifenesin (Robitussin) 200 mg PRN Q4HRS PRN PO COUGH; Start 09/30/19 at 13:30 Enoxaparin Sodium (Lovenox 40mg Syringe) 40 mg Q24H SQ Last administered on 21:08; Start 09/30/19 at 14:00 Losartan Potassium (Cozaar) 25 mg DAILY PO Last administered on 10/03/19 08:36; Start 09/30/19 at 14:00 Simvastatin (Zocor) 10 mg HS PO Last administered on 10/02/19 21:05; Start 09/30/19 at 21:00 Hydroxyzine HCl (Atarax) 25 mg PRN QID PRN PO ITCHING Last administered on 10/03/19 08:41; Start 09/30/19 at 14:00 Non-Formulary Medication (Iloperidone (Fanapt)) 1 tab HS PO Last administered on 10/02/19 21:00; Start 09/30/19 at 21:00 Pantoprazole Sodium (Protonix) 40 mg DAILYAC PO Last administered on 6/9/20at 07:26; Start 09/30/19 at 16:30 Acetaminophen (Tylenol) 650 mg PRN Q4HRS PRN PO MILD PAIN 1-3 Last administered on 10/02/19at 14:41; Start 09/30/19 at 16:15 Propofol (Diprivan) 200 mg STK-MED ONCE IV ; Start 10/01/19 at 08:34; Stop 10/01/19 at 08:35; Status DC Lidocaine HCl (Lidocaine Pf 2% Vial) 5 ml STK-MED ONCE .ROUTE ; Start 10/01/19 at 08:34; Stop 10/01/19 at 08:35; Status DC Dexamethasone Sodium Phosphate (Decadron) 4 mg STK-MED ONCE .ROUTE ; Start 10/01/19 at 08:34; Stop 10/01/19 at 08:35; Status DC Ondansetron HCl (Zofran) 4 mg STK-MED ONCE .ROUTE ; Start 10/01/19 at 08:34; Stop 10/01/19 at 08:35; Status DC Ephedrine Sulfate (ePHEDrine PF IN SALINE SYRINGE) 50 mg STK-MED ONCE IV ; Start 10/01/19 at 08:35; Stop 10/01/19 at 08:36; Status DC Glycopyrrolate (Robinul) 1 mg STK-MED ONCE .ROUTE ; Start 10/01/19 at 08:35; Stop 10/01/19 at 08:36; Status DC Neostigmine [place] (Neostigmine Methylsulfate) 5 mg STK-MED ONCE .ROUTE ; Start 10/01/19 at 08:38; Stop 10/01/19 at 08:39; Status DC Rocuronium [place] (Zemuron) 50 mg STK-MED ONCE .ROUTE ; Start 10/01/19 at 08:38; Stop 10/01/19 at 08:39; Status DC Succinylcholine Chloride (Anectine) 200 mg STK-MED ONCE .ROUTE ; Start 10/01/19 at 08:39; Stop 10/01/19 at 08:39; Status DC Fentanyl Citrate (Fentanyl 2ml Vial) 100 mcg STK-MED ONCE .ROUTE ; Start 10/01/19 at 08:40; Stop 10/01/19 at 08:40; Status DC Iohexol (Omnipaque 300 Mg/ml) 50 ml STK-MED ONCE .ROUTE Last administered on 10/01/19at 12:00; Start 10/01/19 at 10:24; Stop 10/01/19 at 10:24; Status DC Cellulose (Surgicel Hemostat 4x8) 1 each STK-MED ONCE .ROUTE Last administered on 10/01/19at 12:14; Start 10/01/19 at 10:24; Stop 10/01/19 at 10:24; Status DC Bupivacaine HCl (Sensorcaine Mpf 0.5%) 30 ml STK-MED ONCE .ROUTE Last administered on 10/01/19at 11:21; Start 10/01/19 at 10:24; Stop 10/01/19 at 10:25; Status DC Vasopressin (Vasostrict) 20 unit STK-MED ONCE .ROUTE ; Start 10/01/19 at 11:13; Stop 10/01/19 at 11:13; Status DC Sevoflurane (Ultane) 60 ml STK-MED ONCE IH ; Start 10/01/19 at 12:02; Stop 10/01/19 at 12:02; Status DC Neostigmine [place] (Neostigmine Methylsulfate) 5 mg STK-MED ONCE .ROUTE ; Start 10/01/19 at 12:02; Stop 10/01/19 at 12:02; Status DC Glycopyrrolate (Robinul) 1 mg STK-MED ONCE .ROUTE ; Start 10/01/19 at 12:03; Stop 10/01/19 at 12:03; Status DC Acetaminophen/ Hydrocodone Bitart (Lortab 5/325) 1 tab PRN Q4HRS PRN PO MODERATE PAIN Last administered on 10/03/19at 07:26; Start 10/01/19 at 13:15 Fentanyl Citrate (Fentanyl 2ml Vial) 100 mcg STK-MED ONCE .ROUTE ; Start 10/01/19 at 13:07; Stop 10/01/19 at 13:07; Status DC Acetaminophen/ Hydrocodone Bitart (Lortab 5/325) 2 tab PRN Q4HRS PRN PO SEVERE PAIN Last administered on 10/02/19at 16:22; Start 10/01/19 at 13:15 Fentanyl Citrate (Fentanyl 2ml Vial) 100 mcg STK-MED ONCE .ROUTE ; Start 10/01/19 at 13:31; Stop 10/01/19 at 13:31; Status DC Ondansetron HCl (Zofran) 4 mg PRN Q8HRS PRN IVP NAUSEA/VOMITING Last administered on 10/02/19at 09:30; Start 10/02/19 at 09:30 Lactobacillus Rhamnosus (Culturelle) 1 cap BID PO Last administered on 10/03/19at 08:35; Start 10/02/19 at 21:00 Fentanyl Citrate (Fentanyl 2ml Vial) 50 mcg PRN Q2HR PRN IVP PAIN Last administered on 10/03/19at 08:40; Start 10/02/19 at 14:15 Fluticasone Propionate (Flonase) 2 spray DAILY NS Last administered on 10/03/19at 08:36; Start 10/02/19 at 16:30 Metformin HCl (Glucophage) 500 mg BIDWMEALS PO ; Start 10/03/19 at 17:00 Docusate Sodium (Colace) 100 mg DAILY PO ; Start 10/04/19 at 09:00 Polyethylene Glycol (miraLAX PACKET) 17 gm 1X ONCE PO ; Start 10/03/19 at 13:00; Stop 10/03/19 at 13:01; Status DC Polyethylene Glycol (miraLAX PACKET) 17 gm DAILY PO ; Start 10/04/19 at 09:00 Oxycodone HCl (Roxicodone) 10 mg 1X ONCE PO ; Start 10/03/19 at 13:00; Stop 10/03/19 at 13:01; Status DC Active Scripts Active Reported Hydroxyzine Pamoate 25 Mg Capsule 25 Mg PO QIDPRN PRN Omeprazole 40 Mg Capsule.dr 1 Cap PO DAILY Fanapt (Iloperidone) 6 Mg Tablet 1 Tab PO HS 30 Days Losartan Potassium (Losartan Potassium) 25 Mg Tablet 25 Mg PO DAILY Simvastatin 10 Mg Tablet 10 Mg PO HS Metformin Hcl 500 Mg Tablet 500 Mg PO BIDWMEALS Vitals/I & O Vital Sign - Last 24 Hours 10/02/19 10/02/19 10/02/19 10/02/19 13:28 15:00 16:22 17:43 Temp 97.9 97.9 Pulse 85 Resp 18 B/P (MAP) 128/63 (84) Pulse Ox 95 O2 Delivery Room Air Room Air Room Air Room Air 10/02/19 10/02/19 10/02/19 10/02/19 18:06 19:00 19:40 23:00 Temp 98.0 98.3 98.0 98.3 Pulse 94 77 Resp 18 18 B/P (MAP) 121/56 (77) 151/74 (99) Pulse Ox 95 96 93 O2 Delivery Room Air Room Air Room Air Room Air 10/03/19 10/03/19 10/03/19 10/03/19 03:00 06:50 07:20 07:26 Temp 98.3 98.7 98.3 98.7 Pulse 72 100 Resp 18 16 B/P (MAP) 153/61 (91) 143/65 (91) Pulse Ox 94 96 O2 Delivery Room Air Room Air Room Air Room Air 10/03/19 10/03/19 10/03/19 10/03/19 07:34 08:36 08:40 08:42 Pulse 100 B/P (MAP) 143/65 Pulse Ox 96 O2 Delivery Room Air Room Air Room Air 10/03/19 10/03/19 09:41 10:23 Temp 98.5 98.5 Pulse 106 Resp 17 B/P (MAP) 129/55 (79) Pulse Ox 94 O2 Delivery Room Air Room Air Intake and Output 10/02/19 10/02/19 10/03/19 15:00 23:00 07:00 Intake Total 240 ml 180 ml 1800 ml Balance 240 ml 180 ml 1800 ml ROCIO SAWYER MD Oct 03, 2019 13:03
[2019-10-03 14:44] VITALS: BP 128/62
--- NOTE | 2019-10-03 15:07 | PATHOLOGY ---
[facility] Accession Number: [id number] . 01 Material submitted: . gallbladder - GALLBLADDER AND CONTENTS . 01 Clinical history: . Abdominal pain, cholecystitis . 02 Diagnosis: Gallbladder, laparoscopic cholecystectomy: - Cholelithiasis. - Marked acute hemorrhagic and chronic cholecystitis. ([facility] 10/03/2019) [facility] 10/03/2019 0950 Local . 02 Comment: There is no evidence of malignancy. ([facility] 10/03/2019) . 02 Electronically signed: . Deshawn Reyes MD, Pathologist NPI- [id number] . 01 Gross description: . The specimen is received in formalin labeled "Norton, Lauren, gallbladder with contents" and consists of an intact firm pink-rausch gallbladder with white rausch adhesions measuring 8.3 x 4.5 x 1.8 cm. The margin is inked black. Opening reveals a lumen filled with hemorrhagic material and a single black calculus measuring 0.5 cm. The mucosa is necrotic brown-black to white-pink with an average wall thickness of 0.3 cm. No masses are identified. Seasonal Customer Service [employer] sections are submitted in A1-A2. (SD; 10/02/2019) SYU/SYU 10/02/2019 1713 Local . 02 Pathologist provided ICD-10: K80.12 . 02 CPT . 256571 Specimen Comment: A courtesy copy of this report has been sent to [phone], [phone] Specimen Comment: [id number], , Specimen Comment: Report sent to ,DR CHA,DR WILEY / DR VENTURA Performed at: [address], [place], [place] [id number] MD Wilberto Odell MD Phone: [phone] Performed at: [address] [id number] MD Deshawn Reyes MD Phone: [phone]
[2019-10-03] MEDS: ALBUTEROL SULFATE 2.5 MG/3 ML NEBU. NEB PRN (16:32)
[2019-10-03] MEDS: IV NORMAL SALINE 1000ML BAG 1,000 ML IV SCH (16:33)
[2019-10-03] MEDS: metFORMIN 500 MG TABLET PO SCH (16:36)
--- NOTE | 2019-10-03 17:08 | PDOC ---
PROGRESS NOTES Subjective Subjective doing ok Objective Objective Vital Signs Date Time Temp Pulse Resp B/P (MAP) Pulse Ox O2 Delivery O2 Flow Rate FiO2 10/03/19 16:36 Room Air 10/03/19 14:44 99.6 104 16 128/62 (84) 93 99.6 10/01/19 21:59 3.0 Intake and Output 10/03/19 07:00 Intake Total 2220 ml Balance 2220 ml Intake Oral 660 ml IV Total 780 ml Other 780 ml # Voids 5 Physical Exam Physical Exam abdomen soft, BERENICE sanguinous Assessment Assessment Problems Medical Problems: (1) Acute cholecystitis Status: Acute (2) Hyperglycemia Status: Acute Plan Plan of Care Postop care, keep BERENICE intact Comment Review of Relevant I have reviewed the following items coleman (where applicable) has been applied. Labs Laboratory Tests Test 10/01/19 20:25 10/02/19 05:23 10/02/19 07:11 10/02/19 10:42 Glucose (Fingerstick) 195 mg/dL (70-99) 160 mg/dL (70-99) 184 mg/dL (70-99) White Blood Count 10.1 x10^3/uL (4.0-11.0) Red Blood Count 3.67 x10^6/uL (3.50-5.40) Hemoglobin 9.9 g/dL (12.0-15.5) Hematocrit 29.1 % (36.0-47.0) Mean Corpuscular Volume 79 fL (79-100) Mean Corpuscular Hemoglobin 27 pg (25-35) Mean Corpuscular Hemoglobin Concent 34 g/dL (31-37) Red Cell Distribution Width 14.2 % (11.5-14.5) Platelet Count 255 x10^3/uL (140-400) Neutrophils (%) (Auto) 83 % (31-73) Lymphocytes (%) (Auto) 7 % (24-48) Monocytes (%) (Auto) 10 % (0-9) Eosinophils (%) (Auto) 0 % (0-3) Basophils (%) (Auto) 0 % (0-3) Neutrophils # (Auto) 8.4 x10^3/uL (1.8-7.7) Lymphocytes # (Auto) 0.7 x10^3/uL (1.0-4.8) Monocytes # (Auto) 1.0 x10^3/uL (0.0-1.1) Eosinophils # (Auto) 0.0 x10^3/uL (0.0-0.7) Basophils # (Auto) 0.0 x10^3/uL (0.0-0.2) Sodium Level 138 mmol/L (136-145) Potassium Level 3.7 mmol/L (3.5-5.1) Chloride Level 105 mmol/L (98-107) Carbon Dioxide Level 24 mmol/L (21-32) Anion Gap 9 (6-14) Blood Urea Nitrogen 9 mg/dL (7-20) Creatinine 0.9 mg/dL (0.6-1.0) Estimated GFR (Cockcroft-Gault) 76.0 BUN/Creatinine Ratio 10 (6-20) Glucose Level 180 mg/dL (70-99) Calcium Level 8.4 mg/dL (8.5-10.1) Total Bilirubin 0.2 mg/dL (0.2-1.0) Aspartate Amino Transf (AST/SGOT) 43 U/L (15-37) Alanine Aminotransferase (ALT/SGPT) 59 U/L (14-59) Alkaline Phosphatase 88 U/L (46-116) Total Protein 6.5 g/dL (6.4-8.2) Albumin 2.3 g/dL (3.4-5.0) Albumin/Globulin Ratio 0.5 (1.0-1.7) Test 10/02/19 16:47 10/02/19 20:41 10/03/19 06:56 10/03/19 11:22 Glucose (Fingerstick) 148 mg/dL (70-99) 154 mg/dL (70-99) 143 mg/dL (70-99) 187 mg/dL (70-99) Test 10/03/19 16:16 Glucose (Fingerstick) 152 mg/dL (70-99) Laboratory Tests Test 10/02/19 20:41 10/03/19 06:56 10/03/19 11:22 10/03/19 16:16 Glucose (Fingerstick) 154 mg/dL (70-99) 143 mg/dL (70-99) 187 mg/dL (70-99) 152 mg/dL (70-99) Microbiology 10/01/19 Blood Culture - Preliminary, Resulted NO GROWTH AFTER 2 DAYS Medications Current Medications Sodium Chloride 1,000 ml @ 1,000 mls/hr 1X ONCE IV Last administered on 09/29/19at 17:59; Start 09/29/19 at 17:45; Stop 09/29/19 at 18:44; Status DC Famotidine (Pepcid Vial) 20 mg 1X ONCE IVP Last administered on 09/29/19at 18:01; Start 09/29/19 at 17:45; Stop 09/29/19 at 17:46; Status DC Fentanyl Citrate (Fentanyl 2ml Vial) 50 mcg 1X ONCE IVP Last administered on 09/29/19at 18:02; Start 09/29/19 at 17:45; Stop 09/29/19 at 17:46; Status DC Iohexol (Omnipaque 300 Mg/ml) 75 ml 1X ONCE IV Last administered on 09/29/19at 19:26; Start 09/29/19 at 19:00; Stop 09/29/19 at 19:01; Status DC Info (CONTRAST GIVEN -- Rx MONITORING) 1 each PRN DAILY PRN MC SEE COMMENTS; Start 09/29/19 at 19:00; Stop 10/01/19 at 18:59; Status DC Magnesium Sulfate/ Dextrose 100 ml @ 100 mls/hr 1X ONCE IV Last administered on 09/29/19at 19:43; Start 09/29/19 at 19:30; Stop 09/29/19 at 20:29; Status DC Fentanyl Citrate (Fentanyl 2ml Vial) 50 mcg 1X ONCE IVP Last administered on 09/29/19at 19:50; Start 09/29/19 at 19:45; Stop 09/29/19 at 19:46; Status DC Levofloxacin/ Dextrose 100 ml @ 100 mls/hr 1X ONCE IV Last administered on 09/29/19at 21:30; Start 09/29/19 at 21:30; Stop 09/29/19 at 22:29; Status DC Ondansetron HCl (Zofran) 4 mg PRN Q8HRS PRN IV NAUSEA/VOMITING; Start 09/29/19 at 21:15; Stop 09/30/19 at 21:14; Status DC Fentanyl Citrate (Fentanyl 2ml Vial) 50 mcg PRN Q1HR PRN IV SEVERE PAIN 7-10 Last administered on 09/30/19 20:09; Start 09/29/19 at 21:15; Stop 09/30/19 at 21:14; Status DC Sodium Chloride 1,000 ml @ 125 mls/hr 1X ONCE IV Last administered on 09/29/19 21:30; Start 09/29/19 at 21:30; Stop 09/30/19 at 05:29; Status DC Labetalol HCl (Normodyne Iv Push) 10 mg PRN Q6HRS PRN IVP HYPERTENSION, 2ND CHOICE Last administered on 09/30/19 08:22; Start 09/29/19 at 21:15 Labetalol HCl (Normodyne Iv Push) 10 mg 1X ONCE IVP Last administered on 09/29/19 21:29; Start 09/29/19 at 21:30; Stop 09/29/19 at 21:31; Status DC Levofloxacin/ Dextrose 100 ml @ 100 mls/hr Q24H IV Last administered on 10/02/19 21:04; Start 09/30/19 at 21:00 Metronidazole 100 ml @ 100 mls/hr Q12HR IV Last administered on 10/03/19 08:37; Start 09/30/19 at 09:00 Fentanyl Citrate (Fentanyl 2ml Vial) 25 mcg PRN Q5MIN PRN IV MILD PAIN 1-3 Last administered on 10/01/19 13:24; Start 10/01/19 at 07:00; Stop 10/01/19 at 14:59; Status DC Fentanyl Citrate (Fentanyl 2ml Vial) 50 mcg PRN Q5MIN PRN IV MODERATE TO SEVERE PAIN Last administered on 10/01/19 13:44; Start 10/01/19 at 07:00; Stop 10/01/19 at 14:59; Status DC Ringer's Solution 1,000 ml @ 30 mls/hr Q24H IV ; Start 10/01/19 at 07:00; Stop 10/01/19 at 14:59; Status DC Prochlorperazine Edisylate (Compazine) 5 mg PACU PRN PRN IV NAUSEA, MRX1 Last administered on 10/01/19 13:23; Start 10/01/19 at 07:00; Stop 10/01/19 at 14:59; Status DC Insulin Human Lispro (HumaLOG VIAL for OP,RR ONLY) 0-10 units PRN Q1HR PRN SQ PER PROTOCOL Last administered on 10/01/19at 13:47; Start 09/30/19 at 09:30; Stop 10/01/19 at 14:59; Status DC Hydralazine HCl (Apresoline Inj) 10 mg PRN Q4HRS PRN IVP ELEVATED BP, 1ST CHOICE Last administered on 09/30/19at 15:48; Start 09/30/19 at 12:45 Sodium Chloride (Normal Saline Flush) 3 ml QSHIFT PRN IV AFTER MEDS AND BLOOD DRAWS; Start 09/30/19 at 13:30 Sodium Chloride 1,000 ml @ 65 mls/hr [id number] IV Last administered on 10/03/19at 16:33; Start 09/30/19 at 13:18 Acetaminophen (Tylenol Supp) 650 mg PRN Q4HRS PRN PA TEMP OVER 100.4F OR MILD PAIN; Start 09/30/19 at 13:30 Clonidine HCl (Catapres) 0.1 mg PRN Q6HRS PRN PO SBP>160 OR DBP>90; Start 09/30/19 at 13:30 Sodium Monofluorophosphate (Fleet Adult) 133 ml PRN DAILY PRN PA CONSTIPATION; Start 09/30/19 at 13:30 Docusate Sodium (Colace) 100 mg PRN BID PRN PO HARD STOOLS; Start 09/30/19 at 13:30 Albuterol Sulfate (Ventolin Neb Soln) 2.5 mg PRN Q4HRS PRN NEB SHORTNESS OF BREATH Last administered on 10/03/19at 16:32; Start 09/30/19 at 13:30 Guaifenesin (Robitussin) 200 mg PRN Q4HRS PRN PO COUGH; Start 09/30/19 at 13:30 Enoxaparin Sodium (Lovenox 40mg Syringe) 40 mg Q24H SQ Last administered on 10/02/19at 21:08; Start 09/30/19 at 14:00 Losartan Potassium (Cozaar) 25 mg DAILY PO Last administered on 10/03/19at 08:36; Start 09/30/19 at 14:00 Simvastatin (Zocor) 10 mg HS PO Last administered on 10/02/19at 21:05; Start 09/30/19 at 21:00 Hydroxyzine HCl (Atarax) 25 mg PRN QID PRN PO ITCHING Last administered on 10/03/19at 08:41; Start 09/30/19 at 14:00 Non-Formulary Medication (Iloperidone (Fanapt)) 1 tab HS PO Last administered on 10/02/19at 21:00; Start 09/30/19 at 21:00 Pantoprazole Sodium (Protonix) 40 mg DAILYAC PO Last administered on 10/03/19at 07:26; Start 09/30/19 at 16:30 Acetaminophen (Tylenol) 650 mg PRN Q4HRS PRN PO MILD PAIN 1-3 Last administered on 10/02/19at 14:41; Start 09/30/19 at 16:15 Propofol (Diprivan) 200 mg STK-MED ONCE IV ; Start 10/01/19 at 08:34; Stop 10/01/19 at 08:35; Status DC Lidocaine HCl (Lidocaine Pf 2% Vial) 5 ml STK-MED ONCE .ROUTE ; Start 10/01/19 at 08:34; Stop 10/01/19 at 08:35; Status DC Dexamethasone Sodium Phosphate (Decadron) 4 mg STK-MED ONCE .ROUTE ; Start 10/01/19 at 08:34; Stop 10/01/19 at 08:35; Status DC Ondansetron HCl (Zofran) 4 mg STK-MED ONCE .ROUTE ; Start 10/01/19 at 08:34; Stop 10/01/19 at 08:35; Status DC Ephedrine Sulfate (ePHEDrine PF IN SALINE SYRINGE) 50 mg STK-MED ONCE IV ; Start 10/01/19 at 08:35; Stop 10/01/19 at 08:36; Status DC Glycopyrrolate (Robinul) 1 mg STK-MED ONCE .ROUTE ; Start 10/01/19 at 08:35; Stop 10/01/19 at 08:36; Status DC Neostigmine Morton (Neostigmine Methylsulfate) 5 mg STK-MED ONCE .ROUTE ; Start 10/01/19 at 08:38; Stop 10/01/19 at 08:39; Status DC Rocuronium Morton (Zemuron) 50 mg STK-MED ONCE .ROUTE ; Start 10/01/19 at 08:38; Stop 10/01/19 at 08:39; Status DC Succinylcholine Chloride (Anectine) 200 mg STK-MED ONCE .ROUTE ; Start 10/01/19 at 08:39; Stop 10/01/19 at 08:39; Status DC Fentanyl Citrate (Fentanyl 2ml Vial) 100 mcg STK-MED ONCE .ROUTE ; Start 10/01/19 at 08:40; Stop 10/01/19 at 08:40; Status DC Iohexol (Omnipaque 300 Mg/ml) 50 ml STK-MED ONCE .ROUTE Last administered on 10/01/19at 12:00; Start 10/01/19 at 10:24; Stop 10/01/19 at 10:24; Status DC Cellulose (Surgicel Hemostat 4x8) 1 each STK-MED ONCE .ROUTE Last administered on 10/01/19at 12:14; Start 10/01/19 at 10:24; Stop 10/01/19 at 10:24; Status DC Bupivacaine HCl (Sensorcaine Mpf 0.5%) 30 ml STK-MED ONCE .ROUTE Last administered on 10/01/19at 11:21; Start 10/01/19 at 10:24; Stop 10/01/19 at 10:25; Status DC Vasopressin (Vasostrict) 20 unit STK-MED ONCE .ROUTE ; Start 10/01/19 at 11:13; Stop 10/01/19 at 11:13; Status DC Sevoflurane (Ultane) 60 ml STK-MED ONCE IH ; Start 10/01/19 at 12:02; Stop 10/01/19 at 12:02; Status DC Neostigmine Morton (Neostigmine Methylsulfate) 5 mg STK-MED ONCE .ROUTE ; Start 10/01/19 at 12:02; Stop 10/01/19 at 12:02; Status DC Glycopyrrolate (Robinul) 1 mg STK-MED ONCE .ROUTE ; Start 10/01/19 at 12:03; Stop 10/01/19 at 12:03; Status DC Acetaminophen/ Hydrocodone Bitart (Lortab 5/325) 1 tab PRN Q4HRS PRN PO MODERATE PAIN Last administered on 10/03/19at 07:26; Start 10/01/19 at 13:15 Fentanyl Citrate (Fentanyl 2ml Vial) 100 mcg STK-MED ONCE .ROUTE ; Start 10/01/19 at 13:07; Stop 10/01/19 at 13:07; Status DC Acetaminophen/ Hydrocodone Bitart (Lortab 5/325) 2 tab PRN Q4HRS PRN PO SEVERE PAIN Last administered on 10/03/19at 16:36; Start 10/01/19 at 13:15 Fentanyl Citrate (Fentanyl 2ml Vial) 100 mcg STK-MED ONCE .ROUTE ; Start 10/01/19 at 13:31; Stop 10/01/19 at 13:31; Status DC Ondansetron HCl (Zofran) 4 mg PRN Q8HRS PRN IVP NAUSEA/VOMITING Last administered on 10/02/19at 09:30; Start 10/02/19 at 09:30 Lactobacillus Rhamnosus (Culturelle) 1 cap BID PO Last administered on 10/03/19at 08:35; Start 10/02/19 at 21:00 Fentanyl Citrate (Fentanyl 2ml Vial) 50 mcg PRN Q2HR PRN IVP PAIN Last admini stered on 10/03/19at 08:40; Start 10/02/19 at 14:15 Fluticasone Propionate (Flonase) 2 spray DAILY NS Last administered on 10/03/19 08:36; Start 10/02/19 at 16:30 Metformin HCl (Glucophage) 500 mg BIDWMEALS PO Last administered on 10/03/19at 16:36; Start 10/03/19 at 17:00 Docusate Sodium (Colace) 100 mg DAILY PO ; Start 10/04/19 at 09:00 Polyethylene Glycol (miraLAX PACKET) 17 gm 1X ONCE PO Last administered on 10/03/19at 13:16; Start 10/03/19 at 13:00; Stop 10/03/19 at 13:01; Status DC Polyethylene Glycol (miraLAX PACKET) 17 gm DAILY PO ; Start 10/04/19 at 09:00 Oxycodone HCl (Roxicodone) 10 mg 1X ONCE PO Last administered on 10/03/19at 13:17; Start 10/03/19 at 13:00; Stop 10/03/19 at 13:01; Status DC Active Scripts Active Reported Hydroxyzine Pamoate 25 Mg Capsule 25 Mg PO QIDPRN PRN Omeprazole 40 Mg Capsule. 1 Cap PO DAILY Fanapt (Iloperidone) 6 Mg Tablet 1 Tab PO HS 30 Days Losartan Potassium (Losartan Potassium) 25 Mg Tablet 25 Mg PO DAILY Simvastatin 10 Mg Tablet 10 Mg PO HS Metformin Hcl 500 Mg Tablet 500 Mg PO BIDWMEALS Vitals/I & O Vital Sign - Last 24 Hours 10/02/19 10/02/19 10/02/19 10/02/19 17:43 18:06 19:00 19:40 Temp 98.0 98.0 Pulse 94 Resp 18 B/P (MAP) 121/56 (77) Pulse Ox 95 96 O2 Delivery Room Air Room Air Room Air Room Air 10/02/19 10/03/19 10/03/19 10/03/19 23:00 03:00 06:50 07:20 Temp 98.3 98.3 98.7 98.3 98.3 98.7 Pulse 77 72 100 Resp 18 18 16 B/P (MAP) 151/74 (99) 153/61 (91) 143/65 (91) Pulse Ox 93 94 96 O2 Delivery Room Air Room Air Room Air Room Air 10/03/19 10/03/19 10/03/19 10/03/19 07:26 07:34 08:36 08:40 Pulse 100 B/P (MAP) 143/65 Pulse Ox 96 O2 Delivery Room Air Room Air Room Air 10/03/19 10/03/19 10/03/19 10/03/19 08:42 09:41 10:23 13:17 Temp 98.5 98.5 Pulse 106 Resp 17 B/P (MAP) 129/55 (79) Pulse Ox 94 O2 Delivery Room Air Room Air Room Air Room Air 10/03/19 10/03/19 10/03/19 10/03/19 14:25 14:44 16:33 16:36 Temp 99.6 99.6 Pulse 104 Resp 16 B/P (MAP) 128/62 (84) Pulse Ox 93 O2 Delivery Room Air Room Air Room Air Room Air Intake and Output 10/02/19 10/02/19 10/03/19 15:00 23:00 07:00 Intake Total 240 ml 180 ml 1800 ml Balance 240 ml 180 ml 1800 ml GROVER [place] MD Oct 03, 2019 17:08
[2019-10-03 19:00] VITALS: BP 131/71
[2019-10-03] MEDS: ILOPERIDONE 6 MG PO SCH (21:00)
[2019-10-03] MEDS: SIMVASTATIN 10 MG TABLET PO SCH (21:22)
[2019-10-03] MEDS: ENOXAPARIN 40 MG/0.4 ML SYRINGE. SQ SCH (21:24)
[2019-10-03 23:00] VITALS: BP 158/65
[2019-10-04 03:00] VITALS: BP 155/70
[2019-10-04] MEDS: HYDROcodone/APAP 5/325MG 1 TAB TABLET PO PRN ×2 (06:42→11:10)
[2019-10-04 07:00] VITALS: BP 180/81
[2019-10-04] MEDS: POLYETHYLENE GLYCOL 3350 17 GM PACKET. PO SCH (08:48)
[2019-10-04] MEDS: LOSARTAN POTASSIUM 25 MG TABLET. PO SCH (08:49)
[2019-10-04] MEDS: metFORMIN 500 MG TABLET PO SCH ×2 (08:49→17:43)
[2019-10-04] MEDS: PANTOPRAZOLE 40 MG TABLET.DR. PO SCH (08:49)
[2019-10-04] MEDS: LACTOBACILLUS RHAMNOSUS GG 1 CAPSULE. PO SCH ×2 (08:49→19:59)
[2019-10-04] MEDS: IV NORMAL SALINE 1000ML BAG 1,000 ML IV SCH (08:50)
[2019-10-04] MEDS: FLUTICASONE 50MCG/NASAL SPRAY 16GM BOTTLE. NS SCH (08:50)
[2019-10-04] MEDS ORDERED: DOCUSATE SODIUM 100 MG CAPSULE. PO SCH (09:00)
--- NOTE | 2019-10-04 09:45 | PDOC ---
PROGRESS NOTES Subjective Subjective pain in right abdomen Objective Objective Vital Signs Date Time Temp Pulse Resp B/P (MAP) Pulse Ox O2 Delivery O2 Flow Rate FiO2 10/04/19 08:49 110 180/81 10/04/19 07:45 Room Air 10/04/19 07:00 99.9 17 92 99.9 10/01/19 21:59 3.0 Intake and Output 10/04/19 07:00 Intake Total 3480 ml Output Total 50 ml Balance 3430 ml Intake Oral 1920 ml IV Total 780 ml Other 780 ml Drainage Total 50 ml # Voids 11 Physical Exam Abdomen: Soft (BERENICE serosang) Assessment Assessment Problems Medical Problems: (1) Acute cholecystitis Status: Acute (2) Hyperglycemia Status: Acute Plan Plan of Care Continue IV abx; will check labs Comment Review of Relevant I have reviewed the following items coleman (where applicable) has been applied. Labs Laboratory Tests Test 10/02/19 10:42 10/02/19 16:47 10/02/19 20:41 10/03/19 06:56 Glucose (Fingerstick) 184 mg/dL (70-99) 148 mg/dL (70-99) 154 mg/dL (70-99) 143 mg/dL (70-99) Test 10/03/19 11:22 10/03/19 16:16 10/04/19 08:07 Glucose (Fingerstick) 187 mg/dL (70-99) 152 mg/dL (70-99) 167 mg/dL (70-99) Laboratory Tests Test 10/03/19 11:22 10/03/19 16:16 10/04/19 08:07 Glucose (Fingerstick) 187 mg/dL (70-99) 152 mg/dL (70-99) 167 mg/dL (70-99) Microbiology 10/01/19 Blood Culture - Preliminary, Resulted NO GROWTH AFTER 3 DAYS Medications Current Medications Sodium Chloride 1,000 ml @ 1,000 mls/hr 1X ONCE IV Last administered on 09/29/19at 17:59; Start 09/29/19 at 17:45; Stop 09/29/19 at 18:44; Status DC Famotidine (Pepcid Vial) 20 mg 1X ONCE IVP Last administered on 09/29/19at 18:01; Start 09/29/19 at 17:45; Stop 09/29/19 at 17:46; Status DC Fentanyl Citrate (Fentanyl 2ml Vial) 50 mcg 1X ONCE IVP Last administered on 09/29/19at 18:02; Start 09/29/19 at 17:45; Stop 09/29/19 at 17:46; Status DC Iohexol (Omnipaque 300 Mg/ml) 75 ml 1X ONCE IV Last administered on 09/29/19at 19:26; Start 09/29/19 at 19:00; Stop 09/29/19 at 19:01; Status DC Info (CONTRAST GIVEN -- Rx MONITORING) 1 each PRN DAILY PRN MC SEE COMMENTS; Start 09/29/19 at 19:00; Stop 10/01/19 at 18:59; Status DC Magnesium Sulfate/ Dextrose 100 ml @ 100 mls/hr 1X ONCE IV Last administered on 09/29/19at 19:43; Start 09/29/19 at 19:30; Stop 09/29/19 at 20:29; Status DC Fentanyl Citrate (Fentanyl 2ml Vial) 50 mcg 1X ONCE IVP Last administered on 09/29/19at 19:50; Start 09/29/19 at 19:45; Stop 09/29/19 at 19:46; Status DC Levofloxacin/ Dextrose 100 ml @ 100 mls/hr 1X ONCE IV Last administered on 09/29/19at 21:30; Start 09/29/19 at 21:30; Stop 09/29/19 at 22:29; Status DC Ondansetron HCl (Zofran) 4 mg PRN Q8HRS PRN IV NAUSEA/VOMITING; Start 09/29/19 at 21:15; Stop 09/30/19 at 21:14; Status DC Fentanyl Citrate (Fentanyl 2ml Vial) 50 mcg PRN Q1HR PRN IV SEVERE PAIN 7-10 Last administered on 09/30/19at 20:09; Start 09/29/19 at 21:15; Stop 09/30/19 at 21:14; Status DC Sodium Chloride 1,000 ml @ 125 mls/hr 1X ONCE IV Last administered on 09/29/19at 21:30; Start 09/29/19 at 21:30; Stop 09/30/19 at 05:29; Status DC Labetalol HCl (Normodyne Iv Push) 10 mg PRN Q6HRS PRN IVP HYPERTENSION, 2ND CHOICE Last administered on 09/30/19 08:22; Start 09/29/19 at 21:15 Labetalol HCl (Normodyne Iv Push) 10 mg 1X ONCE IVP Last administered on 09/29/19 21:29; Start 09/29/19 at 21:30; Stop 09/29/19 at 21:31; Status DC Levofloxacin/ Dextrose 100 ml @ 100 mls/hr Q24H IV Last administered on 10/02at 21:22; Start 09/30/19 at 21:00 Metronidazole 100 ml @ 100 mls/hr Q12HR IV Last administered on 10/04/19at 08:50; Start 09/30/19 at 09:00 Fentanyl Citrate (Fentanyl 2ml Vial) 25 mcg PRN Q5MIN PRN IV MILD PAIN 1-3 Last administered on 10/01/19 13:24; Start 10/01/19 at 07:00; Stop 10/01/19 at 14:59; Status DC Fentanyl Citrate (Fentanyl 2ml Vial) 50 mcg PRN Q5MIN PRN IV MODERATE TO SEVERE PAIN Last administered on 10/01/19at 13:44; Start 10/01/19 at 07:00; Stop 10/01/19 at 14:59; Status DC Ringer's Solution 1,000 ml @ 30 mls/hr Q24H IV ; Start 10/01/19 at 07:00; Stop 10/01/19 at 14:59; Status DC Prochlorperazine Edisylate (Compazine) 5 mg PACU PRN PRN IV NAUSEA, MRX1 Last administered on 10/01/19at 13:23; Start 10/01/19 at 07:00; Stop 10/01/19 at 14:59; Status DC Insulin Human Lispro (HumaLOG VIAL for OP,RR ONLY) 0-10 units PRN Q1HR PRN SQ PER PROTOCOL Last administered on 10/01/19at 13:47; Start 09/30/19 at 09:30; Stop 10/01/19 at 14:59; Status DC Hydralazine HCl (Apresoline Inj) 10 mg PRN Q4HRS PRN IVP ELEVATED BP, 1ST CHOICE Last administered on 09/30/19at 15:48; Start 09/30/19 at 12:45 Sodium Chloride (Normal Saline Flush) 3 ml QSHIFT PRN IV AFTER MEDS AND BLOOD DRAWS; Start 09/30/19 at 13:30 Sodium Chloride 1,000 ml @ 65 mls/hr [id number] IV Last administered on 10/04/19 08:50; Start 09/30/19 at 13:18 Acetaminophen (Tylenol Supp) 650 mg PRN Q4HRS PRN [place] TEMP OVER 100.4F OR MILD PAIN; Start 09/30/19 at 13:30 Clonidine HCl (Catapres) 0.1 mg PRN Q6HRS PRN PO SBP>160 OR DBP>90; Start 09/30/19 at 13:30 Sodium Monofluorophosphate (Fleet Adult) 133 ml PRN DAILY PRN OK CONSTIPATION; Start 09/30/19 at 13:30 Docusate Sodium (Colace) 100 mg PRN BID PRN PO HARD STOOLS; Start 09/30/19 at 13:30 Albuterol Sulfate (Ventolin Neb Soln) 2.5 mg PRN Q4HRS PRN NEB SHORTNESS OF BREATH Last administered on 10/03/19at 16:32; Start 09/30/19 at 13:30 Guaifenesin (Robitussin) 200 mg PRN Q4HRS PRN PO COUGH; Start 09/30/19 at 13:30 Enoxaparin Sodium (Lovenox 40mg Syringe) 40 mg Q24H SQ Last administered on 10/03/19at 21:24; Start 09/30/19 at 14:00 Losartan Potassium (Cozaar) 25 mg DAILY PO Last administered on 10/04/19 08:49; Start 09/30/19 at 14:00 Simvastatin (Zocor) 10 mg HS PO Last administered on 10/03/19 21:22; Start 09/30/19 at 21:00 Hydroxyzine HCl (Atarax) 25 mg PRN QID PRN PO ITCHING Last administered on 10/03/19 18:02; Start 09/30/19 at 14:00 Non-Formulary Medication (Iloperidone (Fanapt)) 1 tab HS PO Last administered on 10/02/19 21:00; Start 09/30/19 at 21:00 Pantoprazole Sodium (Protonix) 40 mg DAILYAC PO Last administered on 6/10/20at 08:49; Start 09/30/19 at 16:30 Acetaminophen (Tylenol) 650 mg PRN Q4HRS PRN PO MILD PAIN 1-3 Last administered on 10/02/19at 14:41; Start 09/30/19 at 16:15 Propofol (Diprivan) 200 mg STK-MED ONCE IV ; Start 10/01/19 at 08:34; Stop 10/01/19 at 08:35; Status DC Lidocaine HCl (Lidocaine Pf 2% Vial) 5 ml STK-MED ONCE .ROUTE ; Start 10/01/19 at 08:34; Stop 10/01/19 at 08:35; Status DC Dexamethasone Sodium Phosphate (Decadron) 4 mg STK-MED ONCE .ROUTE ; Start 10/01/19 at 08:34; Stop 10/01/19 at 08:35; Status DC Ondansetron HCl (Zofran) 4 mg STK-MED ONCE .ROUTE ; Start 10/01/19 at 08:34; Stop 10/01/19 at 08:35; Status DC Ephedrine Sulfate (ePHEDrine PF IN SALINE SYRINGE) 50 mg STK-MED ONCE IV ; Start 10/01/19 at 08:35; Stop 10/01/19 at 08:36; Status DC Glycopyrrolate (Robinul) 1 mg STK-MED ONCE .ROUTE ; Start 10/01/19 at 08:35; Stop 10/01/19 at 08:36; Status DC Neostigmine Aspers (Neostigmine Methylsulfate) 5 mg STK-MED ONCE .ROUTE ; Start 10/01/19 at 08:38; Stop 10/01/19 at 08:39; Status DC Rocuronium Aspers (Zemuron) 50 mg STK-MED ONCE .ROUTE ; Start 10/01/19 at 08:38; Stop 10/01/19 at 08:39; Status DC Succinylcholine Chloride (Anectine) 200 mg STK-MED ONCE .ROUTE ; Start 10/01/19 at 08:39; Stop 10/01/19 at 08:39; Status DC Fentanyl Citrate (Fentanyl 2ml Vial) 100 mcg STK-MED ONCE .ROUTE ; Start 10/01/19 at 08:40; Stop 10/01/19 at 08:40; Status DC Iohexol (Omnipaque 300 Mg/ml) 50 ml STK-MED ONCE .ROUTE Last administered on 10/01/19at 12:00; Start 10/01/19 at 10:24; Stop 10/01/19 at 10:24; Status DC Cellulose (Surgicel Hemostat 4x8) 1 each STK-MED ONCE .ROUTE Last administered on 10/01/19at 12:14; Start 10/01/19 at 10:24; Stop 10/01/19 at 10:24; Status DC Bupivacaine HCl (Sensorcaine Mpf 0.5%) 30 ml STK-MED ONCE .ROUTE Last administered on 10/01/19at 11:21; Start 10/01/19 at 10:24; Stop 10/01/19 at 10:25; Status DC Vasopressin (Vasostrict) 20 unit STK-MED ONCE .ROUTE ; Start 10/01/19 at 11:13; Stop 10/01/19 at 11:13; Status DC Sevoflurane (Ultane) 60 ml STK-MED ONCE IH ; Start 10/01/19 at 12:02; Stop 10/01/19 at 12:02; Status DC Neostigmine Aspers (Neostigmine Methylsulfate) 5 mg STK-MED ONCE .ROUTE ; Start 10/01/19 at 12:02; Stop 10/01/19 at 12:02; Status DC Glycopyrrolate (Robinul) 1 mg STK-MED ONCE .ROUTE ; Start 10/01/19 at 12:03; Stop 10/01/19 at 12:03; Status DC Acetaminophen/ Hydrocodone Bitart (Lortab 5/325) 1 tab PRN Q4HRS PRN PO MODERATE PAIN Last administered on 10/04/19at 06:42; Start 10/01/19 at 13:15 Fentanyl Citrate (Fentanyl 2ml Vial) 100 mcg STK-MED ONCE .ROUTE ; Start 10/01/19 at 13:07; Stop 10/01/19 at 13:07; Status DC Acetaminophen/ Hydrocodone Bitart (Lortab 5/325) 2 tab PRN Q4HRS PRN PO SEVERE PAIN Last administered on 10/03/19at 16:36; Start 10/01/19 at 13:15 Fentanyl Citrate (Fentanyl 2ml Vial) 100 mcg STK-MED ONCE .ROUTE ; Start 10/01/19 at 13:31; Stop 10/01/19 at 13:31; Status DC Ondansetron HCl (Zofran) 4 mg PRN Q8HRS PRN IVP NAUSEA/VOMITING Last administered on 10/02/19 09:30; Start 10/02/19 at 09:30 Lactobacillus Rhamnosus (Culturelle) 1 cap BID PO Last administered on 10/04/19 08:49; Start 10/02/19 at 21:00 Fentanyl Citrate (Fentanyl 2ml Vial) 50 mcg PRN Q2HR PRN IVP PAIN Last administered on 10/03/19at 08:40; Start 10/02/19 at 14:15 Fluticasone Propionate (Flonase) 2 spray DAILY NS Last administered on 10/04/19 08:50; Start 10/02/19 at 16:30 Metformin HCl (Glucophage) 500 mg BIDWMEALS PO Last administered on 10/04/19at 08:49; Start 10/03/19 at 17:00 Docusate Sodium (Colace) 100 mg DAILY PO Last administered on 10/04/19at 08:49; Start 10/04/19 at 09:00 Polyethylene Glycol (miraLAX PACKET) 17 gm 1X ONCE PO Last administered on 10/03/19 13:16; Start 10/03/19 at 13:00; Stop 10/03/19 at 13:01; Status DC Polyethylene Glycol (miraLAX PACKET) 17 gm DAILY PO Last administered on 10/04/19at 08:48; Start 10/04/19 at 09:00 Oxycodone HCl (Roxicodone) 10 mg 1X ONCE PO Last administered on 10/03/19 13:17; Start 10/03/19 at 13:00; Stop 10/03/19 at 13:01; Status DC Active Scripts Active Reported Hydroxyzine Pamoate 25 Mg Capsule 25 Mg PO QIDPRN PRN Omeprazole 40 Mg Capsule. 1 Cap PO DAILY Fanapt (Iloperidone) 6 Mg Tablet 1 Tab PO HS 30 Days Losartan Potassium (Losartan Potassium) 25 Mg Tablet 25 Mg PO DAILY Simvastatin 10 Mg Tablet 10 Mg PO HS Metformin Hcl 500 Mg Tablet 500 Mg PO BIDWMEALS Vitals/I & O Vital Sign - Last 24 Hours 10/03/19 10/03/19 10/03/19 10/03/19 10:23 13:17 14:25 14:44 Temp 98.5 99.6 98.5 99.6 Pulse 106 104 Resp 17 16 B/P (MAP) 129/55 (79) 128/62 (84) Pulse Ox 94 93 O2 Delivery Room Air Room Air Room Air Room Air 10/03/19 10/03/19 10/03/19 10/03/19 16:33 16:36 17:57 19:00 Temp 99.1 99.1 Pulse 93 Resp 20 B/P (MAP) 131/71 (91) Pulse Ox 91 O2 Delivery Room Air Room Air Room Air Room Air 10/03/19 10/03/19 10/04/19 10/04/19 20:00 23:00 03:00 06:42 Temp 99.3 100.5 99.3 100.5 Pulse 95 97 Resp 20 20 20 B/P (MAP) 158/65 (96) 155/70 (98) Pulse Ox 95 94 O2 Delivery Room Air Room Air Room Air Room Air 10/04/19 10/04/19 10/04/19 07:00 07:45 08:49 Temp 99.9 99.9 Pulse 110 110 Resp 17 B/P (MAP) 180/81 (114) 180/81 Pulse Ox 92 O2 Delivery Room Air Room Air Intake and Output 10/03/19 10/03/19 10/04/19 15:00 23:00 07:00 Intake Total 440 ml 1040 ml 2000 ml Output Total 50 ml Balance 440 ml 1040 ml 1950 ml GROVER [place] MD Oct 04, 2019 09:45
[2019-10-04 10:22] LABS: BASO % 0 % (0-3); EOS # 0.2 x10^3/uL (0.0-0.7); EOS % 2 % (0-3); HEMATOCRIT 31.6 % (36.0-47.0); HEMOGLOBIN 10.4 g/dL (12.0-15.5); LYMPH # 1.2 x10^3/uL (1.0-4.8); LYMPH % 16 % (24-48); MEAN CORPUSCULAR HEMOGLOBIN 26 pg (25-35); MEAN CORPUSCULAR HGB CONC 33 g/dL (31-37); MEAN CORPUSCULAR VOLUME 79 fL (79-100); MONO # 0.6 x10^3/uL (0.0-1.1); MONO % 8 % (0-9); NEUT # 5.4 x10^3/uL (1.8-7.7); NEUT % 73 % (31-73); PLATELET COUNT 365 x10^3/uL (140-400); RED CELL DISTRIBUTION WIDTH 14.3 % (11.5-14.5); WHITE BLOOD COUNT 7.4 x10^3/uL (4.0-11.0)
[2019-10-04 10:35] LABS: ALBUMIN 2.1 g/dL (3.4-5.0); ALBUMIN/GLOBULIN RATIO 0.5 (1.0-1.7); CALCIUM 8.4 mg/dL (8.5-10.1); GFR 67.3; POTASSIUM 3.3 mmol/L (3.5-5.1); TOTAL BILIRUBIN 0.3 mg/dL (0.2-1.0); TOTAL PROTEIN 6.1 g/dL (6.4-8.2)
[2019-10-04 11:00] VITALS: BP 167/63
[2019-10-04] MEDS ORDERED: POTASSIUM CHLORIDE 20 MEQ TABLET.ER. PO ONE (11:15)
[2019-10-04] MEDS ORDERED: POLYETHYLENE GLYCOL 3350 17 GM PACKET. PO ONE (11:15)
[2019-10-04] MEDS ORDERED: DOCUSATE SODIUM 100 MG CAPSULE. PO PRN (11:15)
[2019-10-04] MEDS ORDERED: HYDR-2761 PO (11:20)
[2019-10-04] MEDS ORDERED: POLY17PO28 PO (11:20)
[2019-10-04] MEDS ORDERED: KETOROLAC 30 MG/ML VIAL. IVP ONE (11:30)
[2019-10-04] MEDS ORDERED: oxyCODONE IR 5 MG TABLET PO ONE (11:30)
[2019-10-04] MEDS: DOCUSATE SODIUM 100 MG CAPSULE. PO SCH (12:00)
--- NOTE | 2019-10-04 13:43 | PDOC ---
PROGRESS NOTES Chief Complaint Chief Complaint acute abd pain, ACUTE Cholecystitis. severe noted on surg note, DIABETES 2 overweight, BMI 29 weakness, and nausea and pain History of Present Illness History of Present Illness still having pain, try to DC s/p surg on 09/30 pain, nausea : Laparoscopic cholecystectomy with intraoperative cholangiogram Vitals Vitals Vital Signs Date Time Temp Pulse Resp B/P (MAP) Pulse Ox O2 Delivery O2 Flow Rate FiO2 10/04/19 11:10 Room Air 10/04/19 11:00 100.0 107 18 167/63 (97) 90 100.0 Physical Exam Physical Exam ITALS: Within normal limits and are stable. GENERAL: No apparent distress. Alert and oriented. HEENT: Normal cephalic atraumatic, external auditory canals are patent EYES: Extraocular muscles are intact, pupils are equally round and reactive to light and accommodation MUSCULOSKELETAL: Well developed, well nourished, good range of motion ENDOCRINE: No thyromegaly was palpated LYMPHATICS: No cervical chain or axillary nodes were noted HEMATOPOIETIC: No bruising NECK: Supple, no JVD, no thyromegaly was noted. LUNGS: Clear to auscultation in all lung del real without rhonchi or wheezing. HEART: RRR, S1, S2 present. Peripheral pulses intact, no obvious murmurs were noted. ABDOMEN: She has decreased bowel sounds and it is tender to touch. EXTREMITIES: Without any cyanosis, clubbing, or edema. Pedal pulses intact, Homans sign is negative. NEUROLOGIC: Normal speech, normal tone. A & O x3, moves all extremities, no obvious focal deficits. PSYCHIATRIC: Normal affect, normal mood. Stable. SKIN: No ulcerations or rashes, good skin turgor, no jaundice. VASCULAR: Good capillary refill, neurovascular bundle appears to be intact. General: Alert, Oriented X3, Cooperative Heart: Regular rate, Normal S1 Lungs: Clear Abdomen: Soft (BERENICE serosang) Extremities: No clubbing, No cyanosis Skin: No rashes Labs LABS Laboratory Tests Test 10/03/19 16:16 10/04/19 08:07 10/04/19 10:15 10/04/19 11:28 Glucose (Fingerstick) 152 mg/dL (70-99) 167 mg/dL (70-99) 193 mg/dL (70-99) White Blood Count 7.4 x10^3/uL (4.0-11.0) Red Blood Count 4.00 x10^6/uL (3.50-5.40) Hemoglobin 10.4 g/dL (12.0-15.5) Hematocrit 31.6 % (36.0-47.0) Mean Corpuscular Volume 79 fL (79-100) Mean Corpuscular Hemoglobin 26 pg (25-35) Mean Corpuscular Hemoglobin Concent 33 g/dL (31-37) Red Cell Distribution Width 14.3 % (11.5-14.5) Platelet Count 365 x10^3/uL (140-400) Neutrophils (%) (Auto) 73 % (31-73) Lymphocytes (%) (Auto) 16 % (24-48) Monocytes (%) (Auto) 8 % (0-9) Eosinophils (%) (Auto) 2 % (0-3) Basophils (%) (Auto) 0 % (0-3) Neutrophils # (Auto) 5.4 x10^3/uL (1.8-7.7) Lymphocytes # (Auto) 1.2 x10^3/uL (1.0-4.8) Monocytes # (Auto) 0.6 x10^3/uL (0.0-1.1) Eosinophils # (Auto) 0.2 x10^3/uL (0.0-0.7) Basophils # (Auto) 0.0 x10^3/uL (0.0-0.2) Sodium Level 138 mmol/L (136-145) Potassium Level 3.3 mmol/L (3.5-5.1) Chloride Level 105 mmol/L (98-107) Carbon Dioxide Level 27 mmol/L (21-32) Anion Gap 6 (6-14) Blood Urea Nitrogen 7 mg/dL (7-20) Creatinine 1.0 mg/dL (0.6-1.0) Estimated GFR (Cockcroft-Gault) 67.3 BUN/Creatinine Ratio 7 (6-20) Glucose Level 217 mg/dL (70-99) Calcium Level 8.4 mg/dL (8.5-10.1) Total Bilirubin 0.3 mg/dL (0.2-1.0) Aspartate Amino Transf (AST/SGOT) 15 U/L (15-37) Alanine Aminotransferase (ALT/SGPT) 36 U/L (14-59) Alkaline Phosphatase 88 U/L (46-116) Total Protein 6.1 g/dL (6.4-8.2) Albumin 2.1 g/dL (3.4-5.0) Albumin/Globulin Ratio 0.5 (1.0-1.7) Assessment and Plan Assessmemt and Plan Problems Medical Problems: (1) Acute cholecystitis Status: Acute (2) Hyperglycemia Status: Acute Comment Review of Relevant I have reviewed the following items coleman (where applicable) has been applied. Labs Laboratory Tests Test 10/02/19 16:47 10/02/19 20:41 10/03/19 06:56 10/03/19 11:22 Glucose (Fingerstick) 148 mg/dL (70-99) 154 mg/dL (70-99) 143 mg/dL (70-99) 187 mg/dL (70-99) Test 10/03/19 16:16 10/04/19 08:07 10/04/19 10:15 10/04/19 11:28 Glucose (Fingerstick) 152 mg/dL (70-99) 167 mg/dL (70-99) 193 mg/dL (70-99) White Blood Count 7.4 x10^3/uL (4.0-11.0) Red Blood Count 4.00 x10^6/uL (3.50-5.40) Hemoglobin 10.4 g/dL (12.0-15.5) Hematocrit 31.6 % (36.0-47.0) Mean Corpuscular Volume 79 fL (79-100) Mean Corpuscular Hemoglobin 26 pg (25-35) Mean Corpuscular Hemoglobin Concent 33 g/dL (31-37) Red Cell Distribution Width 14.3 % (11.5-14.5) Platelet Count 365 x10^3/uL (140-400) Neutrophils (%) (Auto) 73 % (31-73) Lymphocytes (%) (Auto) 16 % (24-48) Monocytes (%) (Auto) 8 % (0-9) Eosinophils (%) (Auto) 2 % (0-3) Basophils (%) (Auto) 0 % (0-3) Neutrophils # (Auto) 5.4 x10^3/uL (1.8-7.7) Lymphocytes # (Auto) 1.2 x10^3/uL (1.0-4.8) Monocytes # (Auto) 0.6 x10^3/uL (0.0-1.1) Eosinophils # (Auto) 0.2 x10^3/uL (0.0-0.7) Basophils # (Auto) 0.0 x10^3/uL (0.0-0.2) Sodium Level 138 mmol/L (136-145) Potassium Level 3.3 mmol/L (3.5-5.1) Chloride Level 105 mmol/L (98-107) Carbon Dioxide Level 27 mmol/L (21-32) Anion Gap 6 (6-14) Blood Urea Nitrogen 7 mg/dL (7-20) Creatinine 1.0 mg/dL (0.6-1.0) Estimated GFR (Cockcroft-Gault) 67.3 BUN/Creatinine Ratio 7 (6-20) Glucose Level 217 mg/dL (70-99) Calcium Level 8.4 mg/dL (8.5-10.1) Total Bilirubin 0.3 mg/dL (0.2-1.0) Aspartate Amino Transf (AST/SGOT) 15 U/L (15-37) Alanine Aminotransferase (ALT/SGPT) 36 U/L (14-59) Alkaline Phosphatase 88 U/L (46-116) Total Protein 6.1 g/dL (6.4-8.2) Albumin 2.1 g/dL (3.4-5.0) Albumin/Globulin Ratio 0.5 (1.0-1.7) Laboratory Tests Test 10/03/19 16:16 10/04/19 08:07 10/04/19 10:15 10/04/19 11:28 Glucose (Fingerstick) 152 mg/dL (70-99) 167 mg/dL (70-99) 193 mg/dL (70-99) White Blood Count 7.4 x10^3/uL (4.0-11.0) Red Blood Count 4.00 x10^6/uL (3.50-5.40) Hemoglobin 10.4 g/dL (12.0-15.5) Hematocrit 31.6 % (36.0-47.0) Mean Corpuscular Volume 79 fL (79-100) Mean Corpuscular Hemoglobin 26 pg (25-35) Mean Corpuscular Hemoglobin Concent 33 g/dL (31-37) Red Cell Distribution Width 14.3 % (11.5-14.5) Platelet Count 365 x10^3/uL (140-400) Neutrophils (%) (Auto) 73 % (31-73) Lymphocytes (%) (Auto) 16 % (24-48) Monocytes (%) (Auto) 8 % (0-9) Eosinophils (%) (Auto) 2 % (0-3) Basophils (%) (Auto) 0 % (0-3) Neutrophils # (Auto) 5.4 x10^3/uL (1.8-7.7) Lymphocytes # (Auto) 1.2 x10^3/uL (1.0-4.8) Monocytes # (Auto) 0.6 x10^3/uL (0.0-1.1) Eosinophils # (Auto) 0.2 x10^3/uL (0.0-0.7) Basophils # (Auto) 0.0 x10^3/uL (0.0-0.2) Sodium Level 138 mmol/L (136-145) Potassium Level 3.3 mmol/L (3.5-5.1) Chloride Level 105 mmol/L (98-107) Carbon Dioxide Level 27 mmol/L (21-32) Anion Gap 6 (6-14) Blood Urea Nitrogen 7 mg/dL (7-20) Creatinine 1.0 mg/dL (0.6-1.0) Estimated GFR (Cockcroft-Gault) 67.3 BUN/Creatinine Ratio 7 (6-20) Glucose Level 217 mg/dL (70-99) Calcium Level 8.4 mg/dL (8.5-10.1) Total Bilirubin 0.3 mg/dL (0.2-1.0) Aspartate Amino Transf (AST/SGOT) 15 U/L (15-37) Alanine Aminotransferase (ALT/SGPT) 36 U/L (14-59) Alkaline Phosphatase 88 U/L (46-116) Total Protein 6.1 g/dL (6.4-8.2) Albumin 2.1 g/dL (3.4-5.0) Albumin/Globulin Ratio 0.5 (1.0-1.7) Microbiology 10/01/19 Blood Culture - Preliminary, Resulted NO GROWTH AFTER 3 DAYS Medications Current Medications Sodium Chloride 1,000 ml @ 1,000 mls/hr 1X ONCE IV Last administered on 09/29/19at 17:59; Start 09/29/19 at 17:45; Stop 09/29/19 at 18:44; Status DC Famotidine (Pepcid Vial) 20 mg 1X ONCE IVP Last administered on 09/29/19at 18:01; Start 09/29/19 at 17:45; Stop 09/29/19 at 17:46; Status DC Fentanyl Citrate (Fentanyl 2ml Vial) 50 mcg 1X ONCE IVP Last administered on 09/29/19at 18:02; Start 09/29/19 at 17:45; Stop 09/29/19 at 17:46; Status DC Iohexol (Omnipaque 300 Mg/ml) 75 ml 1X ONCE IV Last administered on 09/29/19at 19:26; Start 09/29/19 at 19:00; Stop 09/29/19 at 19:01; Status DC Info (CONTRAST GIVEN -- Rx MONITORING) 1 each PRN DAILY PRN MC SEE COMMENTS; Start 09/29/19 at 19:00; Stop 10/01/19 at 18:59; Status DC Magnesium Sulfate/ Dextrose 100 ml @ 100 mls/hr 1X ONCE IV Last administered on 09/29/19at 19:43; Start 09/29/19 at 19:30; Stop 09/29/19 at 20:29; Status DC Fentanyl Citrate (Fentanyl 2ml Vial) 50 mcg 1X ONCE IVP Last administered on 09/29/19at 19:50; Start 09/29/19 at 19:45; Stop 09/29/19 at 19:46; Status DC Levofloxacin/ Dextrose 100 ml @ 100 mls/hr 1X ONCE IV Last administered on 09/29/19at 21:30; Start 09/29/19 at 21:30; Stop 09/29/19 at 22:29; Status DC Ondansetron HCl (Zofran) 4 mg PRN Q8HRS PRN IV NAUSEA/VOMITING; Start 09/29/19 at 21:15; Stop 09/30/19 at 21:14; Status DC Fentanyl Citrate (Fentanyl 2ml Vial) 50 mcg PRN Q1HR PRN IV SEVERE PAIN 7-10 Last administered on 09/30/19 20:09; Start 09/29/19 at 21:15; Stop 09/30/19 at 21:14; Status DC Sodium Chloride 1,000 ml @ 125 mls/hr 1X ONCE IV Last administered on 09/29/19 21:30; Start 09/29/19 at 21:30; Stop 09/30/19 at 05:29; Status DC Labetalol HCl (Normodyne Iv Push) 10 mg PRN Q6HRS PRN IVP HYPERTENSION, 2ND CHOICE Last administered on 09/30/19 08:22; Start 09/29/19 at 21:15 Labetalol HCl (Normodyne Iv Push) 10 mg 1X ONCE IVP Last administered on 09/29/19 21:29; Start 09/29/19 at 21:30; Stop 09/29/19 at 21:31; Status DC Levofloxacin/ Dextrose 100 ml @ 100 mls/hr Q24H IV Last administered on 10/03/19 21:22; Start 09/30/19 at 21:00 Metronidazole 100 ml @ 100 mls/hr Q12HR IV Last administered on 10/04/19 08:50; Start 09/30/19 at 09:00 Fentanyl Citrate (Fentanyl 2ml Vial) 25 mcg PRN Q5MIN PRN IV MILD PAIN 1-3 Last administered on 10/01/19 13:24; Start 10/01/19 at 07:00; Stop 10/01/19 at 14:59; Status DC Fentanyl Citrate (Fentanyl 2ml Vial) 50 mcg PRN Q5MIN PRN IV MODERATE TO SEVERE PAIN Last administered on 10/01/19 13:44; Start 10/01/19 at 07:00; Stop 10/01/19 at 14:59; Status DC Ringer's Solution 1,000 ml @ 30 mls/hr Q24H IV ; Start 10/01/19 at 07:00; Stop 10/01/19 at 14:59; Status DC Prochlorperazine Edisylate (Compazine) 5 mg PACU PRN PRN IV NAUSEA, MRX1 Last administered on 10/01/19 13:23; Start 10/01/19 at 07:00; Stop 10/01/19 at 14:59; Status DC Insulin Human Lispro (HumaLOG VIAL for OP,RR ONLY) 0-10 units PRN Q1HR PRN SQ PER PROTOCOL Last administered on 10/01/19at 13:47; Start 09/30/19 at 09:30; Stop 10/01/19 at 14:59; Status DC Hydralazine HCl (Apresoline Inj) 10 mg PRN Q4HRS PRN IVP ELEVATED BP, 1ST CHOICE Last administered on 09/30/19at 15:48; Start 09/30/19 at 12:45 Sodium Chloride (Normal Saline Flush) 3 ml QSHIFT PRN IV AFTER MEDS AND BLOOD DRAWS; Start 09/30/19 at 13:30 Sodium Chloride 1,000 ml @ 65 mls/hr [id number] IV Last administered on 10/04/19at 08:50; Start 09/30/19 at 13:18 Acetaminophen (Tylenol Supp) 650 mg PRN Q4HRS PRN [place] TEMP OVER 100.4F OR MILD PAIN; Start 09/30/19 at 13:30 Clonidine HCl (Catapres) 0.1 mg PRN Q6HRS PRN PO SBP>160 OR DBP>90; Start 09/30/19 at 13:30 Sodium Monofluorophosphate (Fleet Adult) 133 ml PRN DAILY PRN [place] CONSTIPATION; Start 09/30/19 at 13:30 Docusate Sodium (Colace) 100 mg PRN BID PRN PO HARD STOOLS; Start 09/30/19 at 13:30 Albuterol Sulfate (Ventolin Neb Soln) 2.5 mg PRN Q4HRS PRN NEB SHORTNESS OF BREATH Last administered on 10/03/19at 16:32; Start 09/30/19 at 13:30 Guaifenesin (Robitussin) 200 mg PRN Q4HRS PRN PO COUGH; Start 09/30/19 at 13:30 Enoxaparin Sodium (Lovenox 40mg Syringe) 40 mg Q24H SQ Last administered on 10/03/19at 21:24; Start 09/30/19 at 14:00 Losartan Potassium (Cozaar) 25 mg DAILY PO Last administered on 10/04/19at 08:49; Start 09/30/19 at 14:00 Simvastatin (Zocor) 10 mg HS PO Last administered on 10/03/19at 21:22; Start 09/30/19 at 21:00 Hydroxyzine HCl (Atarax) 25 mg PRN QID PRN PO ITCHING Last administered on 10/03/19at 18:02; Start 09/30/19 at 14:00 Non-Formulary Medication (Iloperidone (Fanapt)) 1 tab HS PO Last administered on 10/02/19at 21:00; Start 09/30/19 at 21:00 Pantoprazole Sodium (Protonix) 40 mg DAILYAC PO Last administered on 10/04/19at 08:49; Start 09/30/19 at 16:30 Acetaminophen (Tylenol) 650 mg PRN Q4HRS PRN PO MILD PAIN 1-3 Last administered on 10/02/19at 14:41; Start 09/30/19 at 16:15 Propofol (Diprivan) 200 mg STK-MED ONCE IV ; Start 10/01/19 at 08:34; Stop 10/01/19 at 08:35; Status DC Lidocaine HCl (Lidocaine Pf 2% Vial) 5 ml STK-MED ONCE .ROUTE ; Start 10/01/19 at 08:34; Stop 10/01/19 at 08:35; Status DC Dexamethasone Sodium Phosphate (Decadron) 4 mg STK-MED ONCE .ROUTE ; Start 10/01/19 at 08:34; Stop 10/01/19 at 08:35; Status DC Ondansetron HCl (Zofran) 4 mg STK-MED ONCE .ROUTE ; Start 10/01/19 at 08:34; Stop 10/01/19 at 08:35; Status DC Ephedrine Sulfate (ePHEDrine PF IN SALINE SYRINGE) 50 mg STK-MED ONCE IV ; Start 10/01/19 at 08:35; Stop 10/01/19 at 08:36; Status DC Glycopyrrolate (Robinul) 1 mg STK-MED ONCE .ROUTE ; Start 10/01/19 at 08:35; Stop 10/01/19 at 08:36; Status DC Neostigmine [place] (Neostigmine Methylsulfate) 5 mg STK-MED ONCE .ROUTE ; Start 10/01/19 at 08:38; Stop 10/01/19 at 08:39; Status DC Rocuronium [place] (Zemuron) 50 mg STK-MED ONCE .ROUTE ; Start 10/01/19 at 08:38; Stop 10/01/19 at 08:39; Status DC Succinylcholine Chloride (Anectine) 200 mg STK-MED ONCE .ROUTE ; Start 10/01/19 at 08:39; Stop 10/01/19 at 08:39; Status DC Fentanyl Citrate (Fentanyl 2ml Vial) 100 mcg STK-MED ONCE .ROUTE ; Start 10/01/19 at 08:40; Stop 10/01/19 at 08:40; Status DC Iohexol (Omnipaque 300 Mg/ml) 50 ml STK-MED ONCE .ROUTE Last administered on 10/01/19at 12:00; Start 10/01/19 at 10:24; Stop 10/01/19 at 10:24; Status DC Cellulose (Surgicel Hemostat 4x8) 1 each STK-MED ONCE .ROUTE Last administered on 10/01/19at 12:14; Start 10/01/19 at 10:24; Stop 10/01/19 at 10:24; Status DC Bupivacaine HCl (Sensorcaine Mpf 0.5%) 30 ml STK-MED ONCE .ROUTE Last administered on 10/01/19at 11:21; Start 10/01/19 at 10:24; Stop 10/01/19 at 10:25; Status DC Vasopressin (Vasostrict) 20 unit STK-MED ONCE .ROUTE ; Start 10/01/19 at 11:13; Stop 10/01/19 at 11:13; Status DC Sevoflurane (Ultane) 60 ml STK-MED ONCE IH ; Start 10/01/19 at 12:02; Stop 10/01/19 at 12:02; Status DC Neostigmine [place] (Neostigmine Methylsulfate) 5 mg STK-MED ONCE .ROUTE ; Start 10/01/19 at 12:02; Stop 10/01/19 at 12:02; Status DC Glycopyrrolate (Robinul) 1 mg STK-MED ONCE .ROUTE ; Start 10/01/19 at 12:03; Stop 10/01/19 at 12:03; Status DC Acetaminophen/ Hydrocodone Bitart (Lortab 5/325) 1 tab PRN Q4HRS PRN PO MODERATE PAIN Last administered on 10/04/19at 06:42; Start 10/01/19 at 13:15 Fentanyl Citrate (Fentanyl 2ml Vial) 100 mcg STK-MED ONCE .ROUTE ; Start 10/01/19 at 13:07; Stop 10/01/19 at 13:07; Status DC Acetaminophen/ Hydrocodone Bitart (Lortab 5/325) 2 tab PRN Q4HRS PRN PO SEVERE PAIN Last administered on 10/04/19at 11:10; Start 10/01/19 at 13:15 Fentanyl Citrate (Fentanyl 2ml Vial) 100 mcg STK-MED ONCE .ROUTE ; Start 10/01/19 at 13:31; Stop 10/01/19 at 13:31; Status DC Ondansetron HCl (Zofran) 4 mg PRN Q8HRS PRN IVP NAUSEA/VOMITING Last administered on 10/02/19at 09:30; Start 10/02/19 at 09:30 Lactobacillus Rhamnosus (Culturelle) 1 cap BID PO Last administered on 10/04/19at 08:49; Start 10/02/19 at 21:00 Fentanyl Citrate (Fentanyl 2ml Vial) 50 mcg PRN Q2HR PRN IVP PAIN Last administered on 10/03/19at 08:40; Start 10/02/19 at 14:15 Fluticasone Propionate (Flonase) 2 spray DAILY NS Last administered on 10/04/19 08:50; Start 10/02/19 at 16:30 Metformin HCl (Glucophage) 500 mg BIDWMEALS PO Last administered on 10/04/19 08:49; Start 10/03/19 at 17:00 Docusate Sodium (Colace) 100 mg DAILY PO Last administered on 10/04/19at 08:49; Start 10/04/19 at 09:00; Stop 10/04/19 at 11:19; Status DC Polyethylene Glycol (miraLAX PACKET) 17 gm 1X ONCE PO Last administered on 10/02 13:16; Start 10/03/19 at 13:00; Stop 10/03/19 at 13:01; Status DC Polyethylene Glycol (miraLAX PACKET) 17 gm DAILY PO Last administered on 10/04/19at 08:48; Start 10/04/19 at 09:00 Oxycodone HCl (Roxicodone) 10 mg 1X ONCE PO Last administered on 10/03/19at 13:17; Start 10/03/19 at 13:00; Stop 10/03/19 at 13:01; Status DC Potassium Chloride (Klor-Con) 40 meq 1X ONCE PO Last administered on 10/04/19at 13:36; Start 10/04/19 at 11:15; Stop 10/04/19 at 11:16; Status DC Polyethylene Glycol (miraLAX PACKET) 17 gm 1X ONCE PO ; Start 10/04/19 at 11:15; Stop 10/04/19 at 11:16; Status DC Docusate Sodium (Colace) 100 mg DAILY PO ; Start 10/04/19 at 12:00 Docusate Sodium (Colace) 100 mg PRN DAILY PRN PO HARD STOOLS; Start 10/04/19 at 11:15 Oxycodone HCl (Roxicodone) 10 mg 1X ONCE PO ; Start 10/04/19 at 11:30; Stop 10/04/19 at 11:31; Status DC Ketorolac Tromethamine (Toradol 30mg Vial) 30 mg 1X ONCE IVP Last administered on 10/04/19at 13:35; Start 10/04/19 at 11:30; Stop 10/04/19 at 11:31; Status DC Active Scripts Active Hydrocodone-Apap 5-325 (Hydrocodone Bit/Acetaminophen) 1 Tab Tablet 1 Tab PO PRN Q4HRS PRN Reported Hydroxyzine Pamoate 25 Mg Capsule 25 Mg PO QIDPRN PRN Omeprazole 40 Mg Capsule.dr 1 Cap PO DAILY Fanapt (Iloperidone) 6 Mg Tablet 1 Tab PO HS 30 Days Losartan Potassium (Losartan Potassium) 25 Mg Tablet 25 Mg PO DAILY Simvastatin 10 Mg Tablet 10 Mg PO HS Metformin Hcl 500 Mg Tablet 500 Mg PO BIDWMEALS Vitals/I & O Vital Sign - Last 24 Hours 10/03/19 10/03/19 10/03/19 10/03/19 14:25 14:44 16:33 16:36 Temp 99.6 99.6 Pulse 104 Resp 16 B/P (MAP) 128/62 (84) Pulse Ox 93 O2 Delivery Room Air Room Air Room Air Room Air 10/03/19 10/03/19 10/03/19 10/03/19 17:57 19:00 20:00 23:00 Temp 99.1 99.3 99.1 99.3 Pulse 93 95 Resp 20 20 B/P (MAP) 131/71 (91) 158/65 (96) Pulse Ox 91 95 O2 Delivery Room Air Room Air Room Air Room Air 10/04/19 10/04/19 10/04/19 10/04/19 03:00 06:42 07:00 07:45 Temp 100.5 99.9 100.5 99.9 Pulse 97 110 Resp 20 20 17 B/P (MAP) 155/70 (98) 180/81 (114) Pulse Ox 94 92 O2 Delivery Room Air Room Air Room Air Room Air 10/04/19 10/04/19 10/04/19 10/04/19 08:00 08:49 11:00 11:10 Temp 100.0 100.0 Pulse 110 107 Resp 18 B/P (MAP) 180/81 167/63 (97) Pulse Ox 90 O2 Delivery Room Air Room Air Room Air Intake and Output 10/03/19 10/03/19 10/04/19 14:59 22:59 06:59 Intake Total 440 ml 1040 ml 2000 ml Output Total 50 ml Balance 440 ml 1040 ml 1950 ml ROCIO SAWYER MD Oct 04, 2019 13:42
[2019-10-04] MEDS ORDERED: MAGNESIUM SULFATE 4GM 100 ML IV ONE (13:45)
[2019-10-04 15:00] VITALS: BP 136/59
[2019-10-04 19:18] VITALS: BP 155/75
[2019-10-04] MEDS: oxyCODONE IR 5 MG TABLET PO PRN (19:58)
[2019-10-04] MEDS: SIMVASTATIN 10 MG TABLET PO SCH (19:59)
[2019-10-04] MEDS: ILOPERIDONE 6 MG PO SCH (20:00)
[2019-10-04] MEDS: ENOXAPARIN 40 MG/0.4 ML SYRINGE. SQ SCH (22:39)
[2019-10-04 23:06] VITALS: BP 138/68
[2019-10-05] MEDS: oxyCODONE IR 5 MG TABLET PO PRN ×2 (05:54→12:13)
[2019-10-05] MEDS: PANTOPRAZOLE 40 MG TABLET.DR. PO SCH (05:54)
[2019-10-05] MEDS: IV NORMAL SALINE 1000ML BAG 1,000 ML IV SCH (05:58)
[2019-10-05 07:50] VITALS: BP 158/66
[2019-10-05] MEDS: FLUTICASONE 50MCG/NASAL SPRAY 16GM BOTTLE. NS SCH (08:03)
[2019-10-05] MEDS: LOSARTAN POTASSIUM 25 MG TABLET. PO SCH (08:04)
[2019-10-05] MEDS: LACTOBACILLUS RHAMNOSUS GG 1 CAPSULE. PO SCH (08:04)
[2019-10-05] MEDS: metFORMIN 500 MG TABLET PO SCH (08:04)
[2019-10-05] MEDS: DOCUSATE SODIUM 100 MG CAPSULE. PO SCH (08:04)
[2019-10-05] MEDS: POLYETHYLENE GLYCOL 3350 17 GM PACKET. PO SCH (08:05)
--- NOTE | 2019-10-05 09:40 | SNU/HH DC ---
DISCHARGE WITH HOME HEALTH DISCHARGE INFORMATION: Discharge Date: Oct 05, 2019 Final Diagnosis: acute abd pain, ACUTE Cholecystitis. severe ; PATH reports acute hemorrhagic and chronic cholecystitis. DIABETES 2 overweight, BMI 29 weakness, and nausea and pain s/p surg on 09/30 : Laparoscopic cholecystectomy with intraoperative cholangiogram Problems Medical Problems: (1) Acute cholecystitis Status: Acute (2) Hyperglycemia Status: Acute CODE STATUS: Code Status: Full HOME HEALTH: Face to Face: I certify this patient is under my care and that I, or a nurse practitioner or physician's compliance assistant working with me, had a face to face encounter that meets the physician face to face encounter requirements with this patient on 10/04 Fdc For: Assess/Skilled Observatio, Medication Management, Pain Management RN For Eval/Treatment: Yes Physical Therapy For: Evalulation/Treatment Occupational Therapy For: Evaluation/Treatment Pt Meets Homebound Status: Poor coordination w/ amb., Unsteady balance w/ amb,, Extreme weakness w/ amb., Other: (recent abd surgery) POST DISCHARGE ORDERS: Activity Instructions for Disc: Activity as tolerated Weight Bearing Status after Di: As tolerated DIET AFTER DISCHARGE: Regular FOLLOW-UP: Follow up with: primary care and gen surgery TREATMENT/EQUIPMENT ORDERS: Adaptive Equipment Issued: Front wheeled walker CERTIFICATION STATEMENT: Certification Statement: Certification Statement: Based on the above finding, I certify that this patient is confined to the home and needs intermittent detention care, physical therapy and/or speech therapy, or continues to need occupational therapy.~ This patient is under my care, and I have initiated the establishment of the plan of care.~ This patient will be followed by myself or a community physician who will periodically review the plan of care. Home Meds Active Scripts Hydrocodone Bit/Acetaminophen (HYDROCODONE-APAP 5-325 ) 1 Tab Tablet, 1 TAB PO PRN Q4HRS PRN for MODERATE PAIN, #30 TAB Prov:ROCIO SAWYER MD 10/04/19 Reported Medications Hydroxyzine Pamoate (HYDROXYZINE PAMOATE) 25 Mg Capsule, 25 MG PO QIDPRN PRN for ANXIETY / AGITATION, CAP 09/30/19 Omeprazole (OMEPRAZOLE) 40 Mg Capsule.dr, 1 CAP PO DAILY for gerd, #30 CAP 3 Refills 09/30/19 Iloperidone (FANAPT) 6 Mg Tablet, 1 TAB PO HS for antipsychotic for 30 Days, #30 TAB 0 Refills 09/30/19 Losartan Potassium (LOSARTAN POTASSIUM ) 25 Mg Tablet, 25 MG PO DAILY, TAB 10/17/13 Simvastatin (SIMVASTATIN) 10 Mg Tablet, 10 MG PO HS for cholesterol , #30 TAB 0 Refills 10/17/13 Metformin Hcl (METFORMIN HCL) 500 Mg Tablet, 500 MG PO BIDWMEALS for ANTI- DIABETIC, TAB 0 Refills 10/17/13 Discontinued Reported Medications Hydrocodone/Acetaminophen (Hydrocodone-Acetamin 5-325 mg) 1 Each Tablet, 1 EACH PO Q4-6HRS PRN for PAIN, #40 TAB 05/30/19 ROCIO SAWYER MD Oct 05, 2019 09:40
[2019-10-05 11:13] VITALS: BP 142/69
[2019-10-05] MEDS ORDERED: OXYC5CAP PO (11:28)
[2019-10-05] MEDS ORDERED: ACET325T9 PO (11:28)
--- NOTE | 2019-10-05 12:31 | PDOC ---
[facility] 10/05/19 1231: SURGICAL PROGRESS NOTE Subjective tolerated diet pain about the same--does improve some, not worsening but always there-RUQ no emesis eating some Vital Signs Vital Signs Date Time Temp Pulse Resp B/P (MAP) Pulse Ox O2 Delivery O2 Flow Rate FiO2 10/05/19 12:13 Room Air 10/05/19 11:13 98.7 111 18 142/69 (93) 94 98.7 I&O Intake and Output 10/05/19 07:00 Intake Total 200 ml Balance 200 ml Intake Oral 200 ml # Voids 1 General: Alert, Oriented X3, Cooperative Abdomen: Soft, Other (ND, drain serosang ) Labs Laboratory Tests Test 10/03/19 16:16 10/04/19 08:07 10/04/19 10:15 10/04/19 11:28 Glucose (Fingerstick) 152 mg/dL (70-99) 167 mg/dL (70-99) 193 mg/dL (70-99) White Blood Count 7.4 x10^3/uL (4.0-11.0) Red Blood Count 4.00 x10^6/uL (3.50-5.40) Hemoglobin 10.4 g/dL (12.0-15.5) Hematocrit 31.6 % (36.0-47.0) Mean Corpuscular Volume 79 fL (79-100) Mean Corpuscular Hemoglobin 26 pg (25-35) Mean Corpuscular Hemoglobin Concent 33 g/dL (31-37) Red Cell Distribution Width 14.3 % (11.5-14.5) Platelet Count 365 x10^3/uL (140-400) Neutrophils (%) (Auto) 73 % (31-73) Lymphocytes (%) (Auto) 16 % (24-48) Monocytes (%) (Auto) 8 % (0-9) Eosinophils (%) (Auto) 2 % (0-3) Basophils (%) (Auto) 0 % (0-3) Neutrophils # (Auto) 5.4 x10^3/uL (1.8-7.7) Lymphocytes # (Auto) 1.2 x10^3/uL (1.0-4.8) Monocytes # (Auto) 0.6 x10^3/uL (0.0-1.1) Eosinophils # (Auto) 0.2 x10^3/uL (0.0-0.7) Basophils # (Auto) 0.0 x10^3/uL (0.0-0.2) Sodium Level 138 mmol/L (136-145) Potassium Level 3.3 mmol/L (3.5-5.1) Chloride Level 105 mmol/L (98-107) Carbon Dioxide Level 27 mmol/L (21-32) Anion Gap 6 (6-14) Blood Urea Nitrogen 7 mg/dL (7-20) Creatinine 1.0 mg/dL (0.6-1.0) Estimated GFR (Cockcroft-Gault) 67.3 BUN/Creatinine Ratio 7 (6-20) Glucose Level 217 mg/dL (70-99) Calcium Level 8.4 mg/dL (8.5-10.1) Total Bilirubin 0.3 mg/dL (0.2-1.0) Aspartate Amino Transf (AST/SGOT) 15 U/L (15-37) Alanine Aminotransferase (ALT/SGPT) 36 U/L (14-59) Alkaline Phosphatase 88 U/L (46-116) Total Protein 6.1 g/dL (6.4-8.2) Albumin 2.1 g/dL (3.4-5.0) Albumin/Globulin Ratio 0.5 (1.0-1.7) Test 10/04/19 16:56 10/04/19 19:57 10/05/19 07:41 10/05/19 11:10 Glucose (Fingerstick) 156 mg/dL (70-99) 186 mg/dL (70-99) 127 mg/dL (70-99) 185 mg/dL (70-99) Laboratory Tests Test 10/04/19 16:56 10/04/19 19:57 10/05/19 07:41 10/05/19 11:10 Glucose (Fingerstick) 156 mg/dL (70-99) 186 mg/dL (70-99) 127 mg/dL (70-99) 185 mg/dL (70-99) Problem List Problems Medical Problems: (1) Acute cholecystitis Status: Acute (2) Hyperglycemia Status: Acute Assessment/Plan s/p anurag ok to dc drain FU 1 week Justicifation of Admission Dx: Justifications for Admission: Justification of Admission Dx: Yes GROVER PARIS MD 10/05/19 1357: SURGICAL PROGRESS NOTE Assessment/Plan Agree with above MARLEY DUNNE APRN Oct 05, 2019 12:31 GROVER PARIS MD Oct 05, 2019 13:57
[2019-10-05] MEDS ORDERED: MAGN400C PO (13:52)
[2019-10-05] MEDS ORDERED: POTA8CAP19 PO (13:52)
--- NOTE | 2019-10-05 14:46 | PDOC3 ---
Discharge Summary Visit Information Date of Admission: Sep 29, 2019 Date of Discharge: Oct 05, 2019 Final Diagnosis acute abd pain, ACUTE Cholecystitis. severe noted on surg note, DIABETES 2 overweight, BMI 29 weakness, and nausea and pain Problems Medical Problems: (1) Acute cholecystitis Status: Acute (2) Hyperglycemia Status: Acute Brief Hospital Course Allergies Allergies Coded Allergies Type Severity Reaction Last Updated Verified Penicillins Allergy Intermediate 05/30/19 Yes codeine Allergy Intermediate 05/30/19 Yes Vital Signs Vital Signs Date Time Temp Pulse Resp B/P (MAP) Pulse Ox O2 Delivery O2 Flow Rate FiO2 10/05/19 13:25 Room Air 10/05/19 11:13 98.7 111 18 142/69 (93) 94 98.7 Lab Results Laboratory Tests Test 10/03/19 16:16 10/04/19 08:07 10/04/19 10:15 10/04/19 11:28 Glucose (Fingerstick) 152 mg/dL (70-99) 167 mg/dL (70-99) 193 mg/dL (70-99) White Blood Count 7.4 x10^3/uL (4.0-11.0) Red Blood Count 4.00 x10^6/uL (3.50-5.40) Hemoglobin 10.4 g/dL (12.0-15.5) Hematocrit 31.6 % (36.0-47.0) Mean Corpuscular Volume 79 fL (79-100) Mean Corpuscular Hemoglobin 26 pg (25-35) Mean Corpuscular Hemoglobin Concent 33 g/dL (31-37) Red Cell Distribution Width 14.3 % (11.5-14.5) Platelet Count 365 x10^3/uL (140-400) Neutrophils (%) (Auto) 73 % (31-73) Lymphocytes (%) (Auto) 16 % (24-48) Monocytes (%) (Auto) 8 % (0-9) Eosinophils (%) (Auto) 2 % (0-3) Basophils (%) (Auto) 0 % (0-3) Neutrophils # (Auto) 5.4 x10^3/uL (1.8-7.7) Lymphocytes # (Auto) 1.2 x10^3/uL (1.0-4.8) Monocytes # (Auto) 0.6 x10^3/uL (0.0-1.1) Eosinophils # (Auto) 0.2 x10^3/uL (0.0-0.7) Basophils # (Auto) 0.0 x10^3/uL (0.0-0.2) Sodium Level 138 mmol/L (136-145) Potassium Level 3.3 mmol/L (3.5-5.1) Chloride Level 105 mmol/L (98-107) Carbon Dioxide Level 27 mmol/L (21-32) Anion Gap 6 (6-14) Blood Urea Nitrogen 7 mg/dL (7-20) Creatinine 1.0 mg/dL (0.6-1.0) Estimated GFR (Cockcroft-Gault) 67.3 BUN/Creatinine Ratio 7 (-20) Glucose Level 217 mg/dL (70-99) Calcium Level 8.4 mg/dL (8.5-10.1) Total Bilirubin 0.3 mg/dL (0.2-1.0) Aspartate Amino Transf (AST/SGOT) 15 U/L (15-37) Alanine Aminotransferase (ALT/SGPT) 36 U/L (14-59) Alkaline Phosphatase 88 U/L (46-116) Total Protein 6.1 g/dL (6.4-8.2) Albumin 2.1 g/dL (3.4-5.0) Albumin/Globulin Ratio 0.5 (1.0-1.7) Test 10/04/19 16:56 10/04/19 19:57 10/05/19 07:41 10/05/19 11:10 Glucose (Fingerstick) 156 mg/dL (70-99) 186 mg/dL (70-99) 127 mg/dL (70-99) 185 mg/dL (70-99) Laboratory Tests Test 10/04/19 16:56 10/04/19 19:57 10/05/19 07:41 10/05/19 11:10 Glucose (Fingerstick) 156 mg/dL (70-99) 186 mg/dL (70-99) 127 mg/dL (70-99) 185 mg/dL (70-99) Brief Hospital Course Ms. Pinto is a 64 old female, admit with acute abd pain severe anurag, necrotic, on path s/p surg on 09/30, Dr. Alcala Lap anurag pain, nausea days after, felt well at DC, almost too weak to go home, snu considered on 10/02 Discharge Information Condition at Discharge: Improved Follow Up: Weeks Disposition/Orders: D/C to Home w/ HH Scheduled Iloperidone (Fanapt) 6 Mg Tablet, 1 TAB PO HS for antipsychotic for 30 Days, #30 Ref 0 (Reported) Entered as Reported by: LORIE HENAO on 09/30/19425 Last Action: Converted on 09/30/191330 by JOSE TREADWELL Losartan Potassium (Losartan Potassium ) 25 Mg Tablet, 25 MG PO DAILY, (Reported) Entered as Reported by: GOLDY REN on 10/17/13909 Last Action: Continued on 09/30/191330 by JOSE TREADWELL Magnesium Oxide (Magnesium) 400 Mg Capsule, 1 CAP PO DAILY for low magnesium for 30 Days, #30 Ref 0 Prescribed by: ROCIO SAWYER on 10/05/19 135 Metformin Hcl (Metformin Hcl) 500 Mg Tablet, 500 MG PO BIDWMEALS for ANTI- DIABETIC, Ref 0 (Reported) Entered as Reported by: GOLDY REN on 10/17/13909 Last Action: HELD on 10/03/19 1250 by ROCIO SAWYER Omeprazole (Omeprazole) 40 Mg Capsule.dr, 1 CAP PO DAILY for gerd, #30 Ref 3 (Reported) Entered as Reported by: LORIE HENAO on 09/30/19425 Last Action: Converted on 09/30/191330 by JOSE TREADWELL Polyethylene Glycol 3350 (Polyethylene Glycol 3350) 17 Gm Powd.pack, 17 GM PO DAILY for constipation, #30 Prescribed by: ROCIO SAWYER on 10/04/19 1120 Potassium Chloride (Potassium Chloride) 8 Meq Capsule.er, 1 CAP PO DAILY for hypokalemia for 30 Days, #20 Ref 0 Prescribed by: ROCIO SAWYER on 10/05/19 1352 Simvastatin (Simvastatin) 10 Mg Tablet, 10 MG PO HS for cholesterol , #30 Ref 0 (Reported) Entered as Reported by: GOLDY REN on 10/17/13909 Last Action: Continued on 09/30/191330 by JOSE TREADWELL Scheduled PRN Acetaminophen (Tylenol) 325 Mg Tablet, 2 TAB PO QID PRN for PAIN, #60 Prescribed by: ROCIO SAWYER on 10/05/19 1128 Hydroxyzine Pamoate (Hydroxyzine Pamoate) 25 Mg Capsule, 25 MG PO QIDPRN PRN for ANXIETY / AGITATION, (Reported) Entered as Reported by: LORIE HENAO on 09/30/19425 Last Action: Converted on 09/30/191 by JOSE TREADWELL Oxycodone Hcl (Oxycodone Hcl) 5 Mg Capsule, 5 MG PO PRN Q6HRS PRN for PAIN, #25 Ref 0 Prescribed by: ROCIO SAWYER on 10/05/198 Discontinued Medications Hydrocodone/Acetaminophen (Hydrocodone-Acetamin 5-325 mg) 1 Each Tablet, 1 EACH PO Q4-6HRS PRN for PAIN, #40 (Reported) Entered as Reported by: MACHO MARQUEZ on 05/30/19 1202 Last Action: Discontinued on 09/30/19425 by LORIE HENAO Patient Instructions Patient Instructions > 30 min face to face Justicifation of Admission Dx: Justifications for Admission: Justification of Admission Dx: Yes ROCIO SAWYER MD Oct 05, 2019 14:46
== END 2019-10-05 13:58 | disposition home health service (06) | DRG 417 ==
LOC: ER 16:57 → 4 NORTH 20:57
PROVIDERS: ADMIT Internal Medicine; ATTEND Internal Medicine
PROC: BF101ZZ Fluoroscopy of Bile Ducts using Low Osmolar Contrast (ICD-10-PCS; 2019-10-01)
PROC: 0FT44ZZ Resection of Gallbladder, Percutaneous Endoscopic Approach (ICD-10-PCS; principal; 2019-10-01 11:00)
DX: K81.0 Acute cholecystitis (principal); R65.11 Systemic inflammatory response syndrome (SIRS) of non-infectious origin with acute organ dysfunction; J90 Pleural effusion, not elsewhere classified; I10 Essential (primary) hypertension; E66.3 Overweight; K82.8 Other specified diseases of gallbladder; E11.65 Type 2 diabetes mellitus with hyperglycemia; Z20.828 Contact with and (suspected) exposure to other viral communicable diseases; E78.00 Pure hypercholesterolemia, unspecified; K21.9 Gastro-esophageal reflux disease without esophagitis; Z87.11 Personal history of peptic ulcer disease; Z90.710 Acquired absence of both cervix and uterus; Z87.891 Personal history of nicotine dependence; Z88.5 Allergy status to narcotic agent; Z88.0 Allergy status to penicillin; Z83.3 Family history of diabetes mellitus; Z68.29 Body mass index [BMI] 29.0-29.9, adult
CPT/HCPCS: 36415; 74177; 74300; 80048; 80053; 80307; 81001; 82962; 83605; 83690; 83735; 85025; 87040; 88304; 93005; 94640; 94760; 96361; 96365; 96375; 96376; 99285; A7015; G0480; J0330; J0360; J0780; J1100; J1650; J1815; J1885; J1956; J2405; J2704; J2710; J3010; J3475; J3490; J7030; J7120; Q9967; U0003; 97110-GP; 97530-GP; 97535-GO; G0378; J7613

== ENCOUNTER 2020-06-11 11:05 | Emergency (ER) | payer MEDICARE ==
[~2020-06-11 11:05] MED LIST changes: +ACET325T9 PO; +HYDR-2761 PO; +HYDR25CA75 PO; +ILOP6TAB2 PO; +MAGN400C PO; +OMEP40CA45 PO; +OXYC5CAP PO; +POLY17PO52 PO; +POTA8CAP19 PO
--- NOTE | 2020-06-11 15:57 | RAD ---
EXAM: CT Head without IV contrast INDICATION: Reason: HEAD AND NECK PAIN / Spl. Instructions: / History: TECHNIQUE: Multi-detector row CT images were obtained of the head without the use of IV contrast. All CT scans performed at this facility utilize dose optimization techniques as appropriate to the exam, including the following: Automated exposure control and adjustment of the mA and/or KV according to patient size (this includes techniques or standardized protocols for targeted exams where dose is ind ication/reason for exam). COMPARISON: None FINDINGS: BRAIN PARENCHYMA: No evidence of acute intraparenchymal hemorrhage or infarct. No abnormal parenchyma l density or mass. VENTRICLES & EXTRA-AXIAL SPACES: Ventricles are within normal limits. Basilar cisterns are patent. N o pathologic extra-axial fluid collection or mass. ORBITS: Orbital contents are unremarkable. SINUSES: Visualized paranasal sinuses and mastoid air cells are clear. OSSEOUS & SOFT TISSUES: Calvarium and skull base are intact. IMPRESSION: No acute intracranial pathology. EXAM: CT Cervical Spine without IV contrast INDICATION: Reason: HEAD AND NECK PAIN TECHNIQUE: Multi-detector row CT images were obtained through the cervical spine without the use of IV contrast. Post-processing sagittal and coronal reconstructed images were obtained for interpretati on. All CT scans performed at this facility utilize dose optimization techniques as appropriate to th e exam, including the following: Automated exposure control and adjustment of the mA and/or KV accord ing to patient size (this includes techniques or standardized protocols for targeted exams where dose is indication/reason for exam). COMPARISON: None FINDINGS: CRANIOCERVICAL JUNCTION: Unremarkable. ALIGNMENT: Alignment is within normal limits. OSSEOUS: No evidence of fracture or bone destruction. DISC SPACES: Mild multilevel disc space narrowing. FACET JOINTS: Unremarkable. SPINAL CANAL: Unremarkable. NEUROFORAMINA: Unremarkable. SOFT TISSUES: Unremarkable. IMPRESSION: Mild multilevel cervical degenerative changes. No acute osseous abnormality in the cervical spine. Electronically signed by: Guzman Mtz MD (06/11/2020 3:55 PM) [id number]
[2020-06-11] MEDS ORDERED: ACETAMINOPHEN 500 MG TABLET PO ONE (17:15)
== END 2020-06-11 15:00 | disposition home or self-care (01) ==
LOC: ER 11:05
DX: R51.9 Headache, unspecified (principal)
CPT/HCPCS: 70450; 72125; 99285

== ENCOUNTER → 2020-08-14 | Outpatient (CLI) | payer MEDICARE ==
--- NOTE | 2020-08-14 15:36 | KCIC ---
EXAM: Pelvic sonogram. HISTORY: Pelvic pain. TECHNIQUE: Sonographic imaging of the pelvis was performed. COMPARISON: None. FINDINGS: The uterus and right ovary is surgically absent. The left ovary is normal in size and demon strates normal blood flow. There is no pelvic free fluid. No pelvic mass or cyst is seen IMPRESSION: 1. Surgically absent uterus and right ovary. 2. Unremarkable left ovary. Electronically signed by: Blanca Najera MD (08/14/2020 3:34 PM) [id number]
== END ==
LOC: KCIC US 14:43
PROVIDERS: ATTEND Obstetrics & Gynecology
DX: R10.2 Pelvic and perineal pain (principal); Z90.49 Acquired absence of other specified parts of digestive tract; Z90.721 Acquired absence of ovaries, unilateral
CPT/HCPCS: 76856

== ENCOUNTER → 2020-08-21 | Outpatient (CLI) | payer MEDICARE ==
[~2020-08-21] MED LIST changes: +CONTRAST GIVEN. MC PRN; +IOHEXOL 240 MG/ML 50ML VIAL. PO ONE; +IOHEXOL 300 MG/ML 100ML VIAL. IV ONE
--- NOTE | 2020-08-21 11:41 | RAD ---
EXAM: Abdomen and pelvis CT with intravenous contrast. HISTORY: Pain. TECHNIQUE: Computed tomographic images of the abdomen and pelvis were obtained following the administ ration of intravenous contrast. Multiplanar reformatting was performed. *One or more of the following individualized dose reduction techniques were utilized for this examina tion: 1. Automated exposure control. 2. Adjustment of the mA and/or kV according to patient size. 3. Use of iterative reconstruction technique. COMPARISON: 09/29/2019. FINDINGS: Evaluation of the lower thorax demonstrates small left greater than right pleural effusions , the right of which is slightly decreased compared to the prior study. There is no infiltrate. There is bilateral basilar atelectasis. No hepatic lesion is seen. The gallbladder is absent. The pancreas, spleen and adrenal glands are unr emarkable. There is superior right renal cortical scarring. There is no hydronephrosis. There is no a ppendicitis. There is no bowel obstruction. There is colonic diverticulosis. There is no evidence of diverticuliti s. The bladder is unremarkable. The uterus is absent. There is a stable 1.2 cm mm left ovarian cyst. There is a small fat-containing subxiphoid hernia, new compared to the prior exam. The hernia sac bob sures 3.4 cm. The aorta is normal in caliber. There is no evidence of lymphadenopathy. There is no edmonds spicious osseous lesion. There is degenerative change primarily at the lumbosacral junction. IMPRESSION: 1. Colonic diverticulosis. There is no evidence of diverticulitis. 2. Small bilateral pleural effusions, the right of which is slightly decreased compared to the prior exam. 3. Small fat-containing subxiphoid hernia, new compared to the prior exam. 4. Stable small left ovarian cyst. The nearly one year course of stability favors benignity and this post menopausal patient. Electronically signed by: Blanca Najera MD (08/21/2020 11:39 AM) [id number]
== END ==
LOC: CT 08:53
PROVIDERS: ATTEND Internal Medicine
DX: K57.30 Diverticulosis of large intestine without perforation or abscess without bleeding (principal); N83.292 Other ovarian cyst, left side; K43.9 Ventral hernia without obstruction or gangrene; J90 Pleural effusion, not elsewhere classified; M47.817 Spondylosis without myelopathy or radiculopathy, lumbosacral region
CPT/HCPCS: 74177; Q9966; Q9967

== ENCOUNTER → 2020-12-02 | Day surgery (SDC) | payer MEDICARE ==
[~2020-12-02] VITALS: Ht 167.6 cm; Wt 81.6 kg
[~2020-12-02] MED LIST changes: +ATOR20TA58 PO; -CONTRAST GIVEN. MC PRN; +HYDROmorphone 2 MG/ML VIAL IVP PRN; -IOHEXOL 240 MG/ML 50ML VIAL. PO ONE; -IOHEXOL 300 MG/ML 100ML VIAL. IV ONE; +IV RINGERS,LACTATED 1000ML 1,000 ML IV SCH; +MORPHINE SULFATE 2 MG/ML INJ. IVP PRN; -OMEP40CA45 PO; +OMEP40CA7 PO; +PRIM50TA24 PO; +PROCHLORPERAZINE 10 MG/2 ML VIAL. IVP PRN; +PROPOFOL 10 MG/ML (20ML) VIAL. IV ONE; +ePHEDrine PF IN SALINE 50 MG/10 ML SYRINGE. IV ONE; +fentaNYL PF VIAL 100 MCG/2 ML VIAL IVP PRN
[2020-12-02 12:30] VITALS: BP 170/74
--- NOTE | 2020-12-02 13:13 | PDOC4 ---
PROCEDURE Procedure EGD/dilation Indication: dysphagia Meds: per anesthesia Findings: E--healed esophagitis of unclear baseline grade at 38cm. No stricture, narrowing. G--Normal D--Normal to second. Empirically dilated with 52F Hand w/o resistance. Karthikeyan. well. IMP: Healed reflux. REC: Continue PPI. F/u in 2 weeks to gauge response to dilation. Barium swallow if persistent issues. Resume diet and meds as at home. MIRA WEBB MD Dec 02, 2020 13:13
[2020-12-02 13:45] VITALS: BP 162/79
--- NOTE | 2020-12-06 10:24 | PDOC1 ---
History and Physical Date of Admission Date of Admission DATE: 12/06/20 TIME: 10:17 Identification/Chief Complaint Chief Complaint Chronic heartburn/occasional dysphagia. Source Source: Patient History of Present Illness History of Present Illness 64 year old female with chronic heartburn; remote EGD w/o details available. On PPI with continuing symptoms; mentions occasional dysphagia w/o regurgitation. H/o PUD? S/p cholecystectomy. No liver or pancreatic history. No diarrhea, constipation of overt bleeding. Prior colonoscopy ~2017 historically normal. Past Medical History Pulmonary: Asthma Endocrine: Diabetes Past Surgical History Past Surgical History: Breast Biopsy, Cholecystectomy, Hernia Repair, Hysterectomy Family History Family History Negative for GI issues. Social History Smoke: No ALCOHOL: none Drugs: None Current Medications Current Medications Current Medications Fentanyl Citrate (Fentanyl 2ml Vial) 25 mcg PRN Q5MIN PRN IVP MILD PAIN 1-3; Start 11/30/20 at 06:00; Stop 11/30/20 at 20:00; Status DC Fentanyl Citrate (Fentanyl 2ml Vial) 50 mcg PRN Q5MIN PRN IVP MODERATE PAIN 4- 6; Start 11/30/20 at 06:00; Stop 12/02/20 at 20:00; Status DC Morphine Sulfate (Morphine Sulfate) 1 mg PRN Q10MIN PRN IVP SEVERE PAIN 7-10; Start 11/30/20 at 06:00; Stop 11/30/20 at 20:00; Status DC Ringer's Solution 1,000 ml @ 30 mls/hr Q24H IV ; Start 11/30/20 at 06:00; Stop 11/30/20 at 17:59; Status DC Hydromorphone HCl (Dilaudid) 0.5 mg PRN Q10MIN PRN IVP SEVERE PAIN 7-10, 2nd CHOICE; Start 11/30/20 at 06:00; Stop 11/30/20 at 20:00; Status DC Prochlorperazine Edisylate (Compazine) 5 mg PACU PRN PRN IVP NAUSEA, MRX1; Start 11/30/20 at 06:00; Stop 11/30/20 at 20:00; Status DC Ringer's Solution 1,000 ml @ 75 mls/hr [id number] IV Last administered on 12/02/20at 12:47; Start 12/02/20 at 12:45; Stop 12/03/20 at 12:44; Status DC Propofol (Diprivan) 200 mg STK-MED ONCE IV ; Start 12/02/20 at 12:52; Stop 12/02/20 at 12:52; Status DC Ephedrine Sulfate (ePHEDrine PF IN SALINE SYRINGE) 50 mg STK-MED ONCE IV ; Start 12/02/20 at 12:52; Stop 12/02/20 at 12:52; Status DC Active Scripts Active Magnesium (Magnesium Oxide) 400 Mg Capsule 1 Cap PO DAILY 30 Days Potassium Chloride 8 Meq Capsule.er 1 Cap PO DAILY 30 Days Tylenol (Acetaminophen) 325 Mg Tablet 2 Tab PO QID PRN Polyethylene Glycol 3350 17 Gm Powd.pack 17 Gm PO DAILY Reported Atorvastatin Calcium 20 Mg Tablet 1 Tab PO HS Mysoline (Primidone) 50 Mg Tablet 25 Mg PO DAILY Omeprazole 40 Mg Capsule.dr 1 Cap PO DAILY Fanapt (Iloperidone) 6 Mg Tablet 1 Tab PO HS 30 Days Metformin Hcl 500 Mg Tablet 500 Mg PO TID Allergies Allergies: Coded Allergies: simvastatin (Verified Allergy, Severe, Anaphylaxis, 12/02/20) Penicillins (Verified Allergy, Intermediate, Unknown, 12/02/20) codeine (Verified Allergy, Intermediate, Nausea and Vomiting, 12/02/20) ROS Review of System Otherwise negative. Physical Exam General: Alert, Oriented X3, Cooperative, No acute distress HEENT: PERRLA, EOMI Lungs: Clear to auscultation Heart: S1S2, RRR, no gallops, no murmurs Abdomen: Normal bowel sounds, Soft, No tenderness, No hepatosplenomegaly, No masses Rectal Exam: not examined Extremities: No cyanosis, No edema Skin: No significant lesion Neuro: Normal gait, Normal speech, Strength at 5/5 X4 ext, Normal tone, Sensation intact, Cranial nerves 3-12 NL, Reflexes 2+ Psych/Mental Status: Mental status NL, Mood NL Vitals Vitals Vital Signs Date Time Temp Pulse Resp B/P (MAP) Pulse Ox O2 Delivery O2 Flow Rate FiO2 12/02/20 13:45 97.1 71 20 162/79 97 Room Air 97.1 VTE Prophylaxis Ordered VTE Prophylaxis Devices: No VTE Pharmacological Prophylaxi: No Assessment/Plan Assessment/Plan IMP: Chronic heartburn; Gibbons's to be ruled out. Occasional dysphagia. PLAN: EGD, possible dilation/biopsy. MIRA WEBB MD Dec 06, 2020 10:24
== END | disposition home or self-care (01) ==
LOC: ENDOS 12:07
PROVIDERS: ATTEND Internal Medicine Gastroenterology
DX: R13.10 Dysphagia, unspecified (principal); K21.00 Gastro-esophageal reflux disease with esophagitis, without bleeding; R12 Heartburn; K31.89 Other diseases of stomach and duodenum; J45.909 Unspecified asthma, uncomplicated; E11.9 Type 2 diabetes mellitus without complications; I10 Essential (primary) hypertension; E78.00 Pure hypercholesterolemia, unspecified; Z90.49 Acquired absence of other specified parts of digestive tract; Z90.710 Acquired absence of both cervix and uterus; Z98.890 Other specified postprocedural states; Z79.899 Other long term (current) drug therapy; Z87.891 Personal history of nicotine dependence; Z88.0 Allergy status to penicillin; Z88.5 Allergy status to narcotic agent; Z88.8 Allergy status to other drugs, medicaments and biological substances
CPT/HCPCS: 43235; 43450; J2704